=== PATIENT | male | born 1970 | race Caucasian/White ===

== ENCOUNTER 2017-05-10 21:29 | Inpatient (IN) | payer MEDICARE, BC ==
[2017-05-10] MEDS ORDERED: HYDROmorphone 2 MG/ML 1 ML SYRINGE IVP STA (22:17)
[2017-05-10] MEDS ORDERED: ONDANSETRON 4 MG/2 ML VIAL IVP STA (22:17)
[2017-05-10] MEDS ORDERED: SODIUM CHLORIDE 0.9% 1,000 ML IV STA ×2 (22:22)
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
[2017-05-10 22:49] LABS: Anisocytosis Moderate; Basophils % (A) 0 %; Eosinophils # (A) 0.1 k/uL (0-0.7); Eosinophils % (A) 1 %; HCT 31.2 % (39.0-53.0); HGB 9.4 gm/dL (13.0-17.5); Hypochromasia Marked; Lymphocytes # (A) 0.4 k/uL (1.0-4.8); Lymphocytes % (A) 7 %; MCH 23.4 pg (25.0-35.0); MCHC 30.1 g/dL (31.0-37.0); MCV 77.9 fL (80.0-100.0); Mean Platelet Volume 6.3; Microcytosis Moderate; Monocytes # (A) 0.2 k/uL (0-1.0); Monocytes % (A) 3 %; Neutrophils # (A) 5.3 k/uL (1.3-7.7); Neutrophils % (A) 88 %; Platelet Count 366 k/uL (150-450); Poikilocytosis Slight; RBC 4.01 m/uL (4.30-5.90); RDW 23.7 % (11.5-15.5); WBC 6.1 k/uL (3.8-10.6)
[2017-05-10 23:08] LABS: Creatine Kinase <20 U/L (55-170)
[2017-05-10 23:10] LABS: INR >10.0 (<1.2)
[2017-05-10 23:12] LABS: Partial Thromboplastin Time 90.4 sec (22.0-30.0)
[2017-05-10 23:13] LABS: Prothrombin Time >130.0 sec (9.0-12.0)
[2017-05-10 23:22] LABS: Creatine Kinase MB 0.5 ng/mL (0.0-2.4); Troponin I <0.012 ng/mL (0.000-0.034)
[2017-05-10 23:23] LABS: ALT 27 U/L (21-72); AST 14 U/L (17-59); Albumin 2.9 g/dL (3.5-5.0); Alkaline Phosphatase 172 U/L (38-126); Anion Gap 13 mmol/L; Blood Urea Nitrogen 4 mg/dL (9-20); Carbon Dioxide 20 mmol/L (22-30); Chloride 108 mmol/L (98-107); Glucose 146 mg/dL (74-99); Magnesium 1.7 mg/dL (1.6-2.3); Phosphorus 3.8 mg/dL (2.5-4.5); Sodium 141 mmol/L (137-145); Total Bilirubin 0.3 mg/dL (0.2-1.3); Total Protein 6.9 g/dL (6.3-8.2)
[2017-05-10] MEDS ORDERED: PHYTONADIONE ORAL 5 MG/5 ML ORAL.SYRG PO STA (23:32)
[2017-05-10 23:33] LABS: Potassium 3.3 mmol/L (3.5-5.1)
[2017-05-10] MEDS ORDERED: HYDROmorphone 1 MG/ML 1 ML SYRINGE IVP PRN (23:33)
[2017-05-10] MEDS ORDERED: PHYTONADIONE 5 MG in SODIUM CHLORIDE 0.9% 50 ML IVPB STA (23:54)
[2017-05-11] MEDS ORDERED: HYDROmorphone 2 MG/ML 1 ML SYRINGE IVP PRN (01:25)
[2017-05-11] MEDS ORDERED: Potassium Replacement Protocol 1 EACH MISC MISCELLANE PRN (04:24)
[2017-05-11] MEDS ORDERED: Magnesium Replacement Protocol 1 EACH MISC MISCELLANE PRN (04:25)
[2017-05-11] MEDS: HYDROmorphone 2 MG/ML 1 ML SYRINGE IVP PRN ×3 (04:46→09:54)
[2017-05-11] MEDS: ONDANSETRON 4 MG/2 ML VIAL IVP PRN ×2 (04:48→09:53)
[2017-05-11] MEDS: MAGNESIUM SULFATE-D5W PMX 1 GM in DEXTROSE/WATER 1 100ML.BAG IVPB SCH ×2 (04:49→05:54)
[2017-05-11] MEDS: METOCLOPRAMIDE 5 MG/ML 2 ML VIAL IVP SCH ×3 (05:54→17:09)
[2017-05-11] MEDS: POTASSIUM CHLORIDE 10 MEQ in WATER FOR INJECTION 1 100ML.BAG IVPB SCH ×2 (07:59→09:14)
[2017-05-11] MEDS ORDERED: PANTOPRAZOLE 40 MG/10 ML VIAL IVP SCH (09:00)
[2017-05-11 09:53] LABS: Anisocytosis Moderate; Basophils % (A) 0 %; Eosinophils % (A) 0 %; HCT 33.7 % (39.0-53.0); HGB 10.1 gm/dL (13.0-17.5); Hypochromasia Marked; Lymphocytes # (A) 0.8 k/uL (1.0-4.8); Lymphocytes % (A) 9 %; MCH 23.8 pg (25.0-35.0); MCV 79.2 fL (80.0-100.0); Mean Platelet Volume 6.4; Microcytosis Moderate; Monocytes # (A) 0.4 k/uL (0-1.0); Monocytes % (A) 4 %; Neutrophils % (A) 86 %; Platelet Count 526 k/uL (150-450); Poikilocytosis Moderate; RBC 4.26 m/uL (4.30-5.90); RDW 22.2 % (11.5-15.5); WBC 9.3 k/uL (3.8-10.6)
[2017-05-11 09:55] LABS: INR 2.2 (<1.2); Prothrombin Time 20.3 sec (9.0-12.0)
[2017-05-11 10:07] LABS: ALT 26 U/L (21-72); AST 14 U/L (17-59); Albumin 3.2 g/dL (3.5-5.0); Alkaline Phosphatase 184 U/L (38-126); Anion Gap 14 mmol/L; Blood Urea Nitrogen 3 mg/dL (9-20); Calcium 9.5 mg/dL (8.4-10.2); Carbon Dioxide 22 mmol/L (22-30); Chloride 109 mmol/L (98-107); Glucose 124 mg/dL (74-99); Potassium 3.7 mmol/L (3.5-5.1); Sodium 145 mmol/L (137-145); Total Bilirubin 0.3 mg/dL (0.2-1.3); Total Protein 7.4 g/dL (6.3-8.2)
[2017-05-11] MEDS: HYDROmorphone 2 MG TAB PO PRN ×2 (13:27→20:30)
[2017-05-11] MEDS: LISINOPRIL 20 MG TAB PO SCH (17:09)
[2017-05-11] MEDS: PANTOPRAZOLE 40 MG/10 ML VIAL IVP SCH (20:30)
[2017-05-11] MEDS ORDERED: ALTEPLASE 2 MG VIAL (CATHFLO) IV STA (22:53)
[2017-05-12] MEDS: METOCLOPRAMIDE 5 MG/ML 2 ML VIAL IVP SCH ×5 (00:19→18:50)
[2017-05-12] MEDS ORDERED: ONDANSETRON 4 MG TAB PO PRN (00:21)
[2017-05-12] MEDS: HYDROmorphone 2 MG TAB PO PRN ×6 (01:17→23:52)
[2017-05-12 05:34] LABS: Anisocytosis Moderate; Basophils % (A) 0 %; Eosinophils # (A) 0.1 k/uL (0-0.7); Eosinophils % (A) 1 %; HCT 27.5 % (39.0-53.0); Hypochromasia Marked; Lymphocytes # (A) 1.2 k/uL (1.0-4.8); Lymphocytes % (A) 13 %; MCH 23.5 pg (25.0-35.0); MCHC 29.3 g/dL (31.0-37.0); MCV 80.3 fL (80.0-100.0); Mean Platelet Volume 6.6; Microcytosis Moderate; Monocytes # (A) 0.5 k/uL (0-1.0); Monocytes % (A) 5 %; Neutrophils # (A) 7.2 k/uL (1.3-7.7); Neutrophils % (A) 80 %; Platelet Count 342 k/uL (150-450); Poikilocytosis Slight; RBC 3.43 m/uL (4.30-5.90); RDW 23.4 % (11.5-15.5); WBC 9.1 k/uL (3.8-10.6)
[2017-05-12 05:38] LABS: INR 1.5 (<1.2); Prothrombin Time 14.2 sec (9.0-12.0)
[2017-05-12 05:42] LABS: HGB 8.1 gm/dL (13.0-17.5)
[2017-05-12 05:48] LABS: Anion Gap 13 mmol/L; Blood Urea Nitrogen 3 mg/dL (9-20); Calcium 8.7 mg/dL (8.4-10.2); Carbon Dioxide 23 mmol/L (22-30); Chloride 103 mmol/L (98-107); Glucose 148 mg/dL (74-99); Magnesium 1.6 mg/dL (1.6-2.3); Potassium 3.9 mmol/L (3.5-5.1); Sodium 139 mmol/L (137-145)
[2017-05-12] MEDS: LISINOPRIL 20 MG TAB PO SCH (08:03)
--- NOTE | 2017-05-12 09:11 | HP ---
HISTORY AND PHYSICAL DATE OF SERVICE: 05/11/2017 I am covering for Dr. Ruvalcaba. CHIEF COMPLAINT: Nausea, vomiting, diarrhea. HISTORY OF PRESENT ILLNESS: This 46-year-old gentleman with a past medical history of multiple complex medical issues including DVT, history of GERD, hypertension history and infected endocarditis from infection of PICC line, history of kidney failure, history of DJD, history of multiple abdominal surgeries, osteomyelitis being followed by Dr. Juan Carlos Ruvalcbaa in the outpatient setting is admitted with abdominal pain, diffuse in character, nausea, vomiting, and diarrhea. Patient had intractable vomiting. Patient also had acute on chronic pain syndrome also. The patient unable to keep anything down. The patient admitted for further evaluation and treatment. There is no history of any fever, rigors. There is no history of headache, loss of consciousness, seizures. PAST MEDICAL HISTORY: History of DVT, history of GERD, history of DJD, history pneumonia, history of endocarditis, history of MRSA. MEDICATIONS: The home medications are: 1. Dilaudid 8 mg q.4 p.r.n. 2. Zofran 8 mg b.i.d. p.r.n. 3. Iron sulfate 1 p.o. daily. 4. Rifadin, rifampin, 600 mg p.o. daily. 5. Zestril 20 mg p.o. daily. 6. Iron Sulfate 325 mg p.o. daily. 7. MiraLAX 17 grams daily p.r.n. 8. Naprosyn 500 mg p.o. b.i.d. p.r.n. 9. Duragesic patch q.48 hours. 10.Zantac 150 mg p.o. b.i.d. 11.Benadryl 25 mg. 12.Tylenol 1000 mg t.i.d. 13.Zanaflex p.o. q.6 p.r.n. ALLERGIES: Allergies are AMPICILLIN, GENTAMICIN, IODINATED CONTRAST DYE, PEMOLINE, VANCOMYCIN. FAMILY HISTORY: History hyperlipidemia in the family. SOCIAL HISTORY: No history of smoking. No history of alcohol intake. REVIEW OF SYSTEMS: ENT: No diminished hearing or diminished vision. CARDIOVASCULAR SYSTEM: No angina. RESPIRATORY SYSTEM: No cough. GI: As mentioned earlier. : No dysuria. NERVOUS SYSTEM: No numbness or weakness. ALLERGY IMMUNOLOGY: No asthma or hayfever. MUSCULOSKELETAL: As mentioned earlier. HEMATOLOGY/ONCOLOGY: As mentioned earlier. ENDOCRINE: No history of diabetes or hypothyroidism. CONSTITUTIONAL: As mentioned earlier. DERMATOLOGY: Negative. RHEUMATOLOGY: Negative. PSYCHIATRY: As mentioned earlier. PHYSICAL EXAMINATION: The patient is alert and oriented x3. Pulse 91, blood pressure 179/80, respirations 16, temperature 97.4, pulse ox 100% on 4 L. HEENT: Conjunctivae normal. Oral mucosa moist. Neck is no jugular venous distention or carotid bruit. No lymph node enlargement. CARDIOVASCULAR: S1 and S2 muffled. No S3 or S4. RESPIRATORY: Breath sounds diminished at the bases. Few scattered rhonchi. No crackles. ABDOMEN: Soft. Mild diffuse discomfort on palpation. No guarding and no rigidity noted. No mass palpable. LEGS: No edema, no swelling. NERVOUS SYSTEM: Higher function as mentioned earlier. Moves all 4 limbs. No focal deficits. LYMPHATICS: No lymphadenopathy of the neck, axillae or groin. SKIN: No ulcer, rash or bleeding. LABS: WBCntd, hemoglobin 9.4. INR is more than 10. Sodium 141, potassium 3.3. ASSESSMENT: 1. Abdominal pain, nausea, vomiting, diarrhea, possible acute gastroenteritis. 2. Severe abdominal pain acute on chronic pain. 3. Coumadin coagulopathy. 4. Anemia microcytic. 5. Hypokalemia. 6. History of deep vein thrombosis. 7. History of gastroesophageal reflux disease. 8. History of degenerative joint disease. 9. History of pneumonia. 10.History of endocarditis from infected PICC line. 11.History hypertension. 12.History of kidney failure related to vancomycin. 13.History of septic shock. 14.History of splenomegaly. 15.History of methicillin-resistant Staphylococcus aureus. 16.History MDRO. 17.History of appendectomy. 18.History of anxiety. RECOMMENDATIONS AND DISCUSSION: This 46-year-old gentleman who presented with multiple complex medical issues, will monitor the patient closely, continue the current medications, continue symptomatic treatment. will be given. Will monitor PT/INR closely. I would also recommend follow with repeat labs. Other than that, pain medications ordered including fentanyl patch. The rest of the medication will be ordered once the patient is improving from the vomiting. Otherwise I would also recommend a stool for C difficile testing. Guarded prognosis. Further recommendations to follow. Will obtain cultures. MMODL / IJN: [id number] / HUSAM
[2017-05-12] MEDS: MAGNESIUM SULFATE-D5W PMX 1 GM in DEXTROSE/WATER 1 100ML.BAG IVPB SCH ×2 (09:27→10:39)
[2017-05-12] MEDS: PANTOPRAZOLE 40 MG/10 ML VIAL IVP SCH (09:27)
--- NOTE | 2017-05-12 12:53 | P.PN ---
Subjective Patient resting in bed continues to complain of generalized abdominal pain. Noted to have incisional hernias. We'll consult surgery regarding abdominal pain Objective - Vital Signs Vital signs: Vital Signs Temp 97.8 F 05/12/17 07:00 Pulse 58 L 05/12/17 07:00 Resp 16 05/12/17 07:00 BP 118/93 05/12/17 11:05 Pulse Ox 98 05/12/17 07:00 Intake & Output 05/11/17 05/12/17 05/12/17 18:59 06:59 18:59 Intake Total 200 Output Total 3 Balance 197 Intake: Oral 200 Output: Urine/Stool Mix 3 Other: Voiding Method Bedside Commode Urinal Urinal Urinal # Voids 2 2 # Bowel Movements 1 - Constitutional General appearance: Present: mild distress - EENT Eyes: Present: PERRLA Ears: bilateral: normal - Neck Neck: Present: normal ROM - Respiratory Respiratory: bilateral: CTA - Cardiovascular Rhythm: regular - Gastrointestinal General gastrointestinal: Present: decreased bowel sounds, soft Localized gastrointestinal: tender: diffuse - Integumentary Integumentary: Present: normal - Neurologic Neurologic: Present: CNII-XII intact - Musculoskeletal Musculoskeletal: Present: generalized weakness - Psychiatric Psychiatric: Present: A&O x's 3, appropriate affect, intact judgment & insight - Labs CBC & Chem 7: 05/12/17 05:20 05/12/17 05:20 Labs: Abnormal Lab Results - Last 24 Hours (Table) 05/12/17 05/12/17 05/12/17 Range/Units 05:20 05:20 05:20 RBC 3.43 L (4.30-5.90) m/uL Hgb 8.1 L D (13.0-17.5) gm/dL Hct 27.5 L (39.0-53.0) % MCH 23.5 L (25.0-35.0) pg MCHC 29.3 L (31.0-37.0) g/dL RDW 23.4 H (11.5-15.5) % PT 14.2 H (9.0-12.0) sec INR 1.5 H (<1.2) BUN 3 L (9-20) mg/dL Glucose 148 H (74-99) mg/dL Assessment and Plan Plan: Assessment Abdominal pain with the nausea vomiting diarrhea Coumadin coagulopathy anemia microcytic Hyperkalemia History of right arm DVT History of GERD Lumbar osteomyelitis history with surgery D April 10 at [place] History of endocarditis from infected PICC line Hypertension History of MRSA Plan Consultation with surgery
--- NOTE | 2017-05-12 13:32 | XR ---
EXAMINATION TYPE: XR abdomen acute w cxr DATE OF EXAM: 05/12/2017 COMPARISON: NONE HISTORY: Incisional hernia abdominal pain TECHNIQUE: Abdomen is examined in the supine and upright views and supplemented with a frontal chest. FINDINGS: There may be some mild infiltrate within the right lower lobe. No free air is under the diaphragm. Pedicle screws and fixation rods within the lumbar spine are pres ent. Disc spacer is present. Normal colonic bowel gas is present. No free air is evident. No differential air-fluid levels are pre sent. No mass effect is evident. Organomegaly is not present. IMPRESSION: 1. Unremarkable abdomen. 2. Suggestion of mild right lower lobe infiltrate. Clinical correlation recommended.
[2017-05-12] MEDS ORDERED: AZITHROMYCIN 500 MG in SODIUM CHLORIDE 0.9% 250 ML IVPB STA (15:10)
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
[2017-05-12] MEDS: PANTOPRAZOLE 40 MG TABLET PO SCH (17:32)
--- NOTE | 2017-05-12 21:39 | US ---
EXAMINATION TYPE: US venous doppler duplex LE DATE OF EXAM: 05/12/2017 9:13 PM COMPARISON: NONE CLINICAL HISTORY: red hot swollen feet and pitting edema. SIDE PERFORMED: Bilateral TECHNIQUE: The lower extremity deep venous system is examined utilizing real time linear array sonog lina with graded compression, doppler sonography and color-flow sonography. VESSELS IMAGED: External Iliac Vein (EIV) Common Femoral Vein Deep Femoral Vein Greater Saphenous Vein * Femoral Vein Popliteal Vein Small Saphenous Vein * Proximal Calf Veins (* superficial vessels) FINDINGS: Grayscale, color doppler, spectral doppler imaging performed of the deep veins of the lower extremities. There is normal flow, compressibility, vascular waveforms. IMPRESSION: 1. RIGHT LOWER EXTREMITY: NEGATIVE FOR DVT 2. LEFT LOWER EXTREMITY: NEGATIVE FOR DVT
[2017-05-12] MEDS: HYDROmorphone 2 MG/ML 1 ML SYRINGE IVP PRN (22:29)
[2017-05-13] MEDS: LEVOFLOXACIN 750MG-D5W PMX 750 MG in DEXTROSE/WATER 1 150ML.BAG IVPB SCH (00:08)
[2017-05-13] MEDS: DAPTOmycin IN 0.9% NACL 500 MG/10 ML SYRINGE IVP SCH (00:09)
[2017-05-13] MEDS: METOCLOPRAMIDE 5 MG/ML 2 ML VIAL IVP SCH ×4 (00:09→17:46)
[2017-05-13] MEDS: HYDROmorphone 2 MG/ML 1 ML SYRINGE IVP PRN ×5 (02:07→17:46)
[2017-05-13] MEDS: HYDROmorphone 2 MG TAB PO PRN ×5 (03:24→20:36)
[2017-05-13] MEDS: LISINOPRIL 20 MG TAB PO SCH (07:35)
[2017-05-13] MEDS: PANTOPRAZOLE 40 MG TABLET PO SCH ×2 (07:36→17:46)
--- NOTE | 2017-05-13 10:27 | P.PN ---
<MargaritoRosie M - Last Filed: 05/13/17 11:51> Subjective Progress Note Date: 05/13/17 46-year-old male seen and examined sitting up in a chair currently denying any abdominal pain reports no nausea vomiting states the symptoms have resolved. Labs this morning pending. Is being seen at the request of the attending for a surgical eval for abdominal discomfort in a patient who has known umbilical hernia being treated conservatively by his attending surgeon Dr.kim Ruvalcaba Objective - Vital Signs Vital signs: Vital Signs Temp 97.5 F L 05/13/17 07:00 Pulse 97 05/13/17 07:00 Resp 17 05/13/17 07:00 BP 140/90 05/13/17 07:00 Pulse Ox 99 05/13/17 00:58 Intake & Output 05/12/17 05/13/17 05/13/17 18:59 06:59 18:59 Intake Total 600 180 Output Total 400 Balance -400 600 180 Intake: IV 150 Levofloxacin 750Mg-D5w 150 Pmx 750 mg In Dextrose/ Water 1 150ml.bag @ 100 mls/hr IVPB Q24H PRISCILLA Rx#: [id number] Oral 450 180 Output: Urine 400 Other: Voiding Method Urinal Toilet Urinal # Voids 2 2 - Exam Physical exam 46-year-old sitting up in a chair pleasant cooperative oriented 3 Lungs adequate air movement bilaterally Heart S1-S2 audible regular Abdomen multiple surgical scars well-healed umbilical hernia noted soft not distended taking diet no nausea no vomiting states stooling Extremities no edema - Labs CBC & Chem 7: 05/12/17 05:20 05/12/17 05:20 Labs: Microbiology - Last 24 Hours (Table) 05/11/17 07:53 Blood Culture Gram Stain - Preliminary Blood Blood Culture - Preliminary 05/12/17 07:45 Blood Culture - Final Blood 05/12/17 10:45 Urine Culture - Preliminary Urine,Clean Catch Assessment and Plan Assessment: Impression Present on admission abdominal pain nausea vomiting diarrhea resolved Known history of umbilical hernias Present on admission Coumadin coagulopathy Lumbar osteomyelitis with a recent lumbar surgery April 10 at [facility] History of endocarditis from an infected PICC line History of MRSA infection Plan No evidence of an acute surgical abdomen Defer to medicine to manage medical issues Will follow with further surgical recommendations Conservative care continue with the use of an abdominal binder Progress note dictated for The above impression and plan of care have been discussed and directed by signing physician. Rosie Pimentel nurse practitioner acting as scribe for signing physician. <Uriah Goetz - Last Filed: 05/13/17 17:30> Objective - Vital Signs Vital signs: Vital Signs Temp 97.3 F L 05/13/17 14:13 Pulse 87 05/13/17 14:13 Resp 16 05/13/17 14:13 BP 128/70 05/13/17 14:13 Pulse Ox 97 05/13/17 14:13 Intake & Output 05/12/17 05/13/17 05/13/17 18:59 06:59 18:59 Intake Total 600 360 Output Total 400 Balance -400 600 360 Intake: IV 150 Levofloxacin 750Mg-D5w 150 Pmx 750 mg In Dextrose/ Water 1 150ml.bag @ 100 mls/hr IVPB Q24H PRISCILLA Rx#: [id number] Oral 450 360 Output: Urine 400 Other: Voiding Method Urinal Toilet Urinal # Voids 2 1 - Labs CBC & Chem 7: 05/12/17 05:20 05/12/17 05:20 Labs: Microbiology - Last 24 Hours (Table) 05/12/17 10:45 Urine Culture - Final Urine,Clean Catch 05/11/17 07:53 Blood Culture Gram Stain - Preliminary Blood Blood Culture - Preliminary Gram Neg Bacilli 05/12/17 07:45 Blood Culture - Final Blood Assessment and Plan Plan: Patient has an incisional hernia. It is chronic in nature. He has no obstructive symptoms of pain. No surgical intervention is planned at this point. We'll follow as needed.
--- NOTE | 2017-05-13 11:57 | P.PN ---
Subjective Patient sitting up in the chair complaints offered at this time other than chronic back pain. Patient had positive blood cultures Dr. Amaral consult and started on daptomycin and Levaquin Objective - Vital Signs Vital signs: Vital Signs Temp 97.5 F L 05/13/17 07:00 Pulse 97 05/13/17 07:00 Resp 17 05/13/17 07:00 BP 140/90 05/13/17 07:00 Pulse Ox 99 05/13/17 00:58 Intake & Output 05/12/17 05/13/17 05/13/17 18:59 06:59 18:59 Intake Total 600 180 Output Total 400 Balance -400 600 180 Intake: IV 150 Levofloxacin 750Mg-D5w 150 Pmx 750 mg In Dextrose/ Water 1 150ml.bag @ 100 mls/hr IVPB Q24H PRISCILLA Rx#: [id number] Oral 450 180 Output: Urine 400 Other: Voiding Method Urinal Toilet Urinal # Voids 2 2 - Constitutional General appearance: Present: mild distress - EENT Eyes: Present: abnormal pupil Ears: bilateral: normal - Neck Neck: Present: normal ROM - Respiratory Respiratory: bilateral: CTA - Cardiovascular Rhythm: regular - Gastrointestinal General gastrointestinal: Present: soft - Integumentary Integumentary: Present: normal - Neurologic Neurologic: Present: CNII-XII intact - Musculoskeletal Musculoskeletal: Present: generalized weakness - Labs CBC & Chem 7: 05/12/17 05:20 05/12/17 05:20 Labs: Microbiology - Last 24 Hours (Table) 05/11/17 07:53 Blood Culture Gram Stain - Preliminary Blood Blood Culture - Preliminary Gram Neg Bacilli 05/12/17 07:45 Blood Culture - Final Blood 05/12/17 10:45 Urine Culture - Preliminary Urine,Clean Catch - Imaging and Cardiology Chest x-ray: report reviewed Abdominal x-ray: report reviewed Assessment and Plan Plan: Assessment Abdominal pain with vomiting and diarrhea Pneumonia Sepsis as evidenced by positive blood cultures Coumadin coagulopathy Anemia microcytic Hypokalemia History of DVT right arm 3 weeks ago from [facility] GERD Degenerative joint disease Remote history of endocarditis from infected PICC line Hypertension History of splenomegaly Anxiety history Lumbar osteomyelitis and treated at [place] in 04/10/2017 Plan Cleared by surgery for abdominal pain Dr. Amaral consult did regarding sepsis
--- NOTE | 2017-05-13 16:37 | US ---
EXAMINATION TYPE: US venous doppler duplex UE RT DATE OF EXAM: 05/13/2017 COMPARISON: NONE CLINICAL HISTORY: right arm DVT Hx of blood clot right arm 2 weeks prior done at another hospital. SIDE PERFORMED: right Preliminary results left with Christie (charge nurse) following exam at 3:30pm Right Arm: Positive for DVT Thready flow in subclavian v, prox through distal, axilla v shows thrombus which extends through the lower brachial v's Cephalic v too small to show flow. There is satisfactory color flow phasicity and compressibility in the right internal jugular vein. Th ere is evidence of clot beginning in the distal subclavian vein near axillary vein junction extending into the right upper extremity. IMPRESSION: Persistent DVT in the right upper extremity extending through axillary vein and proximal subclavian vein near axilla. Results communicated to patient's nurse via telephone by cat scan technologist shortly after exam w as completed.
[2017-05-13 20:15] LABS: Anisocytosis Moderate; Basophils % (A) 0 %; Eosinophils # (A) 0.5 k/uL (0-0.7); Eosinophils % (A) 8 %; HCT 28.6 % (39.0-53.0); HGB 8.5 gm/dL (13.0-17.5); Hypochromasia Marked; Lymphocytes # (A) 0.7 k/uL (1.0-4.8); Lymphocytes % (A) 11 %; MCH 23.9 pg (25.0-35.0); MCHC 29.6 g/dL (31.0-37.0); MCV 80.6 fL (80.0-100.0); Mean Platelet Volume 6.2; Microcytosis Slight; Monocytes # (A) 0.3 k/uL (0-1.0); Monocytes % (A) 4 %; Neutrophils # (A) 4.4 k/uL (1.3-7.7); Neutrophils % (A) 75 %; Platelet Count 250 k/uL (150-450); Poikilocytosis Slight; RBC 3.54 m/uL (4.30-5.90); RDW 21.2 % (11.5-15.5); WBC 5.8 k/uL (3.8-10.6)
[2017-05-13 20:20] LABS: INR 1.2 (<1.2); Prothrombin Time 11.4 sec (9.0-12.0)
[2017-05-13 20:23] LABS: Anion Gap 10 mmol/L; Blood Urea Nitrogen 5 mg/dL (9-20); Carbon Dioxide 25 mmol/L (22-30); Chloride 100 mmol/L (98-107); Glucose 107 mg/dL (74-99); Magnesium 1.5 mg/dL (1.6-2.3); Potassium 3.7 mmol/L (3.5-5.1); Sodium 135 mmol/L (137-145)
[2017-05-13] MEDS: MAGNESIUM SULFATE-D5W PMX 1 GM in DEXTROSE/WATER 1 100ML.BAG IVPB SCH ×2 (22:00→23:25)
--- NOTE | 2017-05-13 22:48 | CONS ---
CONSULTATION This is a 46-year-old gentleman who has a complex history. He has history of lumbar surgery and postop the patient has of the lumbar spine. The patient on IV antibiotics. 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 Ultrasound done today shows axillary and subclavian vein DVT. The patient has a known history of DVT due to the PICC line on the right subclavian vein. No history of any chest pain. Patient came with nausea and vomiting and abdominal pain. Patient has a hernia repair done in the past by Dr. Ruvalcaba. The patient was seen by Dr. Goetz. His belly is soft and he is tolerating diet and activity well. EXAMINATION: Patient was seen in his room in sitting position. NECK: Supple. CHEST: Clear to auscultation. Right arm brachial radial and femoral pulses present. There is no vascular compromise noted of the right lower and upper extremities. Patient has a PICC line on the left side for long-term antibiotics. Patient came with high INR and his Coumadin has been stopped. At present patient is not on any anticoagulation. Since the patient has a DVT of the right arm, the patient will be on anticoagulation. I have recommendation to have the consult with Dr. Cummings to evaluate whether the patient can go on Xarelto or Eliquis because the patient is on Coumadin. His INR came with very high INR of 17 and the patient has not taken his Coumadin for the last 1 week and his INR is within normal limits. Patient has to be on some anticoagulation. I will have an opinion from Dr. Cummings. We will follow with you. At this point, patient does not need any surgical intervention. Thank you very much for the consultation. MMODL / IJN: [id number] /
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
[2017-05-14] MEDS: METOCLOPRAMIDE 5 MG/ML 2 ML VIAL IVP SCH ×5 (00:37→23:55)
[2017-05-14] MEDS: DAPTOmycin IN 0.9% NACL 500 MG/10 ML SYRINGE IVP SCH ×2 (00:37→22:04)
[2017-05-14] MEDS: LEVOFLOXACIN 750MG-D5W PMX 750 MG in DEXTROSE/WATER 1 150ML.BAG IVPB SCH (00:38)
[2017-05-14] MEDS: HYDROmorphone 2 MG TAB PO PRN ×7 (00:38→23:55)
[2017-05-14 07:28] LABS: INR 1.2 (<1.2); Prothrombin Time 11.2 sec (9.0-12.0)
[2017-05-14 07:33] LABS: Anisocytosis Moderate; Basophils % (A) 0 %; Eosinophils # (A) 0.6 k/uL (0-0.7); Eosinophils % (A) 13 %; HCT 26.2 % (39.0-53.0); Hypochromasia Marked; Lymphocytes # (A) 0.7 k/uL (1.0-4.8); Lymphocytes % (A) 14 %; MCH 24.2 pg (25.0-35.0); MCHC 30.4 g/dL (31.0-37.0); MCV 79.4 fL (80.0-100.0); Mean Platelet Volume 7.1; Microcytosis Moderate; Monocytes # (A) 0.2 k/uL (0-1.0); Monocytes % (A) 5 %; Neutrophils % (A) 66 %; Platelet Count 238 k/uL (150-450); Poikilocytosis Slight; RDW 22.6 % (11.5-15.5); WBC 4.5 k/uL (3.8-10.6)
[2017-05-14 07:58] LABS: Anion Gap 12 mmol/L; Blood Urea Nitrogen 6 mg/dL (9-20); Calcium 8.9 mg/dL (8.4-10.2); Carbon Dioxide 23 mmol/L (22-30); Chloride 100 mmol/L (98-107); Glucose 187 mg/dL (74-99); Magnesium 1.8 mg/dL (1.6-2.3); Potassium 3.9 mmol/L (3.5-5.1); Sodium 135 mmol/L (137-145)
--- NOTE | 2017-05-14 08:09 | P.PN ---
Subjective Progress Note Date: 05/14/17 Pleasant 46-year-old male sitting up in a chair taking a diet. Recommendations by infectious disease reviewed noted and appreciated patient states abdominal pain with nausea and vomiting symptoms that he had on admission have resolved. Objective - Vital Signs Vital signs: Vital Signs Temp 97.4 F L 05/14/17 07:54 Pulse 76 05/14/17 07:54 Resp 16 05/14/17 07:54 BP 114/65 05/14/17 07:54 Pulse Ox 96 05/14/17 07:54 Intake & Output 05/13/17 05/14/17 05/14/17 18:59 06:59 18:59 Intake Total 360 Balance 360 Intake: Oral 360 Other: Voiding Method Toilet Urinal # Voids 1 3 - Exam Physical exam 46-year-old male sitting up in a chair pleasant cooperative oriented 3 Lungs adequate air movement bilaterally on room air Heart S1-S2 audible regular 9 chest pain Abdomen soft not distended nontender palpable umbilical hernia no nausea no vomiting and denying abdominal pain states no stool Extremities no edema noted PICC line in place left upper arm no redness - Labs CBC & Chem 7: 05/14/17 07:02 05/14/17 07:02 Labs: Abnormal Lab Results - Last 24 Hours (Table) 05/13/17 05/13/17 05/13/17 Range/Units 20:11 20:11 20:11 RBC 3.54 L (4.30-5.90) m/uL Hgb 8.5 L (13.0-17.5) gm/dL Hct 28.6 L (39.0-53.0) % MCV (80.0-100.0) fL MCH 23.9 L (25.0-35.0) pg MCHC 29.6 L (31.0-37.0) g/dL RDW 21.2 H (11.5-15.5) % Lymphocytes # 0.7 L (1.0-4.8) k/uL INR 1.2 H (<1.2) Sodium 135 L (137-145) mmol/L BUN 5 L (9-20) mg/dL Creatinine 0.63 L (0.66-1.25) mg/dL Glucose 107 H (74-99) mg/dL Magnesium 1.5 L (1.6-2.3) mg/dL 05/14/17 05/14/17 Range/Units 07:02 07:02 RBC 3.30 L (4.30-5.90) m/uL Hgb 8.0 L (13.0-17.5) gm/dL Hct 26.2 L (39.0-53.0) % MCV 79.4 L (80.0-100.0) fL MCH 24.2 L (25.0-35.0) pg MCHC 30.4 L (31.0-37.0) g/dL RDW 22.6 H (11.5-15.5) % Lymphocytes # 0.7 L (1.0-4.8) k/uL INR 1.2 H (<1.2) Sodium (137-145) mmol/L BUN (9-20) mg/dL Creatinine (0.66-1.25) mg/dL Glucose (74-99) mg/dL Magnesium (1.6-2.3) mg/dL Microbiology - Last 24 Hours (Table) 05/12/17 10:45 Urine Culture - Final Urine,Clean Catch 05/11/17 07:53 Blood Culture Gram Stain - Preliminary Blood Blood Culture - Preliminary Gram Neg Bacilli Assessment and Plan Assessment: Impression Present on admission abdominal pain nausea vomiting diarrhea resolved Known history of umbilical hernias Present on admission Coumadin coagulopathy Lumbar osteomyelitis with a recent lumbar surgery April 10 at [facility] History of endocarditis from an infected PICC line History of MRSA infection Plan No evidence of an acute surgical abdomen Defer to medicine to manage medical issues Conservative management for the umbilical hernia Agree with Conservative care continue with the use of an abdominal binder Will sign off no further surgical recommendations at this time re-eval as needed The above impression and plan of care have been discussed and directed by signing physician. Rosie Pimentel nurse practitioner acting as scribe for signing physician.
[2017-05-14] MEDS: PANTOPRAZOLE 40 MG TABLET PO SCH ×2 (09:02→18:10)
[2017-05-14] MEDS: LISINOPRIL 20 MG TAB PO SCH (09:02)
--- NOTE | 2017-05-14 11:10 | P.PN ---
Subjective Patient resting in chair. Complains of fatigue. Patient had consultation with vascular and hematology regarding right arm DVT. The patient to be started on oral anticoagulant. Patient continues on consultation with infectious disease on daptomycin and Levaquin Objective - Vital Signs Vital signs: Vital Signs Temp 97.4 F L 05/14/17 07:54 Pulse 76 05/14/17 07:54 Resp 16 05/14/17 07:54 BP 114/65 05/14/17 07:54 Pulse Ox 96 05/14/17 07:54 Intake & Output 05/13/17 05/14/17 05/14/17 18:59 06:59 18:59 Intake Total 360 237 Balance 360 237 Intake: Oral 360 237 Other: Voiding Method Toilet Urinal # Voids 1 3 - Constitutional General appearance: Present: mild distress - EENT Eyes: Present: abnormal pupil Ears: bilateral: normal - Neck Neck: Present: normal ROM - Respiratory Respiratory: bilateral: CTA - Cardiovascular Rhythm: regular - Gastrointestinal General gastrointestinal: Present: soft - Integumentary Integumentary: Present: normal - Neurologic Neurologic: Present: CNII-XII intact - Musculoskeletal Musculoskeletal: Present: generalized weakness - Psychiatric Psychiatric: Present: appropriate affect, intact judgment & insight - Labs CBC & Chem 7: 05/14/17 07:02 05/14/17 07:02 Labs: Abnormal Lab Results - Last 24 Hours (Table) 05/13/17 05/13/17 05/13/17 Range/Units 20:11 20:11 20:11 RBC 3.54 L (4.30-5.90) m/uL Hgb 8.5 L (13.0-17.5) gm/dL Hct 28.6 L (39.0-53.0) % MCV (80.0-100.0) fL MCH 23.9 L (25.0-35.0) pg MCHC 29.6 L (31.0-37.0) g/dL RDW 21.2 H (11.5-15.5) % Lymphocytes # 0.7 L (1.0-4.8) k/uL INR 1.2 H (<1.2) Sodium 135 L (137-145) mmol/L BUN 5 L (9-20) mg/dL Creatinine 0.63 L (0.66-1.25) mg/dL Glucose 107 H (74-99) mg/dL Magnesium 1.5 L (1.6-2.3) mg/dL 05/14/17 05/14/17 05/14/17 Range/Units 07:02 07:02 07:02 RBC 3.30 L (4.30-5.90) m/uL Hgb 8.0 L (13.0-17.5) gm/dL Hct 26.2 L (39.0-53.0) % MCV 79.4 L (80.0-100.0) fL MCH 24.2 L (25.0-35.0) pg MCHC 30.4 L (31.0-37.0) g/dL RDW 22.6 H (11.5-15.5) % Lymphocytes # 0.7 L (1.0-4.8) k/uL INR 1.2 H (<1.2) Sodium 135 L (137-145) mmol/L BUN 6 L (9-20) mg/dL Creatinine 0.56 L (0.66-1.25) mg/dL Glucose 187 H (74-99) mg/dL Magnesium (1.6-2.3) mg/dL Microbiology - Last 24 Hours (Table) 05/11/17 07:53 Blood Culture Gram Stain - Preliminary Blood Blood Culture - Preliminary Escherichia coli Alpha Hemolytic Streptococcus Group D Enterococcus 05/12/17 10:45 Urine Culture - Final Urine,Clean Catch - Imaging and Cardiology Venous US: report reviewed Assessment and Plan Plan: Assessment Abdominal pain resolved stable incisional hernia Coumadin coagulopathy Anemia microcytic Hypokalemia DVT to right arm post PICC line GERD Degenerative joint disease History of endocarditis from infected PICC line remote Hypertension Splenomegaly history of MRSA History of anxiety Left arm PICC line Osteomyelitis lumbar recent surgery at [place] April 10 Sepsis Plan Continue consultation with infectious disease Continue consultation with hematology regarding anticoagulation
[2017-05-14] MEDS: CEFEPIME 2 GM in SODIUM CHLORIDE 0.9% 50 ML IVPB SCH ×3 (12:31→23:55)
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
[2017-05-14] MEDS: APIXABAN 5 MG TAB PO SCH (22:04)
--- NOTE | 2017-05-14 23:36 | P.PN ---
Subjective Progress Note Date: 05/14/17 Principal diagnosis: sepsis 46-year-old male well-known to the infectious disease service regarding his many hospitalizations. He's had multiple bouts of sepsis including PICC line related infections that were polymicrobial in nature. In the latter part of 2016 he was in the [facility] for potential abdominal wall reconstructive surgery. However because of the patient's many many infections he was deemed a very poor candidate even for biological mesh because of the risk of infection. Fortunately the abdominal wall is intact. He does have intermittent bouts of some discomfort. He then relates he started developing increasing amounts of back pain. He was seen by his surgeon at [facility]. 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 Then reports that he underwent a decompressive procedure isn't receiving intravenous antibiotic therapy with daptomycin and Tefloro. Patient chaz was doing relatively well until he had the sudden onset of increasing abdominal pain associated with nausea and emesis. He felt very poorly. At presentation he had evidence of high-grade fever some chills and appeared to have sepsis. With evidence of a positive blood culture for gram-negative bacilli E infectious diseases consultation has been requested. Data from the outside hospital has been requested. This is to clarify his blood cultures, surgical cultures, and current inpatient intravenous antibiotic therapy. The patient has significant difficulties with IV access. At this facility and at [facility] there have been difficulties with placement of his PICC lines. Other than his chronic back pain is feeling better today. Fever and chills improved. Appetite is adequate. Objective - Vital Signs Vital signs: Vital Signs Temp 97.3 F L 05/14/17 20:00 Pulse 74 05/14/17 20:00 Resp 18 05/14/17 20:00 BP 112/60 05/14/17 20:00 Pulse Ox 96 05/14/17 20:00 Intake & Output 05/14/17 05/14/17 05/15/17 06:59 18:59 06:59 Intake Total 237 Output Total 800 Balance 237 -800 Intake: Oral 237 Output: Urine 800 Other: Voiding Method Toilet Toilet Toilet Urinal Urinal Urinal # Voids 3 1 2 - Exam 46-year-old male who is more comfortable at this time that admission. With his back pain is stabilized. HEENT: Anicteric conjunctiva are pink and moist nasal mucosa grossly intact without significant lesions, there is no thrush. Does have evidence of the injury to his eye. Neck: The neck is supple without significant lymphadenopathy or thyromegaly. Surgical scar is well-healed Lungs: Good bilateral air entry without significant crackles or wheezing. There is no significant bronchial sounds. There is no egophony or dullness. Heart: Regular with an audible S1 and S2 no S3 soft S4 2/6 murmur left sternal border without radiation. PMI was nondisplaced Abdomen: Positive bowel sounds soft and without significant tenderness. No palpable masses or organomegaly. There is benefits of the extensive prior surgical interventions but the abdominal wall is intact without opening or drainage. Extremities: Left upper extremity has a PICC line. Right upper extremity reveals some swelling in the patient relates a recent deep venous thrombosis diagnosed at [facility]. Confirmed here. Lower extremities have some trace edema. Spine shows evidence of the recent surgical interventions that are healing well some point tenderness but no bulge or purulence is seen. Neuro: Awake alert oriented to person place and time. There are no acute new gross focal sensory motor deficits. - Labs CBC & Chem 7: 05/14/17 07:02 05/14/17 07:02 Labs: Abnormal Lab Results - Last 24 Hours (Table) 05/14/17 05/14/17 05/14/17 Range/Units 07:02 07:02 07:02 RBC 3.30 L (4.30-5.90) m/uL Hgb 8.0 L (13.0-17.5) gm/dL Hct 26.2 L (39.0-53.0) % MCV 79.4 L (80.0-100.0) fL MCH 24.2 L (25.0-35.0) pg MCHC 30.4 L (31.0-37.0) g/dL RDW 22.6 H (11.5-15.5) % Lymphocytes # 0.7 L (1.0-4.8) k/uL INR 1.2 H (<1.2) Sodium 135 L (137-145) mmol/L BUN 6 L (9-20) mg/dL Creatinine 0.56 L (0.66-1.25) mg/dL Glucose 187 H (74-99) mg/dL Microbiology - Last 24 Hours (Table) 05/13/17 08:33 Blood Culture - Preliminary Blood No Growth after 24 hours 05/11/17 07:53 Blood Culture Gram Stain - Preliminary Blood Blood Culture - Preliminary Escherichia coli Alpha Hemolytic Streptococcus Group D Enterococcus Laboratory Results WBC 4.5 k/uL (3.8-10.6) 05/14/17 07:02 RBC 3.30 m/uL (4.30-5.90) L 05/14/17 07:02 Hgb 8.0 gm/dL (13.0-17.5) L 05/14/17 07:02 Hct 26.2 % (39.0-53.0) L 05/14/17 07:02 MCV 79.4 fL (80.0-100.0) L 05/14/17 07:02 MCH 24.2 pg (25.0-35.0) L 05/14/17 07:02 MCHC 30.4 g/dL (31.0-37.0) L 05/14/17 07:02 RDW 22.6 % (11.5-15.5) H 05/14/17 07:02 Plt Count 238 k/uL (150-450) 05/14/17 07:02 Neutrophils % 66 % 05/14/17 07:02 Lymphocytes % 14 % 05/14/17 07:02 Monocytes % 5 % 05/14/17 07:02 Eosinophils % 13 % 05/14/17 07:02 Basophils % 0 % 05/14/17 07:02 Neutrophils # 3.0 k/uL (1.3-7.7) 05/14/17 07:02 Lymphocytes # 0.7 k/uL (1.0-4.8) L 05/14/17 07:02 Monocytes # 0.2 k/uL (0-1.0) 05/14/17 07:02 Eosinophils # 0.6 k/uL (0-0.7) 05/14/17 07:02 Basophils # 0.0 k/uL (0-0.2) 05/14/17 07:02 Manual Slide Review Performed 05/10/17 22:40 Hypochromasia Marked 05/14/17 07:02 Poikilocytosis Slight 05/14/17 07:02 Anisocytosis Moderate 05/14/17 07:02 Microcytosis Moderate 05/14/17 07:02 PT 11.2 sec (9.0-12.0) 05/14/17 07:02 INR 1.2 (<1.2) H 05/14/17 07:02 APTT 90.4 sec (22.0-30.0) H 05/10/17 22:40 Sodium 135 mmol/L (137-145) L 05/14/17 07:02 Potassium 3.9 mmol/L (3.5-5.1) 05/14/17 07:02 Chloride 100 mmol/L (98-107) 05/14/17 07:02 Carbon Dioxide 23 mmol/L (22-30) 05/14/17 07:02 Anion Gap 12 mmol/L 05/14/17 07:02 BUN 6 mg/dL (9-20) L 05/14/17 07:02 Creatinine 0.56 mg/dL (0.66-1.25) L 05/14/17 07:02 Est GFR (MDRD) Af Amer >60 (>60 ml/min/1.73 sqM) 05/14/17 07:02 Est GFR (MDRD) Non-Af >60 (>60 ml/min/1.73 sqM) 05/14/17 07:02 Glucose 187 mg/dL (74-99) H 05/14/17 07:02 Calcium 8.9 mg/dL (8.4-10.2) 05/14/17 07:02 Phosphorus 3.8 mg/dL (2.5-4.5) 05/10/17 22:40 Magnesium 1.8 mg/dL (1.6-2.3) 05/14/17 07:02 Total Bilirubin 0.3 mg/dL (0.2-1.3) 05/11/17 09:16 AST 14 U/L (17-59) L 05/11/17 09:16 ALT 26 U/L (21-72) 05/11/17 09:16 Alkaline Phosphatase 184 U/L (38-126) H 05/11/17 09:16 Total Creatine Kinase <20 U/L (55-170) L 05/10/17 22:40 CK-MB (CK-2) 0.5 ng/mL (0.0-2.4) 05/10/17 22:40 CK-MB (CK-2) Rel Index 05/10/17 22:40 Troponin I <0.012 ng/mL (0.000-0.034) 05/10/17 22:40 Total Protein 7.4 g/dL (6.3-8.2) 05/11/17 09:16 Albumin 3.2 g/dL (3.5-5.0) L 05/11/17 09:16 Microbiology 05/13/17 08:33 Blood Blood Culture - Preliminary No Growth after 24 hours 05/11/17 07:53 Blood Blood Culture Gram Stain - Preliminary 05/11/17 07:53 Blood Blood Culture - Preliminary Escherichia coli Alpha Hemolytic Streptococcus Group D Enterococcus 05/12/17 10:45 Urine,Clean Catch Urine Culture - Final 05/12/17 07:45 Blood Blood Culture - Final Assessment and Plan (1) Gram negative sepsis Narrative/Plan: 46 year male who is a very complicated and convoluted past medical history presents to the emergency center for further evaluation. He was having nausea and emesis and acute abdominal pain. This is now improved since he's been hydrated and received antibiotic therapy. Based on prior cultures antibiotic therapy at this time is been utilized with daptomycin and levofloxacin has been added based on his prior cultures. Cultures now available in the Levaquin is transitioned to cefepime to cover the drug resistant E. coli. Daptomycin continues. He is feeling better his fevers have improved. Data from [facility] is required as to recent surgery, recent blood and wound cultures, and clarification of his antibiotic therapy. The gram-negative bacteremia is of concern and that he could have an infected PICC line. Trying to clear his bacteremia at this point in time. The patient has very significant IV access issues. If the bacteremia can be cleared he could then have a central line placed in the chest wall. Follow blood cultures are requested and are negative so far Pain control appears to be adequate Encouraged for her protein intake. Abdominal binder is requested The Coumadin coagulopathy has been improved. No acute bleeding is noted. He has been seen by hematology and will try to change him to Deloris hunt. Current Visit: Yes Status: Acute Code(s): A41.50 - GRAM-NEGATIVE SEPSIS, UNSPECIFIED SNOMED Code(s): 689452179 (2) Back pain Current Visit: No Status: Acute Code(s): M54.9 - DORSALGIA, UNSPECIFIED SNOMED Code(s): 549488438 (3) Fever Current Visit: No Status: Acute Priority: High Code(s): R50.9 - FEVER, UNSPECIFIED SNOMED Code(s): 745346485 (4) Hernia of abdominal wall Current Visit: Yes Status: Acute Code(s): K43.9 - VENTRAL HERNIA WITHOUT OBSTRUCTION OR GANGRENE SNOMED Code(s): 226529710
[2017-05-15] MEDS: HYDROmorphone 2 MG TAB PO PRN ×5 (04:03→20:21)
[2017-05-15] MEDS: METOCLOPRAMIDE 5 MG/ML 2 ML VIAL IVP SCH ×4 (04:52→23:26)
[2017-05-15] MEDS: LISINOPRIL 20 MG TAB PO SCH (08:12)
[2017-05-15] MEDS: APIXABAN 5 MG TAB PO SCH ×2 (08:12→20:22)
[2017-05-15] MEDS: PANTOPRAZOLE 40 MG TABLET PO SCH ×2 (08:12→17:35)
[2017-05-15] MEDS: CEFEPIME 2 GM in SODIUM CHLORIDE 0.9% 50 ML IVPB SCH ×3 (08:15→23:26)
[2017-05-15 15:06] VITALS: BMI 27.3
[2017-05-15] MEDS: DAPTOmycin IN 0.9% NACL 500 MG/10 ML SYRINGE IVP SCH (23:26)
[2017-05-16] MEDS: HYDROmorphone 2 MG TAB PO PRN ×6 (00:34→20:07)
[2017-05-16] MEDS: METOCLOPRAMIDE 5 MG/ML 2 ML VIAL IVP SCH ×3 (04:28→18:19)
[2017-05-16] MEDS: PANTOPRAZOLE 40 MG TABLET PO SCH ×2 (08:27→17:57)
[2017-05-16] MEDS: APIXABAN 5 MG TAB PO SCH ×2 (08:28→20:07)
[2017-05-16] MEDS: LISINOPRIL 20 MG TAB PO SCH (08:28)
[2017-05-16] MEDS: CEFEPIME 2 GM in SODIUM CHLORIDE 0.9% 50 ML IVPB SCH ×2 (09:12→18:19)
--- NOTE | 2017-05-16 13:52 | P.PN ---
Subjective 46-year-old gentleman admitted for sepsis secondary to central infection patient has a PICC line in the left arm patient's blood cultures are showing yeast now had enterococcus DE coli and a C serum and also hemolytic streptococci. Patient is on daptomycin was started on micafungin now is also on cefepime. PICC line will be removed today because of miguel in the blood cultures patient will receive his subclavian port, patient had multiple episodes of bacteremia in the past even endocarditis and is osteomyelitis of the back and patient recently underwent decompression surgery. Constitutional: Denied any fatigue denied any fever. Cardio vascular: denied any chest pain, palpitations Gastrointestinal denied any nausea vomiting Pulmonary: Denied any shortness of breath cough Neurologic denied any new focal deficits Objective - Vital Signs Vital signs: Vital Signs Temp 97.2 F L 05/16/17 08:34 Pulse 79 05/16/17 08:34 Resp 16 05/16/17 08:34 BP 140/80 05/16/17 08:34 Pulse Ox 98 05/16/17 08:34 Intake & Output 05/15/17 05/16/17 05/16/17 18:59 06:59 18:59 Intake Total 654 5651 Balance 654 5651 Weight 81.647 kg Intake: Intake, IV Titration 50 Amount Cefepime 2 gm In Sodium 50 Chloride 0.9% 50 ml @ 100 mls/hr IVPB Q8HR [facility] Rx# :[id number] Oral [id number] Other: Voiding Method Toilet Toilet Toilet Urinal # Voids 2 2 1 # Bowel Movements 1 - Exam PHYSICAL EXAMINATION: GENERAL: The patient is alert and oriented x3, not in any acute distress. Well developed, well nourished. HEENT: Pupils are round and equally reacting to light. EOMI. No scleral icterus. No conjunctival pallor. Normocephalic, atraumatic. No pharyngeal erythema. No thyromegaly. CARDIOVASCULAR: S1 and S2 present. No murmurs, rubs, or gallops. PULMONARY: Chest is clear to auscultation, no wheezing or crackles. ABDOMEN: Soft, nontender, nondistended, normoactive bowel sounds. No palpable organomegaly. MUSCULOSKELETAL: No joint swelling or deformity. EXTREMITIES: No cyanosis, clubbing, or pedal edema. Left arm PICC line appears to be infected NEUROLOGICAL: Gross neurological examination did not reveal any focal deficits. SKIN: No rashes. - Labs CBC & Chem 7: 05/14/17 07:02 05/14/17 07:02 Labs: Microbiology - Last 24 Hours (Table) 05/13/17 08:33 Blood Culture - Preliminary Blood No Growth after 72 hours 05/14/17 07:32 Blood Culture Gram Stain - Preliminary Blood Yeast species Blood Culture - Preliminary Yeast species 05/14/17 07:02 Blood Culture Gram Stain - Preliminary Blood Blood Culture - Preliminary Group D Enterococcus 05/14/17 07:32 Blood Culture - Final Blood 05/11/17 07:53 Blood Culture Gram Stain - Final Blood Blood Culture - Final Escherichia coli Alpha Hemolytic Streptococcus Enterococcus faecium Assessment and Plan Plan: -Sepsis and bacteremia polymicrobial and patient now has fungal bacteremia as well. Removal of PICC line today. Continue with daptomycin, cefepime and micafungin. -DVT in the past: Patient was started on new anticoagulation Coumadin is being discontinued -History of endocarditis and also mellitus of the back. -Hypertension -Gastroesophageal reflux disease
--- NOTE | 2017-05-16 15:54 | P.PCN ---
Date of Procedure: 05/16/17 Procedure(s) Performed: PREOPERATIVE DIAGNOSIS: Poor IV access, bacteremia POSTOPERATIVE DIAGNOSIS: Same PROCEDURE: Central line placement SURGEON: Rohini EBL: Minimal ANESTHESIA: Local COMPLICATIONS: None OPERATIVE PROCEDURE: Patient was placed on the stretcher table in the supine position. The chest and neck were prepped and draped in usual sterile fashion. The ultrasound probe was used to identify the location of the right internal jugular vein. The skin was localized with lidocaine. The Seldinger needle was advanced into the IJ under ultrasound guidance. The wire was advanced through the needle into the superior vena cava. The skin was incised using the scalpel. The dilator was utilized. The triple-lumen catheter was then threaded over the guidewire and the guidewire was removed. All 3 ports were flushed with saline. The catheter was sutured to the skin using a 3-0 nylon stitch in 3 locations. A sterile dressing was applied. DISPOSITION: Stable
--- NOTE | 2017-05-16 16:32 | XR ---
EXAMINATION TYPE: XR chest 1V confirm line [facility] DATE OF EXAM: 05/16/2017 COMPARISON: March 23, 2016 HISTORY: Line placement TECHNIQUE: Single frontal view of the chest is obtained. FINDINGS: There is no focal air space opacity, pleural effusion, or pneumothorax seen. The cardiac silhouette size is within normal limits. The osseous structures are intact. Linear strands of atele ctasis are noted left lung base. There is been central venous catheter insertion into the right inter nal jugular vein with the tip at the atrial caval junction. IMPRESSION: Central venous catheter placement with the tip at the atriocaval junction.
[2017-05-16] MEDS: MICAFUNGIN 100 MG in SODIUM CHLORIDE 0.9% 100 ML IVPB SCH (17:11)
--- NOTE | 2017-05-16 21:39 | P.PN ---
Subjective Progress Note Date: 05/16/17 Principal diagnosis: sepsis 46-year-old male well-known to the infectious disease service regarding his many hospitalizations. He's had multiple bouts of sepsis including PICC line related infections that were polymicrobial in nature. In the latter part of 2016 he was in the [facility] for potential abdominal wall reconstructive surgery. However because of the patient's many many infections he was deemed a very poor candidate even for biological mesh because of the risk of infection. Fortunately the abdominal wall is intact. He does have intermittent bouts of some discomfort. He then relates he started developing increasing amounts of back pain. He was seen by his surgeon at [facility]. 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 Then reports that he underwent a decompressive procedure isn't receiving intravenous antibiotic therapy with daptomycin and Tefloro. Patient chaz was doing relatively well until he had the sudden onset of increasing abdominal pain associated with nausea and emesis. He felt very poorly. At presentation he had evidence of high-grade fever some chills and appeared to have sepsis. With evidence of a positive blood culture for gram-negative bacilli E infectious diseases consultation has been requested. Data from the outside hospital has been requested. This is to clarify his blood cultures, surgical cultures, and current inpatient intravenous antibiotic therapy. The patient has significant difficulties with IV access. At this facility and at [place] there have been difficulties with placement of his PICC lines. Other than his chronic back pain is feeling better today. Fever and chills improved. Appetite is adequate. The laboratory is now related that in addition to the gram-positive and gram- negative bacterial infection there is evidence of yeast in the blood culture. Dr. Nova of surgery has been called and have requested temporary central line, within with removal of his PICC line which is a source of his sepsis. Once he has complete clearance of his sepsis than a Hinds catheter may be placed to complete his course of intravenous antibiotic therapy that will be required. Objective - Vital Signs Vital signs: Vital Signs Temp 97.2 F L 05/16/17 13:50 Pulse 73 05/16/17 13:50 Resp 16 05/16/17 13:50 BP 119/61 05/16/17 13:50 Pulse Ox 98 05/16/17 13:50 Intake & Output 05/16/17 05/16/17 05/17/17 06:59 18:59 06:59 Intake Total 5651 Balance 5651 Intake: Intake, IV Titration 50 Amount Cefepime 2 gm In Sodium 50 Chloride 0.9% 50 ml @ 100 mls/hr IVPB Q8HR [facility] Rx# :[id number] Oral 5601 Other: Voiding Method Toilet Toilet # Voids 2 1 - Exam 46-year-old male who is more comfortable at this time that admission. With his back pain is stabilized. HEENT: Anicteric conjunctiva are pink and moist nasal mucosa grossly intact without significant lesions, there is no thrush. Does have evidence of the injury to his eye. Neck: The neck is supple without significant lymphadenopathy or thyromegaly. Surgical scar is well-healed Lungs: Good bilateral air entry without significant crackles or wheezing. There is no significant bronchial sounds. There is no egophony or dullness. Heart: Regular with an audible S1 and S2 no S3 soft S4 2/6 murmur left sternal border without radiation. PMI was nondisplaced Abdomen: Positive bowel sounds soft and without significant tenderness. No palpable masses or organomegaly. There is benefits of the extensive prior surgical interventions but the abdominal wall is intact without opening or drainage. Extremities: Left upper extremity has a PICC line. The site is without purulence or tenderness. Right upper extremity reveals some swelling in the patient relates a recent deep venous thrombosis diagnosed at [place]. Confirmed here. Lower extremities have some trace edema. Spine shows evidence of the recent surgical interventions that are healing well some point tenderness but no bulge or purulence is seen. Neuro: Awake alert oriented to person place and time. There are no acute new gross focal sensory motor deficits. - Labs CBC & Chem 7: 05/14/17 07:02 05/14/17 07:02 Labs: Microbiology - Last 24 Hours (Table) 05/13/17 08:33 Blood Culture - Preliminary Blood No Growth after 72 hours 05/14/17 07:32 Blood Culture Gram Stain - Preliminary Blood Yeast species Blood Culture - Preliminary Yeast species 05/14/17 07:02 Blood Culture Gram Stain - Preliminary Blood Blood Culture - Preliminary Group D Enterococcus 05/14/17 07:32 Blood Culture - Final Blood Laboratory Results WBC 4.5 k/uL (3.8-10.6) 05/14/17 07:02 RBC 3.30 m/uL (4.30-5.90) L 05/14/17 07:02 Hgb 8.0 gm/dL (13.0-17.5) L 05/14/17 07:02 Hct 26.2 % (39.0-53.0) L 05/14/17 07:02 MCV 79.4 fL (80.0-100.0) L 05/14/17 07:02 MCH 24.2 pg (25.0-35.0) L 05/14/17 07:02 MCHC 30.4 g/dL (31.0-37.0) L 05/14/17 07:02 RDW 22.6 % (11.5-15.5) H 05/14/17 07:02 Plt Count 238 k/uL (150-450) 05/14/17 07:02 Neutrophils % 66 % 05/14/17 07:02 Lymphocytes % 14 % 05/14/17 07:02 Monocytes % 5 % 05/14/17 07:02 Eosinophils % 13 % 05/14/17 07:02 Basophils % 0 % 05/14/17 07:02 Neutrophils # 3.0 k/uL (1.3-7.7) 05/14/17 07:02 Lymphocytes # 0.7 k/uL (1.0-4.8) L 05/14/17 07:02 Monocytes # 0.2 k/uL (0-1.0) 05/14/17 07:02 Eosinophils # 0.6 k/uL (0-0.7) 05/14/17 07:02 Basophils # 0.0 k/uL (0-0.2) 05/14/17 07:02 Manual Slide Review Performed 05/10/17 22:40 Hypochromasia Marked 05/14/17 07:02 Poikilocytosis Slight 05/14/17 07:02 Anisocytosis Moderate 05/14/17 07:02 Microcytosis Moderate 05/14/17 07:02 PT 11.2 sec (9.0-12.0) 05/14/17 07:02 INR 1.2 (<1.2) H 05/14/17 07:02 APTT 90.4 sec (22.0-30.0) H 05/10/17 22:40 Sodium 135 mmol/L (137-145) L 05/14/17 07:02 Potassium 3.9 mmol/L (3.5-5.1) 05/14/17 07:02 Chloride 100 mmol/L (98-107) 05/14/17 07:02 Carbon Dioxide 23 mmol/L (22-30) 05/14/17 07:02 Anion Gap 12 mmol/L 05/14/17 07:02 BUN 6 mg/dL (9-20) L 05/14/17 07:02 Creatinine 0.56 mg/dL (0.66-1.25) L 05/14/17 07:02 Est GFR (MDRD) Af Amer >60 (>60 ml/min/1.73 sqM) 05/14/17 07:02 Est GFR (MDRD) Non-Af >60 (>60 ml/min/1.73 sqM) 05/14/17 07:02 Glucose 187 mg/dL (74-99) H 05/14/17 07:02 Calcium 8.9 mg/dL (8.4-10.2) 05/14/17 07:02 Phosphorus 3.8 mg/dL (2.5-4.5) 05/10/17 22:40 Magnesium 1.8 mg/dL (1.6-2.3) 05/14/17 07:02 Total Bilirubin 0.3 mg/dL (0.2-1.3) 05/11/17 09:16 AST 14 U/L (17-59) L 05/11/17 09:16 ALT 26 U/L (21-72) 05/11/17 09:16 Alkaline Phosphatase 184 U/L (38-126) H 05/11/17 09:16 Total Creatine Kinase <20 U/L (55-170) L 05/10/17 22:40 CK-MB (CK-2) 0.5 ng/mL (0.0-2.4) 05/10/17 22:40 CK-MB (CK-2) Rel Index 05/10/17 22:40 Troponin I <0.012 ng/mL (0.000-0.034) 05/10/17 22:40 Total Protein 7.4 g/dL (6.3-8.2) 05/11/17 09:16 Albumin 3.2 g/dL (3.5-5.0) L 05/11/17 09:16 Microbiology 05/13/17 08:33 Blood Blood Culture - Preliminary No Growth after 72 hours 05/14/17 07:32 Blood Blood Culture Gram Stain - Preliminary Yeast species 05/14/17 07:32 Blood Blood Culture - Preliminary Yeast species 05/14/17 07:02 Blood Blood Culture Gram Stain - Preliminary 05/14/17 07:02 Blood Blood Culture - Preliminary Group D Enterococcus 05/14/17 07:32 Blood Blood Culture - Final 05/11/17 07:53 Blood Blood Culture Gram Stain - Final 05/11/17 07:53 Blood Blood Culture - Final Escherichia coli Alpha Hemolytic Streptococcus Enterococcus faecium 05/14/17 07:02 Blood Blood Culture - Final 05/12/17 10:45 Urine,Clean Catch Urine Culture - Final 05/12/17 07:45 Blood Blood Culture - Final Assessment and Plan (1) Gram negative sepsis Narrative/Plan: 46 year male who is a very complicated and convoluted past medical history presents to the emergency center for further evaluation. He was having nausea and emesis and acute abdominal pain. This is now improved since he's been hydrated and received antibiotic therapy. Based on prior cultures antibiotic therapy at this time is been utilized with daptomycin and levofloxacin has been added based on his prior cultures. Cultures now available in the Levaquin is transitioned to cefepime to cover the drug resistant E. coli. Daptomycin continues. He is feeling better his fevers have improved. Data from [facility] is required as to recent surgery, recent blood and wound cultures, and clarification of his antibiotic therapy. As noted blood cultures are with Enterococcus faecalis, E. coli and the cefepime and daptomycin were being utilized. However no laboratories: The positive blood culture with yeast. With this the PICC line can no longer be left in place. A consequently we have asked for surgery to place a triple- lumen catheter which is being done. PICC line to be removed. Once his bacteremia is cleared a more permanent IV access can then be placed. Patient is responding to therapy with improvement of fever or leukocytosis. Continues to have his ongoing back pain. Pain control appears to be adequate Encouraged for her protein intake. Abdominal binder is requested The Coumadin coagulopathy has been improved. No acute bleeding is noted. He has been seen by hematology and [facility] Current Visit: Yes Status: Acute Code(s): A41.50 - GRAM-NEGATIVE SEPSIS, UNSPECIFIED SNOMED Code(s): 748620674 (2) Back pain Current Visit: No Status: Acute Code(s): M54.9 - DORSALGIA, UNSPECIFIED SNOMED Code(s): 190931382 (3) Fever Current Visit: No Status: Acute Priority: High Code(s): R50.9 - FEVER, UNSPECIFIED SNOMED Code(s): 398812790 (4) Hernia of abdominal wall Current Visit: Yes Status: Acute Code(s): K43.9 - VENTRAL HERNIA WITHOUT OBSTRUCTION OR GANGRENE SNOMED Code(s): 434172700
[2017-05-16] MEDS: DAPTOmycin IN 0.9% NACL 500 MG/10 ML SYRINGE IVP SCH (22:38)
[2017-05-17] MEDS: METOCLOPRAMIDE 5 MG/ML 2 ML VIAL IVP SCH ×5 (00:20→23:13)
[2017-05-17] MEDS: CEFEPIME 2 GM in SODIUM CHLORIDE 0.9% 50 ML IVPB SCH ×4 (00:20→23:13)
[2017-05-17] MEDS: HYDROmorphone 2 MG TAB PO PRN ×4 (00:35→12:25)
[2017-05-17] MEDS: MICAFUNGIN 100 MG in SODIUM CHLORIDE 0.9% 100 ML IVPB SCH (08:32)
[2017-05-17] MEDS: PANTOPRAZOLE 40 MG TABLET PO SCH ×2 (08:33→17:01)
[2017-05-17] MEDS: LISINOPRIL 20 MG TAB PO SCH (08:33)
[2017-05-17] MEDS: APIXABAN 5 MG TAB PO SCH ×2 (08:33→20:25)
[2017-05-17 10:17] LABS: Anion Gap 10 mmol/L; Blood Urea Nitrogen 8 mg/dL (9-20); Calcium 9.5 mg/dL (8.4-10.2); Carbon Dioxide 25 mmol/L (22-30); Chloride 102 mmol/L (98-107); Glucose 187 mg/dL (74-99); Potassium 3.6 mmol/L (3.5-5.1); Sodium 137 mmol/L (137-145)
[2017-05-17 10:23] LABS: Anisocytosis Moderate; HCT 29.7 % (39.0-53.0); HGB 8.7 gm/dL (13.0-17.5); Hypochromasia Marked; MCH 23.9 pg (25.0-35.0); MCHC 29.3 g/dL (31.0-37.0); MCV 81.7 fL (80.0-100.0); Mean Platelet Volume 6.5; Microcytosis Slight; Platelet Count 365 k/uL (150-450); Poikilocytosis Slight; RBC 3.64 m/uL (4.30-5.90); RDW 20.4 % (11.5-15.5); WBC 7.1 k/uL (3.8-10.6)
--- NOTE | 2017-05-17 10:37 | P.PN ---
Subjective 46-year-old gentleman admitted for sepsis secondary to central infection patient has a PICC line in the left arm patient's blood cultures are showing yeast now had enterococcus DE coli and a C serum and also hemolytic streptococci. Patient is on daptomycin was started on micafungin now is also on cefepime. PICC line will be removed today because of alecia in the blood cultures patient will receive his subclavian port, patient had multiple episodes of bacteremia in the past even endocarditis and is osteomyelitis of the back and patient recently underwent decompression surgery. 05/17/2017 Patient had a subclavian line line as there is no peripheral access available. A central line Tod the patient is otherwise clinically doing well switching his oral Dilaudid to IV Dilaudid because of nonavailability of oral Dilaudid with pharmacy Constitutional: Denied any fatigue denied any fever. Cardio vascular: denied any chest pain, palpitations Gastrointestinal denied any nausea vomiting Pulmonary: Denied any shortness of breath cough Neurologic denied any new focal deficits Objective - Vital Signs Vital signs: Vital Signs Temp 97.1 F L 05/17/17 06:40 Pulse 77 05/17/17 06:40 Resp 16 05/17/17 06:41 BP 154/76 05/17/17 06:40 Pulse Ox 98 05/17/17 06:40 Intake & Output 05/16/17 05/17/17 05/17/17 18:59 06:59 18:59 Intake Total 220 480 Balance 220 480 Intake: Oral 220 480 Other: Voiding Method Toilet Toilet # Voids 1 3 - Exam PHYSICAL EXAMINATION: GENERAL: The patient is alert and oriented x3, not in any acute distress. Well developed, well nourished. HEENT: Pupils are round and equally reacting to light. EOMI. No scleral icterus. No conjunctival pallor. Normocephalic, atraumatic. No pharyngeal erythema. No thyromegaly. CARDIOVASCULAR: S1 and S2 present. No murmurs, rubs, or gallops. PULMONARY: Chest is clear to auscultation, no wheezing or crackles. ABDOMEN: Soft, nontender, nondistended, normoactive bowel sounds. No palpable organomegaly. MUSCULOSKELETAL: No joint swelling or deformity. EXTREMITIES: No cyanosis, clubbing, or pedal edema. Left arm PICC line was removed and patient now has a right subclavian line NEUROLOGICAL: Gross neurological examination did not reveal any focal deficits. SKIN: No rashes. - Labs CBC & Chem 7: 05/17/17 09:51 05/17/17 09:51 Labs: Abnormal Lab Results - Last 24 Hours (Table) 05/17/17 05/17/17 Range/Units 09:51 09:51 RBC 3.64 L (4.30-5.90) m/uL Hgb 8.7 L (13.0-17.5) gm/dL Hct 29.7 L (39.0-53.0) % MCH 23.9 L (25.0-35.0) pg MCHC 29.3 L (31.0-37.0) g/dL RDW 20.4 H (11.5-15.5) % BUN 8 L (9-20) mg/dL Creatinine 0.49 L (0.66-1.25) mg/dL Glucose 187 H (74-99) mg/dL Microbiology - Last 24 Hours (Table) 05/14/17 07:32 Blood Culture Gram Stain - Final Blood Yeast species Blood Culture - Final Alecia albicans 05/14/17 07:02 Blood Culture Gram Stain - Final Blood Blood Culture - Final Enterococcus faecium 05/16/17 13:18 Catheter Tip Culture - Preliminary Picc Line 05/13/17 08:33 Blood Culture - Preliminary Blood No Growth after 72 hours Assessment and Plan Plan: -Sepsis and bacteremia polymicrobial and patient now has fungal bacteremia as well. Removal of PICC line today. Continue with daptomycin, cefepime and micafungin. Previous central line catheter was removed was sent for cultures -DVT in the past: Patient was started on new anticoagulation Coumadin is being discontinued -History of endocarditis and also mellitus of the back. -Hypertension -Gastroesophageal reflux disease
--- NOTE | 2017-05-17 12:12 | P.PN ---
Progress Note - Text Progress Note Date: 05/17/17 Patient reevaluated after central line placement yesterday. He has no complaints. Minimal discomfort. Neck without hematoma. We'll sign off at this point.
[2017-05-17] MEDS: HYDROmorphone 2 MG/ML 1 ML SYRINGE IVP PRN ×5 (16:50→23:57)
[2017-05-17] MEDS: DAPTOmycin IN 0.9% NACL 500 MG/10 ML SYRINGE IVP SCH (22:00)
[2017-05-18] MEDS: HYDROmorphone 2 MG/ML 1 ML SYRINGE IVP PRN ×3 (01:55→05:50)
[2017-05-18] MEDS: METOCLOPRAMIDE 5 MG/ML 2 ML VIAL IVP SCH ×4 (05:27→23:24)
[2017-05-18] MEDS: CEFEPIME 2 GM in SODIUM CHLORIDE 0.9% 50 ML IVPB SCH ×3 (07:50→23:23)
[2017-05-18] MEDS: PANTOPRAZOLE 40 MG TABLET PO SCH ×2 (07:50→17:24)
[2017-05-18] MEDS: HYDROmorphone 2 MG TAB PO PRN ×5 (07:50→23:24)
[2017-05-18] MEDS: LISINOPRIL 20 MG TAB PO SCH (08:41)
[2017-05-18] MEDS: APIXABAN 5 MG TAB PO SCH ×2 (08:41→19:26)
[2017-05-18] MEDS: MICAFUNGIN 100 MG in SODIUM CHLORIDE 0.9% 100 ML IVPB SCH (08:45)
--- NOTE | 2017-05-18 10:54 | P.PN ---
Subjective 46-year-old gentleman admitted for sepsis secondary to central infection patient has a PICC line in the left arm patient's blood cultures are showing yeast now had enterococcus DE coli and a C serum and also hemolytic streptococci. Patient is on daptomycin was started on micafungin now is also on cefepime. PICC line will be removed today because of miguel in the blood cultures patient will receive his subclavian port, patient had multiple episodes of bacteremia in the past even endocarditis and is osteomyelitis of the back and patient recently underwent decompression surgery. 05/17/2017 Patient had a subclavian line line as there is no peripheral access available. A central line Tod the patient is otherwise clinically doing well switching his oral Dilaudid to IV Dilaudid because of nonavailability of oral Dilaudid with pharmacy May 18 2017 Clinically stable awaiting clearance of blood cultures Constitutional: Denied any fatigue denied any fever. Cardio vascular: denied any chest pain, palpitations Gastrointestinal denied any nausea vomiting Pulmonary: Denied any shortness of breath cough Neurologic denied any new focal deficits Objective - Vital Signs Vital signs: Vital Signs Temp 97.4 F L 05/18/17 07:00 Pulse 83 05/18/17 07:00 Resp 16 05/18/17 07:00 BP 154/80 05/18/17 07:00 Pulse Ox 96 05/18/17 07:00 Intake & Output 05/17/17 05/18/17 05/18/17 18:59 06:59 18:59 Intake Total 480 240 Balance 480 240 Intake: Oral 480 240 Other: Voiding Method Toilet # Voids 1 3 - Exam PHYSICAL EXAMINATION: GENERAL: The patient is alert and oriented x3, not in any acute distress. Well developed, well nourished. HEENT: Pupils are round and equally reacting to light. EOMI. No scleral icterus. No conjunctival pallor. Normocephalic, atraumatic. No pharyngeal erythema. No thyromegaly. CARDIOVASCULAR: S1 and S2 present. No murmurs, rubs, or gallops. PULMONARY: Chest is clear to auscultation, no wheezing or crackles. ABDOMEN: Soft, nontender, nondistended, normoactive bowel sounds. No palpable organomegaly. MUSCULOSKELETAL: No joint swelling or deformity. EXTREMITIES: No cyanosis, clubbing, or pedal edema. Left arm PICC line was removed and patient now has a right subclavian line NEUROLOGICAL: Gross neurological examination did not reveal any focal deficits. SKIN: No rashes. - Labs CBC & Chem 7: 05/17/17 09:51 05/17/17 09:51 Labs: Microbiology - Last 24 Hours (Table) 05/16/17 13:18 Catheter Tip Culture - Preliminary Picc Line 05/14/17 07:02 Blood Culture Gram Stain - Final Blood Blood Culture - Final Enterococcus faecium 05/13/17 08:33 Blood Culture - Preliminary Blood No Growth after 96 hours Assessment and Plan Plan: -Sepsis and bacteremia polymicrobial and patient now has fungal bacteremia as well. PICC line was removed couple days ago Continue with daptomycin, cefepime and micafungin. Previous central line catheter was removed was sent for cultures and patient has a temporary line. We need to verify with infectious disease regarding timing for more permanent subclavian line so patient is on anti-correlation which need to be held 24 hours before this procedure -DVT in the past: Patient was started on new anticoagulation Coumadin was discontinued -History of endocarditis and osteomyelitis of the back. -Hypertension -Gastroesophageal reflux disease
--- NOTE | 2017-05-18 20:53 | P.PN ---
Subjective Progress Note Date: 05/18/17 Principal diagnosis: sepsis 46-year-old male well-known to the infectious disease service regarding his many hospitalizations. He's had multiple bouts of sepsis including PICC line related infections that were polymicrobial in nature. In the latter part of 2016 he was in the [facility] for potential abdominal wall reconstructive surgery. However because of the patient's many many infections he was deemed a very poor candidate even for biological mesh because of the risk of infection. Fortunately the abdominal wall is intact. He does have intermittent bouts of some discomfort. He then relates he started developing increasing amounts of back pain. He was seen by his surgeon at [facility]. 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 Then reports that he underwent a decompressive procedure isn't receiving intravenous antibiotic therapy with daptomycin and Tefloro. Patient chaz was doing relatively well until he had the sudden onset of increasing abdominal pain associated with nausea and emesis. He felt very poorly. At presentation he had evidence of high-grade fever some chills and appeared to have sepsis. With evidence of a positive blood culture for gram-negative bacilli E infectious diseases consultation has been requested. Data from the outside hospital has been requested. This is to clarify his blood cultures, surgical cultures, and current inpatient intravenous antibiotic therapy. The patient has significant difficulties with IV access. At this facility and at [place] there have been difficulties with placement of his PICC lines. Other than his chronic back pain is feeling better today. Fever and chills improved. Appetite is adequate. The laboratory is now related that in addition to the gram-positive and gram- negative bacterial infection there is evidence of yeast in the blood culture. Dr. Nova of surgery has been called and have placed temporary central line, with removal of his PICC line which is a source of his sepsis. Once he has complete clearance of his sepsis than a Hinds catheter may be placed to complete his course of intravenous antibiotic therapy that will be required. Objective - Vital Signs Vital signs: Vital Signs Temp 98.1 F 05/18/17 20:35 Pulse 91 05/18/17 20:35 Resp 16 05/18/17 20:35 BP 119/71 05/18/17 20:35 Pulse Ox 96 05/18/17 15:00 Intake & Output 05/18/17 05/18/17 05/19/17 06:59 18:59 06:59 Intake Total 240 500 Balance 240 500 Intake: Oral 240 500 Other: Voiding Method Toilet # Voids 3 3 - Exam 46-year-old male who is more comfortable at this time that admission. With his back pain is stabilized. HEENT: Anicteric conjunctiva are pink and moist nasal mucosa grossly intact without significant lesions, there is no thrush. Does have evidence of the injury to his eye. Neck: The neck is supple without significant lymphadenopathy or thyromegaly. Surgical scar is well-healed the triple-lumen right IJ intact. Lungs: Good bilateral air entry without significant crackles or wheezing. There is no significant bronchial sounds. There is no egophony or dullness. Heart: Regular with an audible S1 and S2 no S3 soft S4 2/6 murmur left sternal border without radiation. PMI was nondisplaced Abdomen: Positive bowel sounds soft and without significant tenderness. No palpable masses or organomegaly. There is benefits of the extensive prior surgical interventions but the abdominal wall is intact without opening or drainage. Extremities: Left upper extremity prior PICC line site is without expressible purulence, no significant tenderness or ascending erythema. Right upper extremity reveals some swelling in the patient relates a recent deep venous thrombosis diagnosed at [place]. Confirmed here. Lower extremities have some trace edema. Spine shows evidence of the recent surgical interventions that are healing well some point tenderness but no bulge or purulence is seen. Neuro: Awake alert oriented to person place and time. There are no acute new gross focal sensory motor deficits. - Labs CBC & Chem 7: 05/17/17 09:51 05/17/17 09:51 Labs: Microbiology - Last 24 Hours (Table) 05/13/17 08:33 Blood Culture - Preliminary Blood No Growth after 120 hours 05/16/17 13:18 Catheter Tip Culture - Preliminary Picc Line Laboratory Results WBC 7.1 k/uL (3.8-10.6) 05/17/17 09:51 RBC 3.64 m/uL (4.30-5.90) L 05/17/17 09:51 Hgb 8.7 gm/dL (13.0-17.5) L 05/17/17 09:51 Hct 29.7 % (39.0-53.0) L 05/17/17 09:51 MCV 81.7 fL (80.0-100.0) 05/17/17 09:51 MCH 23.9 pg (25.0-35.0) L 05/17/17 09:51 MCHC 29.3 g/dL (31.0-37.0) L 05/17/17 09:51 RDW 20.4 % (11.5-15.5) H 05/17/17 09:51 Plt Count 365 k/uL (150-450) 05/17/17 09:51 Neutrophils % 66 % 05/14/17 07:02 Lymphocytes % 14 % 05/14/17 07:02 Monocytes % 5 % 05/14/17 07:02 Eosinophils % 13 % 05/14/17 07:02 Basophils % 0 % 05/14/17 07:02 Neutrophils # 3.0 k/uL (1.3-7.7) 05/14/17 07:02 Lymphocytes # 0.7 k/uL (1.0-4.8) L 05/14/17 07:02 Monocytes # 0.2 k/uL (0-1.0) 05/14/17 07:02 Eosinophils # 0.6 k/uL (0-0.7) 05/14/17 07:02 Basophils # 0.0 k/uL (0-0.2) 05/14/17 07:02 Manual Slide Review Performed 05/10/17 22:40 Hypochromasia Marked 05/17/17 09:51 Poikilocytosis Slight 05/17/17 09:51 Anisocytosis Moderate 05/17/17 09:51 Microcytosis Slight 05/17/17 09:51 PT 11.2 sec (9.0-12.0) 05/14/17 07:02 INR 1.2 (<1.2) H 05/14/17 07:02 APTT 90.4 sec (22.0-30.0) H 05/10/17 22:40 Sodium 137 mmol/L (137-145) 05/17/17 09:51 Potassium 3.6 mmol/L (3.5-5.1) 05/17/17 09:51 Chloride 102 mmol/L (98-107) 05/17/17 09:51 Carbon Dioxide 25 mmol/L (22-30) 05/17/17 09:51 Anion Gap 10 mmol/L 05/17/17 09:51 BUN 8 mg/dL (9-20) L 05/17/17 09:51 Creatinine 0.49 mg/dL (0.66-1.25) L 05/17/17 09:51 Est GFR (MDRD) Af Amer >60 (>60 ml/min/1.73 sqM) 05/17/17 09:51 Est GFR (MDRD) Non-Af >60 (>60 ml/min/1.73 sqM) 05/17/17 09:51 Glucose 187 mg/dL (74-99) H 05/17/17 09:51 Calcium 9.5 mg/dL (8.4-10.2) 05/17/17 09:51 Phosphorus 3.8 mg/dL (2.5-4.5) 05/10/17 22:40 Magnesium 1.8 mg/dL (1.6-2.3) 05/14/17 07:02 Total Bilirubin 0.3 mg/dL (0.2-1.3) 05/11/17 09:16 AST 14 U/L (17-59) L 05/11/17 09:16 ALT 26 U/L (21-72) 05/11/17 09:16 Alkaline Phosphatase 184 U/L (38-126) H 05/11/17 09:16 Total Creatine Kinase <20 U/L (55-170) L 05/10/17 22:40 CK-MB (CK-2) 0.5 ng/mL (0.0-2.4) 05/10/17 22:40 CK-MB (CK-2) Rel Index 05/10/17 22:40 Troponin I <0.012 ng/mL (0.000-0.034) 05/10/17 22:40 Total Protein 7.4 g/dL (6.3-8.2) 05/11/17 09:16 Albumin 3.2 g/dL (3.5-5.0) L 05/11/17 09:16 Microbiology 05/13/17 08:33 Blood Blood Culture - Preliminary No Growth after 120 hours 05/16/17 13:18 Picc Line Catheter Tip Culture - Preliminary 05/14/17 07:02 Blood Blood Culture Gram Stain - Final 05/14/17 07:02 Blood Blood Culture - Final Enterococcus faecium 05/14/17 07:32 Blood Blood Culture Gram Stain - Final Yeast species 05/14/17 07:32 Blood Blood Culture - Final Alecia albicans 05/14/17 07:32 Blood Blood Culture - Final 05/11/17 07:53 Blood Blood Culture Gram Stain - Final 05/11/17 07:53 Blood Blood Culture - Final Escherichia coli Alpha Hemolytic Streptococcus Enterococcus faecium 05/14/17 07:02 Blood Blood Culture - Final 05/12/17 10:45 Urine,Clean Catch Urine Culture - Final 05/12/17 07:45 Blood Blood Culture - Final Assessment and Plan (1) Gram negative sepsis Narrative/Plan: 46 year male who is a very complicated and convoluted past medical history presents to the emergency center for further evaluation. He was having nausea and emesis and acute abdominal pain. This is now improved since he's been hydrated and received antibiotic therapy. Based on prior cultures antibiotic therapy at this time is been utilized with daptomycin and levofloxacin has been added based on his prior cultures. Cultures now available in the Levaquin is transitioned to cefepime to cover the drug resistant E. coli. Daptomycin continues. He is feeling better his fevers have improved. Data from [facility] is required as to recent surgery, recent blood and wound cultures, and clarification of his antibiotic therapy. As noted blood cultures are with Enterococcus faecalis, E. coli and the cefepime and daptomycin were being utilized. However no laboratories: The positive blood culture with yeast. PICC line removed and right IJ central line has been placed. Once his bacteremia is cleared a more permanent IV access can then be placed. Patient is responding to therapy with improvement of fever or leukocytosis. Continues to have his ongoing back pain. Patient's had a marked improvement since removal of his PICC line. Pain control appears to be adequate Encouraged for her protein intake. Abdominal binder in place The Coumadin coagulopathy has been improved. No acute bleeding is noted. He has been seen by hematology and will try to change him to [facility]. Current Visit: Yes Status: Acute Code(s): A41.50 - GRAM-NEGATIVE SEPSIS, UNSPECIFIED SNOMED Code(s): 295997715 (2) Back pain Current Visit: No Status: Acute Code(s): M54.9 - DORSALGIA, UNSPECIFIED SNOMED Code(s): 901297002 (3) Fever Current Visit: No Status: Acute Priority: High Code(s): R50.9 - FEVER, UNSPECIFIED SNOMED Code(s): 583218492 (4) Hernia of abdominal wall Current Visit: Yes Status: Acute Code(s): K43.9 - VENTRAL HERNIA WITHOUT OBSTRUCTION OR GANGRENE SNOMED Code(s): 094706561
[2017-05-18] MEDS: DAPTOmycin IN 0.9% NACL 500 MG/10 ML SYRINGE IVP SCH (23:24)
[2017-05-19] MEDS: HYDROmorphone 2 MG TAB PO PRN ×5 (03:37→19:38)
[2017-05-19] MEDS: METOCLOPRAMIDE 5 MG/ML 2 ML VIAL IVP SCH ×3 (05:41→17:59)
[2017-05-19] MEDS: CEFEPIME 2 GM in SODIUM CHLORIDE 0.9% 50 ML IVPB SCH ×2 (07:46→15:33)
[2017-05-19] MEDS: PANTOPRAZOLE 40 MG TABLET PO SCH ×2 (07:47→17:59)
[2017-05-19] MEDS: LISINOPRIL 20 MG TAB PO SCH (07:47)
[2017-05-19] MEDS: APIXABAN 5 MG TAB PO SCH ×2 (07:47→19:39)
[2017-05-19] MEDS: MICAFUNGIN 100 MG in SODIUM CHLORIDE 0.9% 100 ML IVPB SCH (09:11)
--- NOTE | 2017-05-19 10:51 | P.PN ---
Subjective Patient resting in bed .. States back pain and baseline. Patient also complains of discomfort to ankles and feet from the. Patient continues under care of Dr. Amaral infectious disease Objective - Vital Signs Vital signs: Vital Signs Temp 97.6 F 05/19/17 07:00 Pulse 92 05/19/17 07:00 Resp 16 05/19/17 07:00 BP 130/70 05/19/17 07:00 Pulse Ox 97 05/19/17 07:00 Intake & Output 05/18/17 05/19/17 05/19/17 18:59 06:59 18:59 Intake Total 500 590 Balance 500 590 Intake: Oral 500 590 Other: Voiding Method Toilet Toilet # Voids 3 3 - Constitutional General appearance: Present: average body habitus, mild distress - EENT Eyes: Present: abnormal pupil Ears: bilateral: normal - Neck Neck: Present: normal ROM - Respiratory Respiratory: bilateral: CTA - Cardiovascular Rhythm: regular - Gastrointestinal General gastrointestinal: Present: soft - Integumentary Integumentary: Present: normal - Neurologic Neurologic: Present: CNII-XII intact - Musculoskeletal Musculoskeletal: Present: generalized weakness - Psychiatric Psychiatric: Present: A&O x's 3, appropriate affect, intact judgment & insight - Labs CBC & Chem 7: 05/17/17 09:51 05/17/17 09:51 Labs: Microbiology - Last 24 Hours (Table) 05/16/17 13:18 Catheter Tip Culture - Final Picc Line 05/13/17 08:33 Blood Culture - Preliminary Blood No Growth after 120 hours - Imaging and Cardiology Chest x-ray: report reviewed Assessment and Plan Plan: Assessment Abdominal pain with vomiting and diarrhea resolved Pneumonia Sepsis secondary to PICC line Coumadin coagulopathy Anemia microcytic Hypokalemia corrected DVT right arm had PICC line at [facility] GERD Degenerative joint disease 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 Amaral Treated with Maxipescott daptomycin And antifungal
--- NOTE | 2017-05-19 21:56 | P.PN ---
Subjective Progress Note Date: 05/19/17 Principal diagnosis: sepsis 46-year-old male well-known to the infectious disease service regarding his many hospitalizations. He's had multiple bouts of sepsis including PICC line related infections that were polymicrobial in nature. In the latter part of 2016 he was in the [facility] for potential abdominal wall reconstructive surgery. However because of the patient's many many infections he was deemed a very poor candidate even for biological mesh because of the risk of infection. Fortunately the abdominal wall is intact. He does have intermittent bouts of some discomfort. He then relates he started developing increasing amounts of back pain. He was seen by his surgeon at [facility]. 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 Then reports that he underwent a decompressive procedure isn't receiving intravenous antibiotic therapy with daptomycin and Tefloro. Patient chaz was doing relatively well until he had the sudden onset of increasing abdominal pain associated with nausea and emesis. He felt very poorly. At presentation he had evidence of high-grade fever some chills and appeared to have sepsis. With evidence of a positive blood culture for gram-negative bacilli E infectious diseases consultation has been requested. Data from the outside hospital has been requested. This is to clarify his blood cultures, surgical cultures, and current inpatient intravenous antibiotic therapy. The patient has significant difficulties with IV access. At this facility and at [place] there have been difficulties with placement of his PICC lines. Other than his chronic back pain is stable. Fever and chills improved. Appetite is adequate. The laboratory is now related that in addition to the gram-positive and gram- negative bacterial infection there is evidence of yeast in the blood culture. Dr. Nova of surgery has been called and have placed temporary central line, with removal of his PICC line which is a source of his sepsis. Once he has complete clearance of his sepsis than a Hinds catheter may be placed to complete his course of intravenous antibiotic therapy that will be required. Follow up blood cultures again positive. Objective - Vital Signs Vital signs: Vital Signs Temp 97.5 F L 05/19/17 19:33 Pulse 91 05/19/17 19:33 Resp 16 05/19/17 19:33 BP 119/69 05/19/17 19:33 Pulse Ox 93 L 05/19/17 19:33 Intake & Output 01/16/18 01/16/18 01/17/18 06:59 18:59 06:59 Intake Total 590 Balance 590 Intake: Oral 590 Other: Voiding Method Toilet Toilet # Voids 3 3 - Exam 46-year-old male who is more comfortable at this time that admission. With his back pain is stabilized. HEENT: Anicteric conjunctiva are pink and moist nasal mucosa grossly intact without significant lesions, there is no thrush. Does have evidence of the injury to his eye. Neck: The neck is supple without significant lymphadenopathy or thyromegaly. Surgical scar is well-healed the triple-lumen right IJ intact. Lungs: Good bilateral air entry without significant crackles or wheezing. There is no significant bronchial sounds. There is no egophony or dullness. Heart: Regular with an audible S1 and S2 no S3 soft S4 2/6 murmur left sternal border without radiation. PMI was nondisplaced Abdomen: Positive bowel sounds soft and without significant tenderness. No palpable masses or organomegaly. There is benefits of the extensive prior surgical interventions but the abdominal wall is intact without opening or drainage. Extremities: Left upper extremity prior PICC line site is without expressible purulence, no significant tenderness or ascending erythema. Right upper extremity reveals some swelling in the patient relates a recent deep venous thrombosis diagnosed at [place]. Confirmed here. Lower extremities have some trace edema. Spine shows evidence of the recent surgical interventions that are healing well some point tenderness but no bulge or purulence is seen. Neuro: Awake alert oriented to person place and time. There are no acute new gross focal sensory motor deficits. - Labs CBC & Chem 7: 05/17/17 09:51 05/17/17 09:51 Labs: Microbiology - Last 24 Hours (Table) 05/19/17 00:15 Blood Culture Gram Stain - Preliminary Blood Blood Culture - Preliminary 05/19/17 00:15 Blood Culture - Final Blood 05/13/17 08:33 Blood Culture - Final Blood No Growth after 144 hours 05/16/17 13:18 Catheter Tip Culture - Final Picc Line Laboratory Results WBC 7.1 k/uL (3.8-10.6) 05/17/17 09:51 RBC 3.64 m/uL (4.30-5.90) L 05/17/17 09:51 Hgb 8.7 gm/dL (13.0-17.5) L 05/17/17 09:51 Hct 29.7 % (39.0-53.0) L 05/17/17 09:51 MCV 81.7 fL (80.0-100.0) 05/17/17 09:51 MCH 23.9 pg (25.0-35.0) L 05/17/17 09:51 MCHC 29.3 g/dL (31.0-37.0) L 05/17/17 09:51 RDW 20.4 % (11.5-15.5) H 05/17/17 09:51 Plt Count 365 k/uL (150-450) 05/17/17 09:51 Neutrophils % 66 % 05/14/17 07:02 Lymphocytes % 14 % 05/14/17 07:02 Monocytes % 5 % 05/14/17 07:02 Eosinophils % 13 % 05/14/17 07:02 Basophils % 0 % 05/14/17 07:02 Neutrophils # 3.0 k/uL (1.3-7.7) 05/14/17 07:02 Lymphocytes # 0.7 k/uL (1.0-4.8) L 05/14/17 07:02 Monocytes # 0.2 k/uL (0-1.0) 05/14/17 07:02 Eosinophils # 0.6 k/uL (0-0.7) 05/14/17 07:02 Basophils # 0.0 k/uL (0-0.2) 05/14/17 07:02 Manual Slide Review Performed 05/10/17 22:40 Hypochromasia Marked 05/17/17 09:51 Poikilocytosis Slight 05/17/17 09:51 Anisocytosis Moderate 05/17/17 09:51 Microcytosis Slight 05/17/17 09:51 PT 11.2 sec (9.0-12.0) 05/14/17 07:02 INR 1.2 (<1.2) H 05/14/17 07:02 APTT 90.4 sec (22.0-30.0) H 05/10/17 22:40 Sodium 137 mmol/L (137-145) 05/17/17 09:51 Potassium 3.6 mmol/L (3.5-5.1) 05/17/17 09:51 Chloride 102 mmol/L (98-107) 05/17/17 09:51 Carbon Dioxide 25 mmol/L (22-30) 05/17/17 09:51 Anion Gap 10 mmol/L 05/17/17 09:51 BUN 8 mg/dL (9-20) L 05/17/17 09:51 Creatinine 0.49 mg/dL (0.66-1.25) L 05/17/17 09:51 Est GFR (MDRD) Af Amer >60 (>60 ml/min/1.73 sqM) 05/17/17 09:51 Est GFR (MDRD) Non-Af >60 (>60 ml/min/1.73 sqM) 05/17/17 09:51 Glucose 187 mg/dL (74-99) H 05/17/17 09:51 Calcium 9.5 mg/dL (8.4-10.2) 05/17/17 09:51 Phosphorus 3.8 mg/dL (2.5-4.5) 05/10/17 22:40 Magnesium 1.8 mg/dL (1.6-2.3) 05/14/17 07:02 Total Bilirubin 0.3 mg/dL (0.2-1.3) 05/11/17 09:16 AST 14 U/L (17-59) L 05/11/17 09:16 ALT 26 U/L (21-72) 05/11/17 09:16 Alkaline Phosphatase 184 U/L (38-126) H 05/11/17 09:16 Total Creatine Kinase <20 U/L (55-170) L 05/10/17 22:40 CK-MB (CK-2) 0.5 ng/mL (0.0-2.4) 05/10/17 22:40 CK-MB (CK-2) Rel Index 05/10/17 22:40 Troponin I <0.012 ng/mL (0.000-0.034) 05/10/17 22:40 Total Protein 7.4 g/dL (6.3-8.2) 05/11/17 09:16 Albumin 3.2 g/dL (3.5-5.0) L 05/11/17 09:16 Microbiology 05/19/17 00:15 Blood Blood Culture Gram Stain - Preliminary 05/19/17 00:15 Blood Blood Culture - Preliminary 05/19/17 00:15 Blood Blood Culture - Final 05/13/17 08:33 Blood Blood Culture - Final No Growth after 144 hours 05/16/17 13:18 Picc Line Catheter Tip Culture - Final 05/14/17 07:02 Blood Blood Culture Gram Stain - Final 05/14/17 07:02 Blood Blood Culture - Final Enterococcus faecium 05/14/17 07:32 Blood Blood Culture Gram Stain - Final Yeast species 05/14/17 07:32 Blood Blood Culture - Final Alecia albicans 05/14/17 07:32 Blood Blood Culture - Final 05/11/17 07:53 Blood Blood Culture Gram Stain - Final 05/11/17 07:53 Blood Blood Culture - Final Escherichia coli Alpha Hemolytic Streptococcus Enterococcus faecium 05/14/17 07:02 Blood Blood Culture - Final 05/12/17 10:45 Urine,Clean Catch Urine Culture - Final 05/12/17 07:45 Blood Blood Culture - Final Assessment and Plan (1) Gram negative sepsis Narrative/Plan: 46 year male who is a very complicated and convoluted past medical history presents to the emergency center for further evaluation. He was having nausea and emesis and acute abdominal pain. This is now improved since he's been hydrated and received antibiotic therapy. Based on prior cultures antibiotic therapy at this time is been utilized with daptomycin and levofloxacin has been added based on his prior cultures. Cultures now available in the Levaquin is transitioned to cefepime to cover the drug resistant E. coli. Daptomycin continues. He is feeling better his fevers have improved. Data from [facility] is required as to recent surgery, recent blood and wound cultures, and clarification of his antibiotic therapy. As noted blood cultures are with Enterococcus faecalis, E. coli and the cefepime and daptomycin were being utilized. However new laboratories: The positive blood culture with yeast. With this micafungin was added. There is evidence of another positive blood culture. Appears to be failing daptomycin. Will be changed to Zyvox. His gentamicin ALLERGY. PICC line removed and right IJ central line has been placed. Once his bacteremia is cleared a more permanent IV access can then be placed. Patient is responding to therapy with improvement of fever or leukocytosis. Continues to have his ongoing back pain. Patient's had a marked improvement since removal of his PICC line. Pain control appears to be adequate Encouraged for her protein intake. Abdominal binder in place The Coumadin coagulopathy has been improved. No acute bleeding is noted. He has been seen by hematology and will try to change him to [facility]. Current Visit: Yes Status: Acute Code(s): A41.50 - GRAM-NEGATIVE SEPSIS, UNSPECIFIED SNOMED Code(s): 132148102 (2) Back pain Current Visit: No Status: Acute Code(s): M54.9 - DORSALGIA, UNSPECIFIED SNOMED Code(s): 133868071 (3) Fever Current Visit: No Status: Acute Priority: High Code(s): R50.9 - FEVER, UNSPECIFIED SNOMED Code(s): 078130092 (4) Hernia of abdominal wall Current Visit: Yes Status: Acute Code(s): K43.9 - VENTRAL HERNIA WITHOUT OBSTRUCTION OR GANGRENE SNOMED Code(s): 837360950
[2017-05-19] MEDS: HYDROmorphone 2 MG/ML 1 ML SYRINGE IVP PRN (22:50)
[2017-05-19] MEDS ORDERED: DAPTOmycin 500 MG in SODIUM CHLORIDE 0.9% 50 ML IVPB SCH (23:00)
[2017-05-19] MEDS: LINEZOLID 600 MG in DEXTROSE/WATER 1 300ML.BAG IVPB SCH (23:02)
[2017-05-20] MEDS: HYDROmorphone 2 MG TAB PO PRN ×8 (00:07→23:13)
[2017-05-20] MEDS: CEFEPIME 2 GM in SODIUM CHLORIDE 0.9% 50 ML IVPB SCH ×3 (01:52→16:14)
[2017-05-20] MEDS: PANTOPRAZOLE 40 MG TABLET PO SCH ×2 (07:10→17:28)
[2017-05-20] MEDS: LINEZOLID 600 MG in DEXTROSE/WATER 1 300ML.BAG IVPB SCH ×2 (08:22→20:25)
[2017-05-20] MEDS: APIXABAN 5 MG TAB PO SCH ×2 (08:26→20:24)
[2017-05-20] MEDS: LISINOPRIL 20 MG TAB PO SCH (08:26)
[2017-05-20] MEDS: MICAFUNGIN 100 MG in SODIUM CHLORIDE 0.9% 100 ML IVPB SCH (10:34)
[2017-05-20] MEDS: ONDANSETRON 4 MG/2 ML VIAL IVP PRN ×2 (11:37→20:24)
--- NOTE | 2017-05-20 11:43 | P.PN ---
Subjective Patient resting in bed with complaints of nausea blood cultures positive again at 05/19/2017 from gram-positive IV antibiotics adjusted by Dr. Amaral Objective - Vital Signs Vital signs: Vital Signs Temp 97.0 F L 05/20/17 07:28 Pulse 82 05/20/17 07:28 Resp 16 05/20/17 07:34 BP 128/87 05/20/17 07:28 Pulse Ox 99 05/20/17 07:28 Intake & Output 05/19/17 05/20/17 05/20/17 18:59 06:59 18:59 Intake Total 350 180 Balance 350 180 Intake: Intake, IV Titration 350 Amount Cefepime 2 gm In Sodium 50 Chloride 0.9% 50 ml @ 100 mls/hr IVPB Q8HR PRISCILLA Rx# :[id number] Linezolid 600 mg In 300 Dextrose/Water 1 300ml. bag @ 150 mls/hr IVPB Q12HR PRISCILLA Rx#:[id number] Oral 180 Other: Voiding Method Toilet Toilet Toilet # Voids 3 2 - Constitutional General appearance: Present: mild distress - EENT Eyes: Present: abnormal pupil Ears: bilateral: normal - Neck Neck: Present: normal ROM - Respiratory Respiratory: bilateral: CTA - Cardiovascular Rhythm: regular - Gastrointestinal General gastrointestinal: Present: soft - Integumentary Integumentary: Present: normal - Neurologic Neurologic: Present: CNII-XII intact - Musculoskeletal Musculoskeletal: Present: generalized weakness - Psychiatric Psychiatric: Present: A&O x's 3, appropriate affect, intact judgment & insight - Labs CBC & Chem 7: 05/17/17 09:51 05/17/17 09:51 Labs: Microbiology - Last 24 Hours (Table) 05/19/17 00:15 Blood Culture Gram Stain - Preliminary Blood Blood Culture - Preliminary 05/19/17 00:15 Blood Culture - Final Blood 05/13/17 08:33 Blood Culture - Final Blood No Growth after 144 hours Assessment and Plan Plan: Assessment Abdominal pain with diarrhea and vomiting soft Pneumonia Sepsis from PICC line as evidenced by positive blood cultures Coumadin coagulopathy Anemia microcytic Hypokalemia corrected DVT right arm GERD Degenerative joint disease Remote endocarditis from an infected PICC line Hypertension History of splenomegaly Anxiety lumbar osteomyelitis history of [place] and 04/10/2017 PICC line removed has temporary central line Plan Continue consultation with Dr. Amaral on antifungal medicine cefepime and linezolid
--- NOTE | 2017-05-20 16:06 | P.PN ---
Subjective Progress Note Date: 05/20/17 Principal diagnosis: sepsis 46-year-old male well-known to the infectious disease service regarding his many hospitalizations. He's had multiple bouts of sepsis including PICC line related infections that were polymicrobial in nature. In the latter part of 2016 he was in the [facility] for potential abdominal wall reconstructive surgery. However because of the patient's many many infections he was deemed a very poor candidate even for biological mesh because of the risk of infection. Fortunately the abdominal wall is intact. He does have intermittent bouts of some discomfort. He then relates he started developing increasing amounts of back pain. He was seen by his surgeon at [facility]. 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 Then reports that he underwent a decompressive procedure isn't receiving intravenous antibiotic therapy with daptomycin and Tefloro. Patient chaz was doing relatively well until he had the sudden onset of increasing abdominal pain associated with nausea and emesis. He felt very poorly. At presentation he had evidence of high-grade fever some chills and appeared to have sepsis. With evidence of a positive blood culture for gram-negative bacilli infectious diseases consultation has been requested. Data from the outside hospital has been requested. This is to clarify his blood cultures, surgical cultures, and current inpatient intravenous antibiotic therapy. The patient has significant difficulties with IV access. At this facility and at [place] there have been difficulties with placement of his PICC lines. Other than his chronic back pain is stable. Fever and chills improved. Appetite is adequate. The laboratory is now related that in addition to the gram-positive and gram- negative bacterial infection there is evidence of yeast in the blood culture. Dr. Nova of surgery has been called and have placed temporary central line, with removal of his PICC line which is a source of his sepsis. Despite remove the PICC line we again have a possible culture for gram-positive cocci in chains. Likely enterococcus. Consulate the time of the call of the positive blood culture the antimicrobial therapy was altered from daptomycin to Zyvox. Once he has complete clearance of his sepsis than a Hinds catheter may be placed to complete his course of intravenous antibiotic therapy that will be required. Follow up blood cultures again positive. Objective - Vital Signs Vital signs: Vital Signs Temp 96.9 F L 05/20/17 13:59 Pulse 80 05/20/17 13:59 Resp 16 05/20/17 13:59 BP 128/75 05/20/17 13:59 Pulse Ox 98 05/20/17 13:59 Intake & Output 05/19/17 05/20/17 05/20/17 18:59 06:59 18:59 Intake Total 350 830 Balance 350 830 Intake: Intake, IV Titration 350 Amount Cefepime 2 gm In Sodium 50 Chloride 0.9% 50 ml @ 100 mls/hr IVPB Q8HR PRIS[facility]LLA Rx# :[id number] Linezolid 600 mg In 300 Dextrose/Water 1 300ml. bag @ 150 mls/hr IVPB Q12HR PR[facility]A Rx#:[id number] Oral 830 Other: Voiding Method Toilet Toilet Toilet # Voids 3 2 - Exam 46-year-old male who is more comfortable at this time that admission. his back pain is stabilized. HEENT: Anicteric conjunctiva are pink and moist nasal mucosa grossly intact without significant lesions, there is no thrush. Does have evidence of the injury to his eye. Neck: The neck is supple without significant lymphadenopathy or thyromegaly. Surgical scar is well-healed the triple-lumen right IJ intact. Lungs: Good bilateral air entry without significant crackles or wheezing. There is no significant bronchial sounds. There is no egophony or dullness. Heart: Regular with an audible S1 and S2 no S3 soft S4 2/6 murmur left sternal border without radiation. PMI was nondisplaced Abdomen: Positive bowel sounds soft and without significant tenderness. No palpable masses or organomegaly. There is benefits of the extensive prior surgical interventions but the abdominal wall is intact without opening or drainage. Extremities: Left upper extremity prior PICC line site is without expressible purulence, no significant tenderness or ascending erythema. Right upper extremity reveals some swelling in the patient relates a recent deep venous thrombosis diagnosed at [place]. Confirmed here. Lower extremities have some trace edema. Spine shows evidence of the recent surgical interventions that are healing well some point tenderness but no bulge or purulence is seen. Neuro: Awake alert oriented to person place and time. There are no acute new gross focal sensory motor deficits. - Labs CBC & Chem 7: 05/17/17 09:51 05/17/17 09:51 Labs: Microbiology - Last 24 Hours (Table) 05/19/17 00:15 Blood Culture Gram Stain - Preliminary Blood Blood Culture - Preliminary 05/19/17 00:15 Blood Culture - Final Blood 05/13/17 08:33 Blood Culture - Final Blood No Growth after 144 hours Laboratory Results WBC 7.1 k/uL (3.8-10.6) 05/17/17 09:51 RBC 3.64 m/uL (4.30-5.90) L 05/17/17 09:51 Hgb 8.7 gm/dL (13.0-17.5) L 05/17/17 09:51 Hct 29.7 % (39.0-53.0) L 05/17/17 09:51 MCV 81.7 fL (80.0-100.0) 05/17/17 09:51 MCH 23.9 pg (25.0-35.0) L 05/17/17 09:51 MCHC 29.3 g/dL (31.0-37.0) L 05/17/17 09:51 RDW 20.4 % (11.5-15.5) H 05/17/17 09:51 Plt Count 365 k/uL (150-450) 05/17/17 09:51 Neutrophils % 66 % 05/14/17 07:02 Lymphocytes % 14 % 05/14/17 07:02 Monocytes % 5 % 05/14/17 07:02 Eosinophils % 13 % 05/14/17 07:02 Basophils % 0 % 05/14/17 07:02 Neutrophils # 3.0 k/uL (1.3-7.7) 05/14/17 07:02 Lymphocytes # 0.7 k/uL (1.0-4.8) L 05/14/17 07:02 Monocytes # 0.2 k/uL (0-1.0) 05/14/17 07:02 Eosinophils # 0.6 k/uL (0-0.7) 05/14/17 07:02 Basophils # 0.0 k/uL (0-0.2) 05/14/17 07:02 Manual Slide Review Performed 05/10/17 22:40 Hypochromasia Marked 05/17/17 09:51 Poikilocytosis Slight 05/17/17 09:51 Anisocytosis Moderate 05/17/17 09:51 Microcytosis Slight 05/17/17 09:51 PT 11.2 sec (9.0-12.0) 05/14/17 07:02 INR 1.2 (<1.2) H 05/14/17 07:02 APTT 90.4 sec (22.0-30.0) H 05/10/17 22:40 Sodium 137 mmol/L (137-145) 05/17/17 09:51 Potassium 3.6 mmol/L (3.5-5.1) 05/17/17 09:51 Chloride 102 mmol/L (98-107) 05/17/17 09:51 Carbon Dioxide 25 mmol/L (22-30) 05/17/17 09:51 Anion Gap 10 mmol/L 05/17/17 09:51 BUN 8 mg/dL (9-20) L 05/17/17 09:51 Creatinine 0.49 mg/dL (0.66-1.25) L 05/17/17 09:51 Est GFR (MDRD) Af Amer >60 (>60 ml/min/1.73 sqM) 05/17/17 09:51 Est GFR (MDRD) Non-Af >60 (>60 ml/min/1.73 sqM) 05/17/17 09:51 Glucose 187 mg/dL (74-99) H 05/17/17 09:51 Calcium 9.5 mg/dL (8.4-10.2) 05/17/17 09:51 Phosphorus 3.8 mg/dL (2.5-4.5) 05/10/17 22:40 Magnesium 1.8 mg/dL (1.6-2.3) 05/14/17 07:02 Total Bilirubin 0.3 mg/dL (0.2-1.3) 05/11/17 09:16 AST 14 U/L (17-59) L 05/11/17 09:16 ALT 26 U/L (21-72) 05/11/17 09:16 Alkaline Phosphatase 184 U/L (38-126) H 05/11/17 09:16 Total Creatine Kinase <20 U/L (55-170) L 05/10/17 22:40 CK-MB (CK-2) 0.5 ng/mL (0.0-2.4) 05/10/17 22:40 CK-MB (CK-2) Rel Index 05/10/17 22:40 Troponin I <0.012 ng/mL (0.000-0.034) 05/10/17 22:40 Total Protein 7.4 g/dL (6.3-8.2) 05/11/17 09:16 Albumin 3.2 g/dL (3.5-5.0) L 05/11/17 09:16 Microbiology 05/19/17 00:15 Blood Blood Culture Gram Stain - Preliminary 05/19/17 00:15 Blood Blood Culture - Preliminary 05/19/17 00:15 Blood Blood Culture - Final 05/13/17 08:33 Blood Blood Culture - Final No Growth after 144 hours 05/16/17 13:18 Picc Line Catheter Tip Culture - Final 05/14/17 07:02 Blood Blood Culture Gram Stain - Final 05/14/17 07:02 Blood Blood Culture - Final Enterococcus faecium 05/14/17 07:32 Blood Blood Culture Gram Stain - Final Yeast species 05/14/17 07:32 Blood Blood Culture - Final Alecia albicans 05/14/17 07:32 Blood Blood Culture - Final 05/11/17 07:53 Blood Blood Culture Gram Stain - Final 05/11/17 07:53 Blood Blood Culture - Final Escherichia coli Alpha Hemolytic Streptococcus Enterococcus faecium 05/14/17 07:02 Blood Blood Culture - Final 05/12/17 10:45 Urine,Clean Catch Urine Culture - Final 05/12/17 07:45 Blood Blood Culture - Final Assessment and Plan (1) Gram negative sepsis Narrative/Plan: 46 year male who is a very complicated and convoluted past medical history presents to the emergency center for further evaluation. He was having nausea and emesis and acute abdominal pain. This is now improved since he's been hydrated and received antibiotic therapy. Based on prior cultures antibiotic therapy at this time is been utilized with daptomycin and levofloxacin has been added based on his prior cultures. Cultures now available in the Levaquin is transitioned to cefepime to cover the drug resistant E. coli. Daptomycin continues. He is feeling better his fevers have improved. Data from [facility] is required as to recent surgery, recent blood and wound cultures, and clarification of his antibiotic therapy. As noted blood cultures are with Enterococcus faecalis, E. coli and the cefepime and daptomycin were being utilized. However new laboratories: The positive blood culture with yeast. With this micafungin was added. There is evidence of another positive blood culture. Appears to be failing daptomycin. Will be changed to Zyvox. Has gentamicin ALLERGY. Further blood cultures are requested. Fortunately he is feeling relatively well fever is resolved, PICC line removed and right IJ central line has been placed. Once his bacteremia is cleared a more permanent IV access can then be placed. Patient is responding to therapy with improvement of fever or leukocytosis. Continues to have his ongoing back pain. Patient's had a marked improvement since removal of his PICC line. Pain control appears to be adequate Encouraged for her protein intake. Abdominal binder in place The Coumadin coagulopathy has been improved. No acute bleeding is noted. He has been seen by hematology and will try to change him to [facility]. Current Visit: Yes Status: Acute Code(s): A41.50 - GRAM-NEGATIVE SEPSIS, UNSPECIFIED SNOMED Code(s): 651345114 (2) Back pain Current Visit: No Status: Acute Code(s): M54.9 - DORSALGIA, UNSPECIFIED SNOMED Code(s): 947343438 (3) Fever Current Visit: No Status: Acute Priority: High Code(s): R50.9 - FEVER, UNSPECIFIED SNOMED Code(s): 416718318 (4) Hernia of abdominal wall Current Visit: Yes Status: Acute Code(s): K43.9 - VENTRAL HERNIA WITHOUT OBSTRUCTION OR GANGRENE SNOMED Code(s): 248273635
[2017-05-21] MEDS: CEFEPIME 2 GM in SODIUM CHLORIDE 0.9% 50 ML IVPB SCH ×4 (00:04→23:47)
[2017-05-21] MEDS: HYDROmorphone 2 MG TAB PO PRN ×7 (01:56→22:30)
[2017-05-21] MEDS: APIXABAN 5 MG TAB PO SCH (08:32)
[2017-05-21] MEDS: PANTOPRAZOLE 40 MG TABLET PO SCH ×2 (08:32→16:24)
[2017-05-21] MEDS: LISINOPRIL 20 MG TAB PO SCH (08:32)
[2017-05-21] MEDS: MICAFUNGIN 100 MG in SODIUM CHLORIDE 0.9% 100 ML IVPB SCH (10:02)
--- NOTE | 2017-05-21 11:26 | P.PN ---
Subjective Principal diagnosis: Patient sitting at bedside without complaint at this time. Discuss case with Dr. Amaral regarding sepsis and MARTA with our present plan. Patient states back is improved since surgery in April at [facility] - Vital Signs Vital signs: Vital Signs Temp 97.6 F 05/21/17 08:36 Pulse 76 05/21/17 08:36 Resp 16 05/21/17 08:36 BP 155/94 05/21/17 08:36 Pulse Ox 99 05/21/17 08:36 Intake & Output 05/20/17 05/21/17 05/21/17 18:59 06:59 18:59 Intake Total 830 350 237 Output Total 450 Balance 830 -100 237 Intake: Intake, IV Titration 350 Amount Cefepime 2 gm In Sodium 50 Chloride 0.9% 50 ml @ 100 mls/hr IVPB Q8HR [facility] Rx# :[id number] Linezolid 600 mg In 300 Dextrose/Water 1 300ml. bag @ 150 mls/hr IVPB Q12HR [facility] Rx#:[id number] Oral 830 237 Output: Urine 450 Other: Voiding Method Toilet Toilet # Voids 2 1 - Constitutional General appearance: Present: mild distress - EENT Eyes: Present: abnormal pupil Ears: bilateral: normal - Neck Neck: Present: normal ROM - Respiratory Respiratory: bilateral: CTA - Cardiovascular Rhythm: regular - Gastrointestinal General gastrointestinal: Present: soft - Integumentary Integumentary: Present: normal - Psychiatric Psychiatric: Present: A&O x's 3, appropriate affect, intact judgment & insight - Labs CBC & Chem 7: 05/17/17 09:51 05/17/17 09:51 Labs: Microbiology - Last 24 Hours (Table) 05/19/17 23:00 Blood Culture - Preliminary Blood No Growth after 24 hours 05/19/17 00:15 Blood Culture Gram Stain - Preliminary Blood Blood Culture - Preliminary Group D Enterococcus Assessment and Plan Assessment: Assessment Abdominal pain and vomiting with diarrhea improved Pneumonia Sepsis secondary to PICC line Coumadin coagulopathy Anemia microcytic Hypokalemia corrected DVT right arm from PICC line from [place] GERD Degenerative joint disease 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 Amaral
[2017-05-21] MEDS ORDERED: POLYETHYLENE GLYCOL 3350 17 GM POWD.PACK PO PRN (11:53)
[2017-05-21] MEDS: LINEZOLID 600 MG in DEXTROSE/WATER 1 300ML.BAG IVPB SCH ×2 (11:57→19:40)
[2017-05-21] MEDS: AMMONIUM LACTATE 12% LOTION 225 GM BTL TOPICAL SCH (14:59)
[2017-05-21] MEDS: tiZANidine 4 MG TAB PO PRN (20:12)
--- NOTE | 2017-05-21 22:41 | P.PN ---
Subjective Progress Note Date: 05/21/17 Principal diagnosis: sepsis 46-year-old male well-known to the infectious disease service regarding his many hospitalizations. He's had multiple bouts of sepsis including PICC line related infections that were polymicrobial in nature. In the latter part of 2016 he was in the [facility] for potential abdominal wall reconstructive surgery. However because of the patient's many many infections he was deemed a very poor candidate even for biological mesh because of the risk of infection. Fortunately the abdominal wall is intact. He does have intermittent bouts of some discomfort. He then relates he started developing increasing amounts of back pain. He was seen by his surgeon at [facility]. 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 Then reports that he underwent a decompressive procedure isn't receiving intravenous antibiotic therapy with daptomycin and Tefloro. Patient chaz was doing relatively well until he had the sudden onset of increasing abdominal pain associated with nausea and emesis. He felt very poorly. At presentation he had evidence of high-grade fever some chills and appeared to have sepsis. With evidence of a positive blood culture for gram-negative bacilli infectious diseases consultation has been requested. Data from the outside hospital has been requested. This is to clarify his blood cultures, surgical cultures, and current inpatient intravenous antibiotic therapy. The patient has significant difficulties with IV access. At this facility and at [place] there have been difficulties with placement of his PICC lines. Other than his chronic back pain is stable. Fever and chills improved. Appetite is adequate. The laboratory is now related that in addition to the gram-positive and gram- negative bacterial infection there is evidence of yeast in the blood culture. Dr. Nova of surgery has been called and have placed temporary central line, with removal of his PICC line which is a source of his sepsis. Despite remove the PICC line we again have a possible culture for gram-positive cocci in chains. Likely enterococcus. Consulate the time of the call of the positive blood culture the antimicrobial therapy was altered from daptomycin to Zyvox. Once he has complete clearance of his sepsis than a Hinds catheter may be placed to complete his course of intravenous antibiotic therapy that will be required. Follow up blood cultures again positive. Objective - Vital Signs Vital signs: Vital Signs Temp 97.1 F L 05/21/17 19:37 Pulse 107 H 05/21/17 19:37 Resp 16 05/21/17 19:37 BP 155/96 05/21/17 19:37 Pulse Ox 95 05/21/17 19:37 Intake & Output 05/21/17 05/21/17 05/22/17 06:59 18:59 06:59 Intake Total 350 474 300 Output Total 450 Balance -100 474 300 Weight 81.647 kg Intake: Intake, IV Titration 350 300 Amount Cefepime 2 gm In Sodium 50 Chloride 0.9% 50 ml @ 100 mls/hr IVPB Q8HR [facility] Rx# :[id number] Linezolid 600 mg In 300 300 Dextrose/Water 1 300ml. bag @ 150 mls/hr IVPB Q12HR PR[facility]LLA Rx#:[id number] Oral 474 Output: Urine 450 Other: Voiding Method Toilet Toilet # Voids 2 - Exam 46-year-old male who is more comfortable at this time that admission. his back pain is stabilized. HEENT: Anicteric conjunctiva are pink and moist nasal mucosa grossly intact without significant lesions, there is no thrush. Does have evidence of the injury to his eye. Neck: The neck is supple without significant lymphadenopathy or thyromegaly. Surgical scar is well-healed the triple-lumen right IJ intact. Lungs: Good bilateral air entry without significant crackles or wheezing. There is no significant bronchial sounds. There is no egophony or dullness. Heart: Regular with an audible S1 and S2 no S3 soft S4 2/6 murmur left sternal border without radiation. PMI was nondisplaced Abdomen: Positive bowel sounds soft and without significant tenderness. No palpable masses or organomegaly. There is benefits of the extensive prior surgical interventions but the abdominal wall is intact without opening or drainage. Extremities: Left upper extremity prior PICC line site is without expressible purulence, no significant tenderness or ascending erythema. Right upper extremity reveals some swelling in the patient relates a recent deep venous thrombosis diagnosed at [place]. Confirmed here. Lower extremities have some trace edema. Spine shows evidence of the recent surgical interventions that are healing well some point tenderness but no bulge or purulence is seen. Patient is able to up and ambulate and has no other acute changes to his spine. Neuro: Awake alert oriented to person place and time. There are no acute new gross focal sensory motor deficits. - Labs CBC & Chem 7: 05/17/17 09:51 05/17/17 09:51 Labs: Microbiology - Last 24 Hours (Table) 05/19/17 23:00 Blood Culture - Preliminary Blood No Growth after 24 hours 05/19/17 00:15 Blood Culture Gram Stain - Preliminary Blood Blood Culture - Preliminary Group D Enterococcus Laboratory Results WBC 7.1 k/uL (3.8-10.6) 05/17/17 09:51 RBC 3.64 m/uL (4.30-5.90) L 05/17/17 09:51 Hgb 8.7 gm/dL (13.0-17.5) L 05/17/17 09:51 Hct 29.7 % (39.0-53.0) L 05/17/17 09:51 MCV 81.7 fL (80.0-100.0) 05/17/17 09:51 MCH 23.9 pg (25.0-35.0) L 05/17/17 09:51 MCHC 29.3 g/dL (31.0-37.0) L 05/17/17 09:51 RDW 20.4 % (11.5-15.5) H 05/17/17 09:51 Plt Count 365 k/uL (150-450) 05/17/17 09:51 Neutrophils % 66 % 05/14/17 07:02 Lymphocytes % 14 % 05/14/17 07:02 Monocytes % 5 % 05/14/17 07:02 Eosinophils % 13 % 05/14/17 07:02 Basophils % 0 % 05/14/17 07:02 Neutrophils # 3.0 k/uL (1.3-7.7) 05/14/17 07:02 Lymphocytes # 0.7 k/uL (1.0-4.8) L 05/14/17 07:02 Monocytes # 0.2 k/uL (0-1.0) 05/14/17 07:02 Eosinophils # 0.6 k/uL (0-0.7) 05/14/17 07:02 Basophils # 0.0 k/uL (0-0.2) 05/14/17 07:02 Manual Slide Review Performed 05/10/17 22:40 Hypochromasia Marked 05/17/17 09:51 Poikilocytosis Slight 05/17/17 09:51 Anisocytosis Moderate 05/17/17 09:51 Microcytosis Slight 05/17/17 09:51 PT 11.2 sec (9.0-12.0) 05/14/17 07:02 INR 1.2 (<1.2) H 05/14/17 07:02 APTT 90.4 sec (22.0-30.0) H 05/10/17 22:40 Sodium 137 mmol/L (137-145) 05/17/17 09:51 Potassium 3.6 mmol/L (3.5-5.1) 05/17/17 09:51 Chloride 102 mmol/L (98-107) 05/17/17 09:51 Carbon Dioxide 25 mmol/L (22-30) 05/17/17 09:51 Anion Gap 10 mmol/L 05/17/17 09:51 BUN 8 mg/dL (9-20) L 05/17/17 09:51 Creatinine 0.49 mg/dL (0.66-1.25) L 05/17/17 09:51 Est GFR (MDRD) Af Amer >60 (>60 ml/min/1.73 sqM) 05/17/17 09:51 Est GFR (MDRD) Non-Af >60 (>60 ml/min/1.73 sqM) 05/17/17 09:51 Glucose 187 mg/dL (74-99) H 05/17/17 09:51 Calcium 9.5 mg/dL (8.4-10.2) 05/17/17 09:51 Phosphorus 3.8 mg/dL (2.5-4.5) 05/10/17 22:40 Magnesium 1.8 mg/dL (1.6-2.3) 05/14/17 07:02 Total Bilirubin 0.3 mg/dL (0.2-1.3) 05/11/17 09:16 AST 14 U/L (17-59) L 05/11/17 09:16 ALT 26 U/L (21-72) 05/11/17 09:16 Alkaline Phosphatase 184 U/L (38-126) H 05/11/17 09:16 Total Creatine Kinase <20 U/L (55-170) L 05/10/17 22:40 CK-MB (CK-2) 0.5 ng/mL (0.0-2.4) 05/10/17 22:40 CK-MB (CK-2) Rel Index 05/10/17 22:40 Troponin I <0.012 ng/mL (0.000-0.034) 05/10/17 22:40 Total Protein 7.4 g/dL (6.3-8.2) 05/11/17 09:16 Albumin 3.2 g/dL (3.5-5.0) L 05/11/17 09:16 Microbiology 05/19/17 23:00 Blood Blood Culture - Preliminary No Growth after 24 hours 05/19/17 00:15 Blood Blood Culture Gram Stain - Preliminary 05/19/17 00:15 Blood Blood Culture - Preliminary Group D Enterococcus 05/19/17 00:15 Blood Blood Culture - Final 05/13/17 08:33 Blood Blood Culture - Final No Growth after 144 hours 05/16/17 13:18 Picc Line Catheter Tip Culture - Final 05/14/17 07:02 Blood Blood Culture Gram Stain - Final 05/14/17 07:02 Blood Blood Culture - Final Enterococcus faecium 05/14/17 07:32 Blood Blood Culture Gram Stain - Final Yeast species 05/14/17 07:32 Blood Blood Culture - Final Alecia albicans 05/14/17 07:32 Blood Blood Culture - Final 05/11/17 07:53 Blood Blood Culture Gram Stain - Final 05/11/17 07:53 Blood Blood Culture - Final Escherichia coli Alpha Hemolytic Streptococcus Enterococcus faecium 05/14/17 07:02 Blood Blood Culture - Final 05/12/17 10:45 Urine,Clean Catch Urine Culture - Final 05/12/17 07:45 Blood Blood Culture - Final Assessment and Plan (1) Gram negative sepsis Narrative/Plan: 46 year male who is a very complicated and convoluted past medical history presents to the emergency center for further evaluation. He was having nausea and emesis and acute abdominal pain. This is now improved since he's been hydrated and received antibiotic therapy. Based on prior cultures antibiotic therapy at this time is been utilized with daptomycin and levofloxacin has been added based on his prior cultures. Cultures now available in the Levaquin is transitioned to cefepime to cover the drug resistant E. coli. Daptomycin continues. He is feeling better his fevers have improved. Data from [facility] is required as to recent surgery, recent blood and wound cultures, and clarification of his antibiotic therapy. As noted blood cultures are with Enterococcus faecalis, E. coli and the cefepime and daptomycin were being utilized. However new laboratories: The positive blood culture with yeast. With this micafungin was added. There is evidence of another positive blood culture. Appears to be failing daptomycin. Will be changed to Zyvox. Has gentamicin ALLERGY. Further blood cultures are requested. Fortunately he is feeling relatively well fever is resolved, PICC line removed and right IJ central line has been placed. Once his bacteremia is cleared a more permanent IV access can then be placed. Patient is responding to therapy with improvement of fever or leukocytosis. Continues to have his ongoing back pain. No worsening. Case is discussed the primary care physician. It does appear that he has PICC line sepsis in the back infection is stable. Patient's had a marked improvement since removal of his PICC line. Pain control appears to be adequate Encouraged for her protein intake. Abdominal binder in place The Coumadin coagulopathy has been improved. No acute bleeding is noted. He has been seen by hematology and now on Elaquis. Current Visit: Yes Status: Acute Code(s): A41.50 - GRAM-NEGATIVE SEPSIS, UNSPECIFIED SNOMED Code(s): 957627918 (2) Back pain Current Visit: No Status: Acute Code(s): M54.9 - DORSALGIA, UNSPECIFIED SNOMED Code(s): 386246487 (3) Fever Current Visit: No Status: Acute Priority: High Code(s): R50.9 - FEVER, UNSPECIFIED SNOMED Code(s): 526167708 (4) Hernia of abdominal wall Current Visit: Yes Status: Acute Code(s): K43.9 - VENTRAL HERNIA WITHOUT OBSTRUCTION OR GANGRENE SNOMED Code(s): 404954369
[2017-05-22] MEDS: HYDROmorphone 2 MG TAB PO PRN ×6 (01:56→20:58)
[2017-05-22] MEDS: tiZANidine 4 MG TAB PO PRN ×2 (03:58→14:52)
[2017-05-22] MEDS: CEFEPIME 2 GM in SODIUM CHLORIDE 0.9% 50 ML IVPB SCH ×2 (07:04→15:00)
[2017-05-22] MEDS: PANTOPRAZOLE 40 MG TABLET PO SCH ×2 (07:05→16:37)
[2017-05-22] MEDS: LISINOPRIL 20 MG TAB PO SCH (07:05)
[2017-05-22] MEDS: AMMONIUM LACTATE 12% LOTION 225 GM BTL TOPICAL SCH (07:06)
[2017-05-22] MEDS: MICAFUNGIN 100 MG in SODIUM CHLORIDE 0.9% 100 ML IVPB SCH (08:24)
--- NOTE | 2017-05-22 10:04 | P.PN ---
Subjective 46-year-old gentleman admitted for sepsis secondary to central infection patient has a PICC line in the left arm patient's blood cultures are showing yeast now had enterococcus DE coli and a C serum and also hemolytic streptococci. Patient is on daptomycin was started on micafungin now is also on cefepime. PICC line will be removed today because of miguel in the blood cultures patient will receive his subclavian port, patient had multiple episodes of bacteremia in the past even endocarditis and is osteomyelitis of the back and patient recently underwent decompression surgery. 05/17/2017 Patient had a subclavian line line as there is no peripheral access available. A central line Tod the patient is otherwise clinically doing well switching his oral Dilaudid to IV Dilaudid because of nonavailability of oral Dilaudid with pharmacy May 18 2017 Clinically stable awaiting clearance of blood cultures 05/22/2017 patient can he is to be bacteremic with enterococcus patient will undergo PERRY repeat blood cultures today and tomorrow morning. Constitutional: Denied any fatigue denied any fever. Cardio vascular: denied any chest pain, palpitations Gastrointestinal denied any nausea vomiting Pulmonary: Denied any shortness of breath cough Neurologic denied any new focal deficits Objective - Vital Signs Vital signs: Vital Signs Temp 98.0 F 05/22/17 07:08 Pulse 92 05/22/17 07:08 Resp 16 05/22/17 08:30 BP 104/60 05/22/17 07:08 Pulse Ox 95 05/22/17 07:08 Intake & Output 05/21/17 05/22/17 05/22/17 18:59 06:59 18:59 Intake Total 474 840 220 Balance 474 840 220 Weight 81.647 kg Intake: Intake, IV Titration 300 Amount Linezolid 600 mg In 300 Dextrose/Water 1 300ml. bag @ 150 mls/hr IVPB Q12HR [facility] Rx#:[id number] Oral 474 540 220 Other: Voiding Method Toilet Toilet # Voids 2 1 - Exam PHYSICAL EXAMINATION: GENERAL: The patient is alert and oriented x3, not in any acute distress. Well developed, well nourished. HEENT: Pupils are round and equally reacting to light. EOMI. No scleral icterus. No conjunctival pallor. Normocephalic, atraumatic. No pharyngeal erythema. No thyromegaly. CARDIOVASCULAR: S1 and S2 present. No murmurs, rubs, or gallops. PULMONARY: Chest is clear to auscultation, no wheezing or crackles. ABDOMEN: Soft, nontender, nondistended, normoactive bowel sounds. No palpable organomegaly. MUSCULOSKELETAL: No joint swelling or deformity. EXTREMITIES: No cyanosis, clubbing, or pedal edema. Left arm PICC line was removed and patient now has a right subclavian line NEUROLOGICAL: Gross neurological examination did not reveal any focal deficits. SKIN: No rashes. - Labs CBC & Chem 7: 05/17/17 09:51 05/17/17 09:51 Labs: Microbiology - Last 24 Hours (Table) 05/21/17 11:00 Blood Culture Gram Stain - Preliminary Blood 05/21/17 10:45 Blood Culture - Final Blood 05/19/17 23:00 Blood Culture - Preliminary Blood No Growth after 48 hours 05/19/17 00:15 Blood Culture Gram Stain - Final Blood Blood Culture - Final Enterococcus faecium Assessment and Plan Plan: -Sepsis and bacteremia polymicrobial and patient now has fungal bacteremia as well. PICC line was removed couple days ago Continue with Zyvox, cefepime and micafungin. Patient continues to be bacteremic with enterococcus -DVT in the past: Patient was started on new anticoagulation Coumadin was discontinued -History of endocarditis and osteomyelitis of the back. -Hypertension -Gastroesophageal reflux disease
[2017-05-22] MEDS: LINEZOLID 600 MG in DEXTROSE/WATER 1 300ML.BAG IVPB SCH ×2 (10:09→20:57)
--- NOTE | 2017-05-22 11:44 | ECHOF ---
Referral Reason:vegetation MEASUREMENTS -------- HEIGHT: 172.7 cm WEIGHT: 81.6 kg BP: RVIDd: 3.3 cm (< 3.3) IVSd: 1.0 cm (0.6 - 1.1) LVIDd: 4.3 cm (3.9 - 5.3) LVPWd: 1.2 cm (0.6 - 1.1) IVSs: 1.2 cm LVIDs: 2.9 cm LVPWs: 1.7 cm LAESV Index (A-L): 32.66 ml/m Ao Diam: 3.1 cm (2.0 - 3.7) AV Cusp: 1.7 cm (1.5 - 2.6) LA Diam: 3.9 cm (2.7 - 3.8) EPSS: 0.5 cm MV E Simba: 0.85 m/s MV DecT: 322 ms MV A Simba: 0.92 m/s MV E/A Ratio: 0.92 RAP: 5.00 mmHg RVSP: 61.36 mmHg MV EF SLOPE: 90.74 mm/s (70 - 150) MV EXCURSION: 1.30 cm (> 18.000) FINDINGS -------- Sinus rhythm. This was a technically adequate study. The left ventricular size is normal. There is borderline concentric left ventricular hypertrophy. Overall left ventricular systolic function is normal with, an EF between 55 - 60 %. The right ventricle is normal in size and function. LA is midly dilated 29-33ml/m2. The right atrium is normal in size. The aortic valve is trileaflet, and appears structurally normal. No aortic stenosis or regurgitation. The mitral valve leaflets are mildly thickened. There is trace to mild mitral regurgitation. Mild tricuspid regurgitation present. There is mild pulmonary hypertension. The right ventricular systolic pressure, as measured by Doppler, is 61.36mmHg. The pulmonic valve was not well visualized. The aortic root size is normal. Normal inferior vena cava with normal inspiratory collapse consistent with estimated right atrial pre ssure of 5 mmHg. The pericardium is normal. There is no pericardial effusion. CONCLUSIONS -------- 1. Sinus rhythm. 2. This was a technically adequate study. 3. The left ventricular size is normal. 4. There is borderline concentric left ventricular hypertrophy. 5. Overall left ventricular systolic function is normal with, an EF between 55 - 60 %. 6. LA is midly dilated 29-33ml/m2. 7. The aortic valve is trileaflet, and appears structurally normal. No aortic stenosis or regurgitati on. 8. The mitral valve leaflets are mildly thickened. 9. There is trace to mild mitral regurgitation. 10. Mild tricuspid regurgitation present. 11. There is mild pulmonary hypertension. 12. The right ventricular systolic pressure, as measured by Doppler, is 61.36mmHg. 13. The pulmonic valve was not well visualized. 14. The aortic root size is normal. 15. There is no pericardial effusion. ANSWERER: Isaac Simmons RDCS
--- NOTE | 2017-05-22 12:28 | P.PN ---
Subjective Progress Note Date: 05/15/17 Progress note. Dictated for Dr. Lang Interval history: This is a 46-year-old gentleman admitted with sepsis and bacteremia secondary to central infection/PICC line in the left arm.History of multiple episodes of bacteremia, endocarditis and osteomyelitis of the back.Recently underwent decompression surgery. Blood cultures reporting E. coli , alpha hemolytic streptococcus, group D enterococcus. Maintained on daptomycin and cefepime. PICC line will be removed and replaced with new central line tomorrow. Afebrile. Constitutional: Denied any fatigue denied any fever. Cardio vascular: denied any chest pain, palpitations Gastrointestinal denied any nausea vomiting Pulmonary: Denied any shortness of breath cough Neurologic denied any new focal deficits Objective - Vital Signs Vital signs: Vital Signs Temp 97 F L 05/15/17 14:26 Pulse 96 05/15/17 14:26 Resp 16 05/15/17 14:26 BP 124/76 05/15/17 14:26 Pulse Ox 94 L 05/15/17 14:26 Intake & Output 05/14/17 05/15/17 05/15/17 18:59 06:59 18:59 Intake Total 237 550 654 Output Total 800 Balance 237 -250 654 Weight 81.647 kg Intake: Intake, IV Titration 50 Amount Cefepime 2 gm In Sodium 50 Chloride 0.9% 50 ml @ 100 mls/hr IVPB Q8HR [facility] Rx# :[id number] Oral 237 500 654 Output: Urine 800 Other: Voiding Method Toilet Toilet Toilet Urinal Urinal Urinal # Voids 1 2 2 # Bowel Movements 1 1 - Exam GENERAL: The patient is alert and oriented x3, not in any acute distress. Well developed, well nourished. HEENT: Pupils are round and equally reacting to light. EOMI. No scleral icterus. No conjunctival pallor. Normocephalic, atraumatic. No pharyngeal erythema. No thyromegaly. CARDIOVASCULAR: S1 and S2 present. No murmurs, rubs, or gallops. PULMONARY: Chest is clear to auscultation, no wheezing or crackles. ABDOMEN: Soft, nontender, nondistended, normoactive bowel sounds. No palpable organomegaly. MUSCULOSKELETAL: No joint swelling or deformity. EXTREMITIES: No cyanosis, clubbing, or pedal edema. Left arm PICC line appears to be infected NEUROLOGICAL: Gross neurological examination did not reveal any focal deficits. SKIN: No rashes. - Labs CBC & Chem 7: 05/17/17 09:51 05/17/17 09:51 Labs: Microbiology - Last 24 Hours (Table) 05/14/17 07:02 Blood Culture Gram Stain - Preliminary Blood 05/13/17 08:33 Blood Culture - Preliminary Blood No Growth after 48 hours 05/11/17 07:53 Blood Culture Gram Stain - Final Blood Blood Culture - Final Escherichia coli Alpha Hemolytic Streptococcus Enterococcus faecium 05/14/17 07:32 Blood Culture - Preliminary Blood No Growth after 24 hours 05/14/17 07:02 Blood Culture - Final Blood Assessment and Plan Assessment: -Sepsis and bacteremia polymicrobial, PICC line removal pending -DVT in the past on anticoagulation -History of endocarditis and also osteomyelitis of the back. -Hypertension -Gastroesophageal reflux disease Plan: Continue current medication regime ,monitoring and symptomatic treatment. Follow cultures closely, antibiotics as per infectious disease. Follow closely with surgery, regarding removal of PICC line and placement of new central line tomorrow. The impression and plan of care has been dictated as directed. : I performed a history and examination of this patient, discussed the same with the dictator. I agree with the dictator's note ,documented as a scribe. Any additional findings or plans will be noted.
--- NOTE | 2017-05-22 16:20 | US ---
EXAMINATION TYPE: US venous doppler duplex UE LT DATE OF EXAM: 05/22/2017 COMPARISON: NONE CLINICAL HISTORY: 46-year-old male edema, vascular infection, DVT. SIDE PERFORMED: Left Technique: grayscale, color doppler, spectral doppler imaging performed of the deep veins of the left upper extremity. FINDINGS: Scanning performed of the internal jugular vein, axillary, brachial, and paired radial and ulnar vein s. Additional scanning of the superficial cephalic and basilic veins. Left Arm: Positive for DVT in mid brachial v, upper and lower brachial v negative for DVT. IMPRESSION: Exam positive for DVT in the mid left brachial vein.
--- NOTE | 2017-05-22 18:32 | P.PN ---
Subjective Progress Note Date: 05/22/17 Principal diagnosis: sepsis 46-year-old male well-known to the infectious disease service regarding his many hospitalizations. He's had multiple bouts of sepsis including PICC line related infections that were polymicrobial in nature. In the latter part of 2017 he was in the [facility] for potential abdominal wall reconstructive surgery. However because of the patient's many many infections he was deemed a very poor candidate even for biological mesh because of the risk of infection. Fortunately the abdominal wall is intact. He does have intermittent bouts of some discomfort. He then relates he started developing increasing amounts of back pain. He was seen by his surgeon at [facility]. 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 Then reports that he underwent a decompressive procedure isn't receiving intravenous antibiotic therapy with daptomycin and Tefloro. Patient chaz was doing relatively well until he had the sudden onset of increasing abdominal pain associated with nausea and emesis. He felt very poorly. At presentation he had evidence of high-grade fever some chills and appeared to have sepsis. With evidence of a positive blood culture for gram-negative bacilli infectious diseases consultation has been requested. Data from the outside hospital has been requested. This is to clarify his blood cultures, surgical cultures, and current inpatient intravenous antibiotic therapy. The patient has significant difficulties with IV access. At this facility and at [place] there have been difficulties with placement of his PICC lines. Other than his chronic back pain is stable. Fever and chills improved. Appetite is adequate. The laboratory is now related that in addition to the gram-positive and gram- negative bacterial infection there is evidence of yeast in the blood culture. Dr. Nova of surgery has been called and have placed temporary central line, with removal of his PICC line which is a source of his sepsis. Despite remove the PICC line we again have a possible culture for gram-positive cocci in chains. Likely enterococcus. Consulate the time of the call of the positive blood culture the antimicrobial therapy was altered from daptomycin to Zyvox. Once he has complete clearance of his sepsis than a Hinds catheter may be placed to complete his course of intravenous antibiotic therapy that will be required. Follow up blood cultures again positive now also with yeast. With the culture now again having yeast present despite antifungal therapy ultrasound to the left arm is requested to evaluate the prior PICC site. Of note arm has no swelling erythema or tenderness. However concerns to infection and clot at that site. Objective - Vital Signs Vital signs: Vital Signs Temp 97.2 F L 05/22/17 14:12 Pulse 105 H 05/22/17 14:12 Resp 16 05/22/17 14:12 BP 131/73 05/22/17 14:12 Pulse Ox 95 05/22/17 14:12 Intake & Output 05/21/17 05/22/17 05/22/17 18:59 06:59 18:59 Intake Total 474 840 220 Balance 474 840 220 Weight 81.647 kg Intake: Intake, IV Titration 300 Amount Linezolid 600 mg In 300 Dextrose/Water 1 300ml. bag @ 150 mls/hr IVPB Q12HR [facility] Rx#:[id number] Oral 474 540 220 Other: Voiding Method Toilet Toilet # Voids 2 1 - Exam 46-year-old male who is more comfortable at this time that admission. his back pain is stabilized. HEENT: Anicteric conjunctiva are pink and moist nasal mucosa grossly intact without significant lesions, there is no thrush. Does have evidence of the injury to his eye. Neck: The neck is supple without significant lymphadenopathy or thyromegaly. Surgical scar is well-healed the triple-lumen right IJ intact. Lungs: Good bilateral air entry without significant crackles or wheezing. There is no significant bronchial sounds. There is no egophony or dullness. Heart: Regular with an audible S1 and S2 no S3 soft S4 2/6 murmur left sternal border without radiation. PMI was nondisplaced Abdomen: Positive bowel sounds soft and without significant tenderness. No palpable masses or organomegaly. There is benefits of the extensive prior surgical interventions but the abdominal wall is intact without opening or drainage. Extremities: Left upper extremity prior PICC line site is without expressible purulence, no significant tenderness or ascending erythema. Right upper extremity reveals some swelling in the patient relates a recent deep venous thrombosis diagnosed at [place]. Confirmed here. Lower extremities have some trace edema. Spine shows evidence of the recent surgical interventions that are healing well some point tenderness but no bulge or purulence is seen. Patient is able to up and ambulate and has no other acute changes to his spine. Neuro: Awake alert oriented to person place and time. There are no acute new gross focal sensory motor deficits. - Labs CBC & Chem 7: 05/17/17 09:51 05/17/17 09:51 Labs: Microbiology - Last 24 Hours (Table) 05/21/17 11:00 Blood Culture Gram Stain - Preliminary Blood 05/21/17 11:00 Blood Culture - Final Blood 05/21/17 10:45 Blood Culture - Final Blood 05/21/17 11:00 Blood Culture Gram Stain - Preliminary Blood 05/19/17 23:00 Blood Culture - Preliminary Blood No Growth after 48 hours 05/19/17 00:15 Blood Culture Gram Stain - Final Blood Blood Culture - Final Enterococcus faecium Laboratory Results WBC 7.1 k/uL (3.8-10.6) 05/17/17 09:51 RBC 3.64 m/uL (4.30-5.90) L 05/17/17 09:51 Hgb 8.7 gm/dL (13.0-17.5) L 05/17/17 09:51 Hct 29.7 % (39.0-53.0) L 05/17/17 09:51 MCV 81.7 fL (80.0-100.0) 05/17/17 09:51 MCH 23.9 pg (25.0-35.0) L 05/17/17 09:51 MCHC 29.3 g/dL (31.0-37.0) L 05/17/17 09:51 RDW 20.4 % (11.5-15.5) H 05/17/17 09:51 Plt Count 365 k/uL (150-450) 05/17/17 09:51 Neutrophils % 66 % 05/14/17 07:02 Lymphocytes % 14 % 05/14/17 07:02 Monocytes % 5 % 05/14/17 07:02 Eosinophils % 13 % 05/14/17 07:02 Basophils % 0 % 05/14/17 07:02 Neutrophils # 3.0 k/uL (1.3-7.7) 05/14/17 07:02 Lymphocytes # 0.7 k/uL (1.0-4.8) L 05/14/17 07:02 Monocytes # 0.2 k/uL (0-1.0) 05/14/17 07:02 Eosinophils # 0.6 k/uL (0-0.7) 05/14/17 07:02 Basophils # 0.0 k/uL (0-0.2) 05/14/17 07:02 Manual Slide Review Performed 05/10/17 22:40 Hypochromasia Marked 05/17/17 09:51 Poikilocytosis Slight 05/17/17 09:51 Anisocytosis Moderate 05/17/17 09:51 Microcytosis Slight 05/17/17 09:51 PT 11.2 sec (9.0-12.0) 05/14/17 07:02 INR 1.2 (<1.2) H 05/14/17 07:02 APTT 90.4 sec (22.0-30.0) H 05/10/17 22:40 Sodium 137 mmol/L (137-145) 05/17/17 09:51 Potassium 3.6 mmol/L (3.5-5.1) 05/17/17 09:51 Chloride 102 mmol/L (98-107) 05/17/17 09:51 Carbon Dioxide 25 mmol/L (22-30) 05/17/17 09:51 Anion Gap 10 mmol/L 05/17/17 09:51 BUN 8 mg/dL (9-20) L 05/17/17 09:51 Creatinine 0.49 mg/dL (0.66-1.25) L 05/17/17 09:51 Est GFR (MDRD) Af Amer >60 (>60 ml/min/1.73 sqM) 05/17/17 09:51 Est GFR (MDRD) Non-Af >60 (>60 ml/min/1.73 sqM) 05/17/17 09:51 Glucose 187 mg/dL (74-99) H 05/17/17 09:51 Calcium 9.5 mg/dL (8.4-10.2) 05/17/17 09:51 Phosphorus 3.8 mg/dL (2.5-4.5) 05/10/17 22:40 Magnesium 1.8 mg/dL (1.6-2.3) 05/14/17 07:02 Total Bilirubin 0.3 mg/dL (0.2-1.3) 05/11/17 09:16 AST 14 U/L (17-59) L 05/11/17 09:16 ALT 26 U/L (21-72) 01/08/18 09:16 Alkaline Phosphatase 184 U/L (38-126) H 05/11/17 09:16 Total Creatine Kinase <20 U/L (55-170) L 05/10/17 22:40 CK-MB (CK-2) 0.5 ng/mL (0.0-2.4) 05/10/17 22:40 CK-MB (CK-2) Rel Index 05/10/17 22:40 Troponin I <0.012 ng/mL (0.000-0.034) 05/10/17 22:40 Total Protein 7.4 g/dL (6.3-8.2) 05/11/17 09:16 Albumin 3.2 g/dL (3.5-5.0) L 05/11/17 09:16 Microbiology 05/21/17 11:00 Blood Blood Culture Gram Stain - Preliminary 05/21/17 11:00 Blood Blood Culture - Final 05/21/17 10:45 Blood Blood Culture - Final 05/21/17 11:00 Blood Blood Culture Gram Stain - Preliminary 05/19/17 23:00 Blood Blood Culture - Preliminary No Growth after 48 hours 05/19/17 00:15 Blood Blood Culture Gram Stain - Final 05/19/17 00:15 Blood Blood Culture - Final Enterococcus faecium 05/19/17 00:15 Blood Blood Culture - Final 05/13/17 08:33 Blood Blood Culture - Final No Growth after 144 hours 05/16/17 13:18 Picc Line Catheter Tip Culture - Final 05/14/17 07:02 Blood Blood Culture Gram Stain - Final 05/14/17 07:02 Blood Blood Culture - Final Enterococcus faecium 05/14/17 07:32 Blood Blood Culture Gram Stain - Final Yeast species 05/14/17 07:32 Blood Blood Culture - Final Alecia albicans 05/14/17 07:32 Blood Blood Culture - Final 05/11/17 07:53 Blood Blood Culture Gram Stain - Final 05/11/17 07:53 Blood Blood Culture - Final Escherichia coli Alpha Hemolytic Streptococcus Enterococcus faecium 05/14/17 07:02 Blood Blood Culture - Final 05/12/17 10:45 Urine,Clean Catch Urine Culture - Final 05/12/17 07:45 Blood Blood Culture - Final Doppler left arm shows evidence of the extensive clot Assessment and Plan (1) Gram negative sepsis Narrative/Plan: 46 year male who is a very complicated and convoluted past medical history presents to the emergency center for further evaluation. He was having nausea and emesis and acute abdominal pain. This is now improved since he's been hydrated and received antibiotic therapy. Based on prior cultures antibiotic therapy at this time is been utilized with daptomycin and levofloxacin has been added based on his prior cultures. Cultures now available in the Levaquin is transitioned to cefepime to cover the drug resistant E. coli. Daptomycin continues. He is feeling better his fevers have improved. Data from [facility] is required as to recent surgery, recent blood and wound cultures, and clarification of his antibiotic therapy. As noted blood cultures are with Enterococcus faecalis, E. coli and the cefepime and daptomycin were being utilized. However new laboratories: The positive blood culture with yeast. With this micafungin was added. There is evidence of another positive blood culture. Appears to be failing daptomycin. Will be changed to Zyvox. Has gentamicin ALLERGY. Further blood cultures are requested. Fortunately he is feeling relatively well fever is resolved, PICC line removed and right IJ central line has been placed. Once his bacteremia is cleared a more permanent IV access can then be placed. Patient is responding to therapy with improvement of fever or leukocytosis. Continues to have his ongoing back pain. No worsening. Case is discussed the primary care physician. It does appear that he has PICC line sepsis in the back infection is stable. Patient's had a marked improvement since removal of his PICC line. Pain control appears to be adequate Encouraged for her protein intake. Abdominal binder in place Is noted laboratories again called another blood culture that is positive for gram-positive cocci as well as yeast. With this imaging to the left arm is performed although there is no significant swelling concern would be to clot and infection to the venous system of the left arm. 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 We have arranged for a vascular surgeon to see the patient. This will not occur at our facility and to be transferred to [place] with a line was placed for further intervention. This is discussed with the primary service. The patient is well aware and understands the need for transfer. Current Visit: Yes Status: Acute Code(s): A41.50 - GRAM-NEGATIVE SEPSIS, UNSPECIFIED SNOMED Code(s): 724493652 (2) Back pain Current Visit: No Status: Acute Code(s): M54.9 - DORSALGIA, UNSPECIFIED SNOMED Code(s): 569533178 (3) Fever Current Visit: No Status: Acute Priority: High Code(s): R50.9 - FEVER, UNSPECIFIED SNOMED Code(s): 840024151 (4) Hernia of abdominal wall Current Visit: Yes Status: Acute Code(s): K43.9 - VENTRAL HERNIA WITHOUT OBSTRUCTION OR GANGRENE SNOMED Code(s): 260491741
[2017-05-22] MEDS: APIXABAN 5 MG TAB PO SCH (20:57)
[2017-05-23] MEDS: HYDROmorphone 2 MG TAB PO PRN ×7 (01:06→23:20)
[2017-05-23] MEDS: CEFEPIME 2 GM in SODIUM CHLORIDE 0.9% 50 ML IVPB SCH ×3 (01:07→16:25)
[2017-05-23 05:42] LABS: Anisocytosis Moderate; HCT 30.5 % (39.0-53.0); HGB 9.1 gm/dL (13.0-17.5); Hypochromasia Marked; MCV 80.2 fL (80.0-100.0); Mean Platelet Volume 6.3; Microcytosis Slight; Platelet Count 328 k/uL (150-450); RBC 3.81 m/uL (4.30-5.90); RDW 20.5 % (11.5-15.5); WBC 6.2 k/uL (3.8-10.6)
[2017-05-23 05:50] LABS: Anion Gap 11 mmol/L; Blood Urea Nitrogen 9 mg/dL (9-20); Calcium 9.9 mg/dL (8.4-10.2); Carbon Dioxide 29 mmol/L (22-30); Chloride 99 mmol/L (98-107); Glucose 194 mg/dL (74-99); Magnesium 1.5 mg/dL (1.6-2.3); Potassium 4.3 mmol/L (3.5-5.1); Sodium 139 mmol/L (137-145)
[2017-05-23] MEDS: LISINOPRIL 20 MG TAB PO SCH ×2 (08:21→21:25)
[2017-05-23] MEDS: APIXABAN 5 MG TAB PO SCH ×2 (08:21→21:25)
[2017-05-23] MEDS: MAGNESIUM SULFATE-D5W PMX 1 GM in DEXTROSE/WATER 1 100ML.BAG IVPB SCH ×2 (08:21→09:51)
[2017-05-23] MEDS: PANTOPRAZOLE 40 MG TABLET PO SCH ×2 (08:21→18:17)
[2017-05-23] MEDS: AMMONIUM LACTATE 12% LOTION 225 GM BTL TOPICAL SCH (08:22)
[2017-05-23] MEDS: MICAFUNGIN 100 MG in SODIUM CHLORIDE 0.9% 100 ML IVPB SCH (09:12)
[2017-05-23] MEDS: LINEZOLID 600 MG in DEXTROSE/WATER 1 300ML.BAG IVPB SCH ×2 (10:51→21:25)
[2017-05-23] MEDS: tiZANidine 4 MG TAB PO PRN (12:26)
[2017-05-23] MEDS ORDERED: hydrALAZINE HCL 20 MG/ML 1 ML VIAL IVP PRN (16:46)
[2017-05-23] MEDS ORDERED: cloNIDine HCL 0.1 MG TAB PO PRN (16:46)
--- NOTE | 2017-05-23 17:40 | PN ---
PROGRESS NOTE DATE OF SERVICE: 05/23/2017 This 46-year-old gentleman with a past history of multiple medical problems, admitted with sepsis. The patient had multiple blood cultures grown, including Enterococcus faecium, Alecia albicans as well as 1 culture of alpha hemolytic Streptococcus. The patient also had a left mid brachial thrombus and PICC line was removed from the same arm. Because of the candidemia, the possibility of mycotic aneurysm is being considered and Dr. Amaral of infectious disease has recommended to a full tertiary care center and possible vascular surgery intervention and removal of the mycotic aneurysm and brachial vein as well. PAST MEDICAL HISTORY: Reviewed. REVIEW OF SYSTEMS: CARDIOVASCULAR: No angina, palpitations. RESPIRATORY: As mentioned earlier. GI: As mentioned earlier. : No dysuria. NERVOUS: No numbness or weakness. CURRENT MEDICATIONS ARE: 1. Eliquis 5 mg p.o. b.i.d. 3. Catapres 0.1 q.4h p.r.n. 4. Duragesic patch. 5. Apresoline. 6. Dilaudid. 8. Linezolid. 9. Zestril. 10.Micafungin. 11.Zofran. 12.Protonix. 13.MiraLAX. 14.Zanaflex. PHYSICAL EXAM: Patient is alert, oriented x3. Pulse 75, blood pressure 184/108, respirations 16, temperature 97.1, pulse ox 98% on room air. HEENT: Conjunctivae normal. Oral mucosa moist. NECK: No jugular venous distention. No carotid bruits. No lymph node enlargement. CARDIOVASCULAR: S1, S2 muffled. RESPIRATORY: Breath sounds diminished in the bases. No rhonchi. No crackles. ABDOMEN: Soft, nontender. No mass palpable. LEGS: No edema. No swelling. NERVOUS SYSTEM: No focal deficits. Status post PICC line removal on the left forearm. SKIN: No ulcer, rash, bleeding. LAB: WBC 6.2, hemoglobin is 9.1. ASSESSMENT: 1. Sepsis with Alecia albicans and as well as Enterococcus faecium. 2. Status post percutaneously inserted central catheter line removal. 3. 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 4. History of deep venous thrombosis in the past. 5. 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 6. Hypertension. 7. Gastroesophageal reflux disease. RECOMMENDATIONS AND DISCUSSION: In this 46-year-old gentleman who presented with multiple complex medical issues , monitor the patient closely, continue the current medical management and continue symptomatic treatment. I would recommend continue with broad-spectrum IV antibiotics, antifungals, closely follow with Infectious Disease. Otherwise, prognosis guarded. Discussed with Vascular Surgery and recommended a tertiary care center evaluation. I have called [facility] Transfer Team and discussed the case at length at length and they will evaluate and let us know. Prognosis guarded once again and see orders for further details. Further recommendations to follow. MMODL / IJN: [id number] / MTDD
[2017-05-24] LABS: Prothrombin Time 10.1 sec (9.0-12.0)
[2017-05-24] MEDS: CEFEPIME 2 GM in SODIUM CHLORIDE 0.9% 50 ML IVPB SCH ×4 (00:53→23:16)
[2017-05-24] MEDS: HYDROmorphone 2 MG TAB PO PRN ×6 (02:46→23:13)
[2017-05-24] MEDS: LISINOPRIL 20 MG TAB PO SCH ×2 (08:44→19:47)
[2017-05-24] MEDS: PANTOPRAZOLE 40 MG TABLET PO SCH ×2 (08:44→17:47)
[2017-05-24] MEDS: APIXABAN 5 MG TAB PO SCH ×2 (08:44→19:47)
[2017-05-24] MEDS: AMMONIUM LACTATE 12% LOTION 225 GM BTL TOPICAL SCH (08:45)
[2017-05-24] MEDS: MICAFUNGIN 100 MG in SODIUM CHLORIDE 0.9% 100 ML IVPB SCH (09:47)
[2017-05-24] MEDS: LINEZOLID 600 MG in DEXTROSE/WATER 1 300ML.BAG IVPB SCH ×2 (10:58→19:48)
[2017-05-24] MEDS ORDERED: MAGNESIUM SULFATE-D5W PMX 1 GM in DEXTROSE/WATER 1 100ML.BAG IVPB SCH (12:00)
[2017-05-24] MEDS: MAGNESIUM SULFATE-D5W PMX 1 GM in DEXTROSE/WATER 1 100ML.BAG IVPB SCH ×2 (13:14→14:27)
[2017-05-24 14:40] LABS: Appearance,Urine Clear (Clear); Bilirubin,Urine Negative (Negative); Blood,Urine Negative (Negative); Color,Urine Colorless; Glucose,Urine (UA) Negative (Negative); Ketones,Urine Negative (Negative); Leukocyte Esterase,Urine Negative (Negative); Nitrite,Urine Negative (Negative); Protein,Urine Negative (Negative); Specific Gravity,Urine 1.002 (1.001-1.035); Urobilinogen,Urine <2.0 mg/dL (<2.0)
[2017-05-24] MEDS: tiZANidine 4 MG TAB PO PRN (15:28)
[2017-05-25] MEDS: HYDROmorphone 2 MG TAB PO PRN ×6 (02:18→21:03)
[2017-05-25 07:14] LABS: Anisocytosis Slight; Basophils # (A) 0.1 k/uL (0-0.2); Basophils % (A) 1 %; Eosinophils # (A) 0.9 k/uL (0-0.7); Eosinophils % (A) 13 %; HCT 33.9 % (39.0-53.0); HGB 10.6 gm/dL (13.0-17.5); Hypochromasia Marked; Lymphocytes # (A) 1.7 k/uL (1.0-4.8); Lymphocytes % (A) 23 %; MCH 24.1 pg (25.0-35.0); MCHC 31.2 g/dL (31.0-37.0); MCV 77.2 fL (80.0-100.0); Mean Platelet Volume 7.4; Microcytosis Moderate; Monocytes # (A) 0.4 k/uL (0-1.0); Monocytes % (A) 5 %; Neutrophils % (A) 55 %; Platelet Count 391 k/uL (150-450); Poikilocytosis Slight; RBC 4.39 m/uL (4.30-5.90); RDW 19.2 % (11.5-15.5); WBC 7.2 k/uL (3.8-10.6)
[2017-05-25 07:26] LABS: Anion Gap 14 mmol/L; Blood Urea Nitrogen 12 mg/dL (9-20); Calcium 10.5 mg/dL (8.4-10.2); Carbon Dioxide 25 mmol/L (22-30); Chloride 100 mmol/L (98-107); Glucose 171 mg/dL (74-99); Magnesium 1.7 mg/dL (1.6-2.3); Potassium 4.6 mmol/L (3.5-5.1); Sodium 139 mmol/L (137-145)
[2017-05-25] MEDS: LISINOPRIL 20 MG TAB PO SCH ×2 (08:04→21:04)
[2017-05-25] MEDS: APIXABAN 5 MG TAB PO SCH ×2 (08:04→21:04)
[2017-05-25] MEDS: CEFEPIME 2 GM in SODIUM CHLORIDE 0.9% 50 ML IVPB SCH ×2 (08:04→15:00)
[2017-05-25] MEDS: PANTOPRAZOLE 40 MG TABLET PO SCH ×2 (08:04→17:03)
[2017-05-25] MEDS: AMMONIUM LACTATE 12% LOTION 225 GM BTL TOPICAL SCH (08:16)
[2017-05-25] MEDS: MICAFUNGIN 100 MG in SODIUM CHLORIDE 0.9% 100 ML IVPB SCH (09:02)
[2017-05-25] MEDS: LINEZOLID 600 MG in DEXTROSE/WATER 1 300ML.BAG IVPB SCH ×2 (10:05→21:04)
[2017-05-25 13:41] LABS: Urine Alcohol Negative (Negative); Urine Barbiturate Negative (Negative); Urine Cocaine Negative (Negative); Urine Methadone Negative (Negative); Urine Opiates Negative (Negative); Urine Phencyclidine Negative (Negative)
--- NOTE | 2017-05-25 16:42 | PN ---
PROGRESS NOTE DATE OF SERVICE: 05/25/2017 This 46 -year-old gentleman admitted with sepsis and candidemia also had recently PICC line removed. 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 No chest pain. No palpitations. No fever. The most recent blood cultures are negative but otherwise the multiple cultures positive for Alecia albicans. EXAM: Alert and oriented x3. The pulse is 93, blood pressure 130/90, respiration 16, temperature 97.1, pulse ox 97% on room air. HEENT: Conjunctivae normal. NECK: No jugular venous distention. Cardiovascular: S1, S2 muffled. RESPIRATORY: Breath sounds diminished in the bases. No rhonchi. No crackles. Abdomen is soft, nontender. Legs are no edema. No swelling. Central nervous system: No focal deficits. LAB STUDIES: At this time shows WBC 7.2, hemoglobin 10.6, calcium is 10.5. ASSESSMENT: 1. Sepsis with Alecia albicans persistent with Enterococcus faecium. 2. 3. Status post PICC line catheter insertion of the left arm and removal. 4. 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 5. History of deep vein thrombosis in the past. 6. Endocarditis and osteomyelitis in the back in the past. 7. Hypertension. 8. Gastroesophageal reflux disease. RECOMMENDATIONS AND DISCUSSION: Recommend to continue current medications, management and symptomatic treatment. Otherwise, at this time, I recommend continue with the current medications, continue symptomatic treatment. Await input from [facility] and also closely follow with Infectious Disease. Prognosis guarded. Discussed with the patient, understands and agrees. Further recommendations to follow. MMODL / IJN: [id number] /
--- NOTE | 2017-05-25 16:49 | PN ---
PROGRESS NOTE DATE OF SERVICE: 05/24/2017. This 46-year-old gentleman admitted with sepsis with Alecia albicans and Enterococcus faecium is being closely monitored at this time. We have talked to [facility] and yet to hear back from them regarding a possible potential transfer. Also please note the staff notes overnight happened regarding the incident with syringe in his neck. No chest pain. No palpitations. No fever. EXAM: Alert and oriented x3. Pulse 93, blood pressure 130/90, respirations 16, temperature 97.1, pulse ox 98% room air. HEENT: Conjunctivae normal. NECK: No jugular venous distention. CARDIOVASCULAR: S1, S2. RESPIRATORY: Breath sounds diminished in the bases. No rhonchi, no crackles. ABDOMEN: Soft, nontender. No mass palpable. LEGS: No edema. No swelling. NERVOUS SYSTEM: No focal deficits. LABS: At this time shows WBC 7.2, hemoglobin 10.6, and calcium is 10.5. ASSESSMENT: 1. Sepsis with Alecia albicans as well as Enterococcus faecium. 2. Status post PICC line on the left arm and removal. 3. 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 4. History of DVT in the past. 5. 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 6. Hypertension. 7. Gastroesophageal reflux disease. DISCUSSION AND RECOMMENDATIONS: In this 46-year-old gentleman who presented with multiple complex medical issues. At this time, we will monitor the patient closely, continue the current management and symptomatic treatment. Otherwise continue the antibiotics. Await reply from [facility]. Further recommendations to follow. Magnesium has been corrected. MMODL / IJN: [id number] /
--- NOTE | 2017-05-25 23:04 | P.PN ---
Subjective Progress Note Date: 05/25/17 Principal diagnosis: sepsis 46-year-old male well-known to the infectious disease service regarding his many hospitalizations. He's had multiple bouts of sepsis including PICC line related infections that were polymicrobial in nature. In the latter part of 2017 he was in the [facility] for potential abdominal wall reconstructive surgery. However because of the patient's many many infections he was deemed a very poor candidate even for biological mesh because of the risk of infection. Fortunately the abdominal wall is intact. He does have intermittent bouts of some discomfort. He then relates he started developing increasing amounts of back pain. He was seen by his surgeon at [facility]. 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 Then reports that he underwent a decompressive procedure isn't receiving intravenous antibiotic therapy with daptomycin and Tefloro. Patient chaz was doing relatively well until he had the sudden onset of increasing abdominal pain associated with nausea and emesis. He felt very poorly. At presentation he had evidence of high-grade fever some chills and appeared to have sepsis. With evidence of a positive blood culture for gram-negative bacilli infectious diseases consultation has been requested. Data from the outside hospital has been requested. This is to clarify his blood cultures, surgical cultures, and current inpatient intravenous antibiotic therapy. The patient has significant difficulties with IV access. At this facility and at [place] there have been difficulties with placement of his PICC lines. Other than his chronic back pain is stable. Fever and chills improved. Appetite is adequate. The laboratory is now related that in addition to the gram-positive and gram- negative bacterial infection there is evidence of yeast in the blood culture. Dr. Nova of surgery has been called and have placed temporary central line, with removal of his PICC line which is a source of his sepsis. Despite remove the PICC line we again have a possible culture for gram-positive cocci in chains. Likely enterococcus. Consulate the time of the call of the positive blood culture the antimicrobial therapy was altered from daptomycin to Zyvox. Once he has complete clearance of his sepsis than a Hinds catheter may be placed to complete his course of intravenous antibiotic therapy that will be required. Follow up blood cultures again positive now also with yeast. With the culture now again having yeast present despite antifungal therapy ultrasound to the left arm is requested to evaluate the prior PICC site. Of note arm has no swelling erythema or tenderness. 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 We had no ability to transfer to an outside hospital. Nursing staff relate that a 3 mL syringe was attached to his triple-lumen catheter over the weekend. Nursing staff unable to recall or relate how it got there. Concerns ongoing infection the triple-lumen catheter was removed and IV was placed into his right arm. Syringe was not sent for evaluation, and drug screen was negative. Objective - Vital Signs Vital signs: Vital Signs Temp 96.7 F L 05/25/17 20:00 Pulse 120 H 05/25/17 20:00 Resp 16 05/25/17 20:00 BP 129/95 05/25/17 20:00 Pulse Ox 96 05/25/17 20:00 Intake & Output 05/25/17 05/25/17 05/26/17 06:59 18:59 06:59 Intake Total 350 Balance 350 Intake: Intake, IV Titration 350 Amount Cefepime 2 gm In Sodium 50 Chloride 0.9% 50 ml @ 100 mls/hr IVPB Q8HR [facility] Rx# :[id number] Linezolid 600 mg In 300 Dextrose/Water 1 300ml. bag @ 150 mls/hr IVPB Q12HR [facility] Rx#:[id number] Other: Voiding Method Toilet Toilet Toilet # Voids 4 - Exam 46-year-old male who is more comfortable at this time that admission. his back pain is stabilized. HEENT: Anicteric conjunctiva are pink and moist nasal mucosa grossly intact without significant lesions, there is no thrush. Does have evidence of the injury to his eye. Neck: The neck is supple without significant lymphadenopathy or thyromegaly. Surgical scar is well-healed, the triple-lumen right IJ removed. Lungs: Good bilateral air entry without significant crackles or wheezing. There is no significant bronchial sounds. There is no egophony or dullness. Heart: Regular with an audible S1 and S2 no S3 soft S4 2/6 murmur left sternal border without radiation. PMI was nondisplaced Abdomen: Positive bowel sounds soft and without significant tenderness. No palpable masses or organomegaly. There is benefits of the extensive prior surgical interventions but the abdominal wall is intact without opening or drainage. Extremities: Left upper extremity prior PICC line site is without expressible purulence, no significant tenderness or ascending erythema. Right upper extremity reveals some swelling in the patient relates a recent deep venous thrombosis diagnosed at [place]. Confirmed here. Lower extremities have some trace edema. Spine shows evidence of the recent surgical interventions that are healing well some point tenderness but no bulge or purulence is seen. Patient is able to up and ambulate and has no other acute changes to his spine. Neuro: Awake alert oriented to person place and time. There are no acute new gross focal sensory motor deficits. - Labs CBC & Chem 7: 05/25/17 06:53 05/25/17 06:53 Labs: Abnormal Lab Results - Last 24 Hours (Table) 05/25/17 05/25/17 Range/Units 06:53 06:53 Hgb 10.6 L (13.0-17.5) gm/dL Hct 33.9 L (39.0-53.0) % MCV 77.2 L (80.0-100.0) fL MCH 24.1 L (25.0-35.0) pg RDW 19.2 H (11.5-15.5) % Eosinophils # 0.9 H (0-0.7) k/uL Creatinine 0.64 L (0.66-1.25) mg/dL Glucose 171 H (74-99) mg/dL Calcium 10.5 H (8.4-10.2) mg/dL Microbiology - Last 24 Hours (Table) 05/21/17 11:00 Blood Culture Gram Stain - Final Blood Blood Culture - Final Alecia albicans Alpha Hemolytic Streptococcus 05/22/17 10:27 Blood Culture - Preliminary Blood No Growth after 72 hours 05/24/17 00:20 Catheter Tip Culture - Preliminary Catheter Tip 05/23/17 05:15 Blood Culture - Preliminary Blood No Growth after 48 hours 05/19/17 23:00 Blood Culture - Preliminary Blood No Growth after 120 hours Laboratory Results WBC 7.2 k/uL (3.8-10.6) 05/25/17 06:53 RBC 4.39 m/uL (4.30-5.90) 05/25/17 06:53 Hgb 10.6 gm/dL (13.0-17.5) L 05/25/17 06:53 Hct 33.9 % (39.0-53.0) L 05/25/17 06:53 MCV 77.2 fL (80.0-100.0) L 05/25/17 06:53 MCH 24.1 pg (25.0-35.0) L 05/25/17 06:53 MCHC 31.2 g/dL (31.0-37.0) 05/25/17 06:53 RDW 19.2 % (11.5-15.5) H 05/25/17 06:53 Plt Count 391 k/uL (150-450) 05/25/17 06:53 Neutrophils % 55 % 05/25/17 06:53 Lymphocytes % 23 % 05/25/17 06:53 Monocytes % 5 % 05/25/17 06:53 Eosinophils % 13 % 05/25/17 06:53 Basophils % 1 % 05/25/17 06:53 Neutrophils # 4.0 k/uL (1.3-7.7) 05/25/17 06:53 Lymphocytes # 1.7 k/uL (1.0-4.8) 05/25/17 06:53 Monocytes # 0.4 k/uL (0-1.0) 05/25/17 06:53 Eosinophils # 0.9 k/uL (0-0.7) H 05/25/17 06:53 Basophils # 0.1 k/uL (0-0.2) 05/25/17 06:53 Manual Slide Review Performed 05/10/17 22:40 Hypochromasia Marked 05/25/17 06:53 Poikilocytosis Slight 05/25/17 06:53 Anisocytosis Slight 05/25/17 06:53 Microcytosis Moderate 05/25/17 06:53 PT 10.1 sec (9.0-12.0) 05/23/17 05:15 INR 1.0 (<1.2) 05/23/17 05:15 APTT 90.4 sec (22.0-30.0) H 05/10/17 22:40 Sodium 139 mmol/L (137-145) 05/25/17 06:53 Potassium 4.6 mmol/L (3.5-5.1) 05/25/17 06:53 Chloride 100 mmol/L (98-107) 05/25/17 06:53 Carbon Dioxide 25 mmol/L (22-30) 05/25/17 06:53 Anion Gap 14 mmol/L 05/25/17 06:53 BUN 12 mg/dL (9-20) 05/25/17 06:53 Creatinine 0.64 mg/dL (0.66-1.25) L 05/25/17 06:53 Est GFR (MDRD) Af Amer >60 (>60 ml/min/1.73 sqM) 05/25/17 06:53 Est GFR (MDRD) Non-Af >60 (>60 ml/min/1.73 sqM) 05/25/17 06:53 Glucose 171 mg/dL (74-99) H 05/25/17 06:53 Calcium 10.5 mg/dL (8.4-10.2) H 05/25/17 06:53 Phosphorus 3.8 mg/dL (2.5-4.5) 05/10/17 22:40 Magnesium 1.7 mg/dL (1.6-2.3) 05/25/17 06:53 Total Bilirubin 0.3 mg/dL (0.2-1.3) 05/11/17 09:16 AST 14 U/L (17-59) L 05/11/17 09:16 ALT 26 U/L (21-72) 05/11/17 09:16 Alkaline Phosphatase 184 U/L (38-126) H 05/11/17 09:16 Total Creatine Kinase <20 U/L (55-170) L 05/10/17 22:40 CK-MB (CK-2) 0.5 ng/mL (0.0-2.4) 05/10/17 22:40 CK-MB (CK-2) Rel Index 05/10/17 22:40 Troponin I <0.012 ng/mL (0.000-0.034) 05/10/17 22:40 Total Protein 7.4 g/dL (6.3-8.2) 05/11/17 09:16 Albumin 3.2 g/dL (3.5-5.0) L 05/11/17 09:16 Urine Color Colorless 05/24/17 14:25 Urine Appearance Clear (Clear) 05/24/17 14:25 Urine pH 7.0 (5.0-8.0) 05/24/17 14:25 Ur Specific [place] 1.002 (1.001-1.035) 05/24/17 14:25 Urine Protein Negative (Negative) 05/24/17 14:25 Urine Glucose (UA) Negative (Negative) 05/24/17 14:25 Urine Ketones Negative (Negative) 05/24/17 14:25 Urine Blood Negative (Negative) 05/24/17 14:25 Urine Nitrite Negative (Negative) 05/24/17 14:25 Urine Bilirubin Negative (Negative) 05/24/17 14:25 Urine Urobilinogen <2.0 mg/dL (<2.0) 05/24/17 14:25 Ur Leukocyte Esterase Negative (Negative) 05/24/17 14:25 Ur Random Creatinine 11.7 mg/dL 05/24/17 14:25 Urine Opiates Screen Negative ng/mL (Negative) 05/24/17 14:25 Urine Methadone Screen Negative ng/mL (Negative) 05/24/17 14:25 Ur Propoxyphene Screen Negative ng/mL (Negative) 05/24/17 14:25 Urine Barbiturates Negative ng/mL (Negative) 05/24/17 14:25 Ur Phencyclidine Scrn Negative ng/mL (Negative) 05/24/17 14:25 Ur Amphetamine Screen Negative ng/mL (Negative) 05/24/17 14:25 U Benzodiazepines Scrn Negative ng/mL (Negative) 05/24/17 14:25 Urine Cocaine Screen Negative ng/mL (Negative) 05/24/17 14:25 U Cannabinoids Screen Negative ng/mL (Negative) 05/24/17 14:25 Urine Alcohol Negative mg/dL (Negative) 05/24/17 14:25 Microbiology 05/21/17 11:00 Blood Blood Culture Gram Stain - Final 05/21/17 11:00 Blood Blood Culture - Final Alecia albicans Alpha Hemolytic Streptococcus 05/22/17 10:27 Blood Blood Culture - Preliminary No Growth after 72 hours 05/24/17 00:20 Catheter Tip Catheter Tip Culture - Preliminary 05/23/17 05:15 Blood Blood Culture - Preliminary No Growth after 48 hours 05/19/17 23:00 Blood Blood Culture - Preliminary No Growth after 120 hours 05/21/17 11:00 Blood Blood Culture Gram Stain - Final 05/21/17 11:00 Blood Blood Culture - Final Alecia albicans 05/21/17 11:00 Blood Blood Culture - Final 05/21/17 10:45 Blood Blood Culture - Final 05/19/17 00:15 Blood Blood Culture Gram Stain - Final 05/19/17 00:15 Blood Blood Culture - Final Enterococcus faecium 05/19/17 00:15 Blood Blood Culture - Final 05/13/17 08:33 Blood Blood Culture - Final No Growth after 144 hours 05/16/17 13:18 Picc Line Catheter Tip Culture - Final 05/14/17 07:02 Blood Blood Culture Gram Stain - Final 05/14/17 07:02 Blood Blood Culture - Final Enterococcus faecium 05/14/17 07:32 Blood Blood Culture Gram Stain - Final Yeast species 05/14/17 07:32 Blood Blood Culture - Final Alecia albicans 05/14/17 07:32 Blood Blood Culture - Final 05/11/17 07:53 Blood Blood Culture Gram Stain - Final 05/11/17 07:53 Blood Blood Culture - Final Escherichia coli Alpha Hemolytic Streptococcus Enterococcus faecium 05/14/17 07:02 Blood Blood Culture - Final 05/12/17 10:45 Urine,Clean Catch Urine Culture - Final 05/12/17 07:45 Blood Blood Culture - Final Assessment and Plan (1) Gram negative sepsis Narrative/Plan: 46 year male who is a very complicated and convoluted past medical history presents to the emergency center for further evaluation. He was having nausea and emesis and acute abdominal pain. This is now improved since he's been hydrated and received antibiotic therapy. Based on prior cultures antibiotic therapy at this time is been utilized with daptomycin and levofloxacin has been added based on his prior cultures. Cultures now available in the Levaquin is transitioned to cefepime to cover the drug resistant E. coli. Daptomycin continues. He is feeling better his fevers have improved. Data from [facility] is required as to recent surgery, recent blood and wound cultures, and clarification of his antibiotic therapy. As noted blood cultures are with Enterococcus faecalis, E. coli and the cefepime and daptomycin were being utilized. However new laboratories: The positive blood culture with yeast. With this micafungin was added. There is evidence of another positive blood culture. Appears to be failing daptomycin. Will be changed to Zyvox. Has gentamicin ALLERGY. Further blood cultures are requested. Fortunately he is feeling relatively well fever is resolved, PICC line removed and right IJ central line has been placed. Patient's had a marked improvement since removal of his PICC line. Pain control appears to be adequate Encouraged for improved protein intake. Abdominal binder in place He has noted there were further positive blood cultures. For now we have negative blood cultures at 24 and 48 hours. There was an event with his IJ catheter over the weekend but drug screen is negative. The patient will require long-term antibiotic therapy. If we evidence of negative blood cultures in the morning surgery within be able to hopefully place a Hinds catheter to complete his course of therapy over the next nearly 40 days for his polymicrobial infection. He is instructed that after his discharge if he is a further difficulties with infection" his left arm he should report to his prior hospital which is [place]. This is where his surgery was performed and is PICC line was placed that became infected and is noted they refused to accept him on transfer despite their prior relationship and care provided. Current Visit: Yes Status: Acute Code(s): A41.50 - GRAM-NEGATIVE SEPSIS, UNSPECIFIED SNOMED Code(s): 462197555 (2) Back pain Current Visit: No Status: Acute Code(s): M54.9 - DORSALGIA, UNSPECIFIED SNOMED Code(s): 397341259 (3) Fever Current Visit: No Status: Acute Priority: High Code(s): R50.9 - FEVER, UNSPECIFIED SNOMED Code(s): 143955492 (4) Hernia of abdominal wall Current Visit: Yes Status: Acute Code(s): K43.9 - VENTRAL HERNIA WITHOUT OBSTRUCTION OR GANGRENE SNOMED Code(s): 063152438
[2017-05-26] MEDS: HYDROmorphone 2 MG TAB PO PRN ×6 (00:10→20:28)
[2017-05-26] MEDS: CEFEPIME 2 GM in SODIUM CHLORIDE 0.9% 50 ML IVPB SCH ×3 (01:36→19:23)
[2017-05-26 07:25] LABS: Anisocytosis Slight; Basophils # (A) 0.1 k/uL (0-0.2); Basophils % (A) 1 %; Eosinophils % (A) 11 %; HGB 11.5 gm/dL (13.0-17.5); Hypochromasia Marked; Lymphocytes # (A) 2.2 k/uL (1.0-4.8); Lymphocytes % (A) 25 %; MCH 24.2 pg (25.0-35.0); MCHC 30.3 g/dL (31.0-37.0); Mean Platelet Volume 6.4; Microcytosis Slight; Monocytes # (A) 0.4 k/uL (0-1.0); Monocytes % (A) 4 %; Neutrophils # (A) 4.9 k/uL (1.3-7.7); Neutrophils % (A) 57 %; Platelet Count 489 k/uL (150-450); Poikilocytosis Slight; RBC 4.75 m/uL (4.30-5.90); RDW 17.8 % (11.5-15.5); WBC 8.7 k/uL (3.8-10.6)
[2017-05-26 07:49] LABS: Anion Gap 16 mmol/L; Blood Urea Nitrogen 14 mg/dL (9-20); Carbon Dioxide 24 mmol/L (22-30); Chloride 99 mmol/L (98-107); Glucose 181 mg/dL (74-99); Potassium 4.9 mmol/L (3.5-5.1); Sodium 139 mmol/L (137-145)
[2017-05-26] MEDS: PANTOPRAZOLE 40 MG TABLET PO SCH ×2 (10:36→19:23)
[2017-05-26] MEDS: APIXABAN 5 MG TAB PO SCH ×2 (10:37→20:28)
[2017-05-26] MEDS: AMMONIUM LACTATE 12% LOTION 225 GM BTL TOPICAL SCH (10:38)
[2017-05-26] MEDS: LISINOPRIL 20 MG TAB PO SCH ×2 (10:39→20:28)
[2017-05-26] MEDS: MICAFUNGIN 100 MG in SODIUM CHLORIDE 0.9% 100 ML IVPB SCH (11:56)
[2017-05-26] MEDS: ONDANSETRON 4 MG/2 ML VIAL IVP PRN (11:56)
--- NOTE | 2017-05-26 12:03 | P.PN ---
Subjective Patient ambulating freely in the room to denies any discomfort at this time. Attempting trans-for to [facility] for tertiary care. Continues with consultation with Dr. Amaral on antifungal and cefepime lLinezolid Objective - Vital Signs Vital signs: Vital Signs Temp 97.1 F L 05/26/17 04:23 Pulse 113 H 05/26/17 04:23 Resp 16 05/26/17 04:23 BP 132/84 05/26/17 04:23 Pulse Ox 97 05/26/17 04:23 Intake & Output 05/25/17 05/26/17 05/26/17 18:59 06:59 18:59 Intake Total 350 Balance 350 Weight 81.647 kg Intake: Intake, IV Titration 350 Amount Cefepime 2 gm In Sodium 50 Chloride 0.9% 50 ml @ 100 mls/hr IVPB Q8HR [facility] Rx# :[id number] Linezolid 600 mg In 300 Dextrose/Water 1 300ml. bag @ 150 mls/hr IVPB Q12HR [facility] Rx#:[id number] Other: Voiding Method Toilet Toilet # Voids 4 - Constitutional General appearance: Present: average body habitus - EENT Eyes: Present: abnormal pupil Ears: bilateral: normal - Neck Neck: Present: normal ROM - Respiratory Respiratory: bilateral: CTA - Cardiovascular Rhythm: regular - Gastrointestinal General gastrointestinal: Present: soft - Integumentary Integumentary: Present: normal - Neurologic Neurologic: Present: CNII-XII intact - Musculoskeletal Musculoskeletal: Present: gait normal - Labs CBC & Chem 7: 05/26/17 07:14 05/26/17 07:14 Labs: Abnormal Lab Results - Last 24 Hours (Table) 05/26/17 05/26/17 Range/Units 07:14 07:14 Hgb 11.5 L (13.0-17.5) gm/dL Hct 38.0 L (39.0-53.0) % MCH 24.2 L (25.0-35.0) pg MCHC 30.3 L (31.0-37.0) g/dL RDW 17.8 H (11.5-15.5) % Plt Count 489 H (150-450) k/uL Eosinophils # 1.0 H (0-0.7) k/uL Creatinine 0.63 L (0.66-1.25) mg/dL Glucose 181 H (74-99) mg/dL Calcium 11.0 H (8.4-10.2) mg/dL Microbiology - Last 24 Hours (Table) 05/23/17 05:15 Blood Culture - Preliminary Blood No Growth after 72 hours 05/19/17 23:00 Blood Culture - Final Blood No Growth after 144 hours 05/21/17 11:00 Blood Culture Gram Stain - Final Blood Blood Culture - Final Alecia albicans Alpha Hemolytic Streptococcus 05/22/17 10:27 Blood Culture - Preliminary Blood No Growth after 72 hours 05/24/17 00:20 Catheter Tip Culture - Preliminary Catheter Tip Assessment and Plan Plan: Assessment Abdominal pain with vomiting and diarrhea improved Pneumonia Sepsis as evidenced by positive blood cultures source PICC line Positive blood culture for Alecia albicans and the hemolytic strep Anemia microcytic Coumadin coagulopathy Hypokalemia DVT bilateral arms Degenerative joint disease history of GERD Hypertension history of splenomegaly Anxiety disorder Lumbar osteomyelitis treated at [facility] 04/10/2017 PICC lines removed has Started to right hand Continue consultation with Dr. Amaral Hopeful discharge to [facility] for tertiary care
[2017-05-26] MEDS: LINEZOLID 600 MG in DEXTROSE/WATER 1 300ML.BAG IVPB SCH ×2 (13:47→20:29)
--- NOTE | 2017-05-26 22:10 | P.PN ---
Subjective Progress Note Date: 05/26/17 Principal diagnosis: sepsis 46-year-old male well-known to the infectious disease service regarding his many hospitalizations. He's had multiple bouts of sepsis including PICC line related infections that were polymicrobial in nature. In the latter part of 2017 he was in the [facility] for potential abdominal wall reconstructive surgery. However because of the patient's many many infections he was deemed a very poor candidate even for biological mesh because of the risk of infection. Fortunately the abdominal wall is intact. He does have intermittent bouts of some discomfort. He then relates he started developing increasing amounts of back pain. He was seen by his surgeon at [facility]. 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 Then reports that he underwent a decompressive procedure isn't receiving intravenous antibiotic therapy with daptomycin and Tefloro. Patient chaz was doing relatively well until he had the sudden onset of increasing abdominal pain associated with nausea and emesis. He felt very poorly. At presentation he had evidence of high-grade fever some chills and appeared to have sepsis. With evidence of a positive blood culture for gram-negative bacilli infectious diseases consultation has been requested. Data from the outside hospital has been requested. This is to clarify his blood cultures, surgical cultures, and current inpatient intravenous antibiotic therapy. The patient has significant difficulties with IV access. At this facility and at [facility] there have been difficulties with placement of his PICC lines. Other than his chronic back pain is stable. Fever and chills improved. Appetite is adequate. The laboratory is now related that in addition to the gram-positive and gram- negative bacterial infection there is evidence of yeast in the blood culture. Dr. Nova of surgery has been called and have placed temporary central line, with removal of his PICC line which is a source of his sepsis. Despite remove the PICC line we again have a possible culture for gram-positive cocci in chains. Likely enterococcus. Consulate the time of the call of the positive blood culture the antimicrobial therapy was altered from daptomycin to Zyvox. Once he has complete clearance of his sepsis than a Hinds catheter may be placed to complete his course of intravenous antibiotic therapy that will be required. Follow up blood cultures again positive now also with yeast. With the culture now again having yeast present despite antifungal therapy ultrasound to the left arm is requested to evaluate the prior PICC site. Of note arm has no swelling erythema or tenderness. 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 We had no ability to transfer to an outside hospital. Nursing staff relate that a 3 mL syringe was attached to his triple-lumen catheter over the weekend. Nursing staff unable to recall or relate how it got there. Concerns ongoing infection the triple-lumen catheter was removed and IV was placed into his right arm. Syringe was not sent for evaluation, and drug screen was negative. We now evidence of blood cultures are coming back negative. Showing evidence of response finally to antimicrobial therapy. Patient is feeling better. Objective - Vital Signs Vital signs: Vital Signs Temp 98.1 F 05/26/17 20:26 Pulse 117 H 05/26/17 20:26 Resp 16 05/26/17 20:26 BP 148/92 05/26/17 20:26 Pulse Ox 99 05/26/17 20:26 Intake & Output 05/26/17 05/26/17 05/27/17 06:59 18:59 06:59 Intake Total 350 800 400 Balance 350 800 400 Weight 81.647 kg Intake: Intake, IV Titration 350 300 Amount Cefepime 2 gm In Sodium 50 50 Chloride 0.9% 50 ml @ 100 mls/hr IVPB Q8HR PRIS[facility]A Rx# :[id number] Linezolid 600 mg In 300 150 Dextrose/Water 1 300ml. bag @ 150 mls/hr IVPB Q12HR PRIS[facility]A Rx#:[id number] Micafungin 100 mg In 100 Sodium Chloride 0.9% 100 ml @ 100 mls/hr IVPB DAILY PRISCILLA Rx#:[id number] Oral 500 400 Other: Voiding Method Toilet Toilet # Voids 1 - Exam 46-year-old male who is more comfortable at this time that admission. his back pain is stabilized. HEENT: Anicteric conjunctiva are pink and moist nasal mucosa grossly intact without significant lesions, there is no thrush. Does have evidence of the injury to his eye. Neck: The neck is supple without significant lymphadenopathy or thyromegaly. Surgical scar is well-healed, the triple-lumen right IJ removed. Lungs: Good bilateral air entry without significant crackles or wheezing. There is no significant bronchial sounds. There is no egophony or dullness. Heart: Regular with an audible S1 and S2 no S3 soft S4 2/6 murmur left sternal border without radiation. PMI was nondisplaced Abdomen: Positive bowel sounds soft and without significant tenderness. No palpable masses or organomegaly. There is benefits of the extensive prior surgical interventions but the abdominal wall is intact without opening or drainage. Extremities: Left upper extremity prior PICC line site is without expressible purulence, no significant tenderness or ascending erythema. Right upper extremity reveals some swelling in the patient relates a recent deep venous thrombosis diagnosed at [facility]. Confirmed here. Lower extremities have some trace edema. Spine shows evidence of the recent surgical interventions that are healing well some point tenderness but no bulge or purulence is seen. Patient is able to up and ambulate and has no other acute changes to his spine. Neuro: Awake alert oriented to person place and time. There are no acute new gross focal sensory motor deficits. - Labs CBC & Chem 7: 05/26/17 07:14 05/26/17 07:14 Labs: Abnormal Lab Results - Last 24 Hours (Table) 05/26/17 05/26/17 Range/Units 07:14 07:14 Hgb 11.5 L (13.0-17.5) gm/dL Hct 38.0 L (39.0-53.0) % MCH 24.2 L (25.0-35.0) pg MCHC 30.3 L (31.0-37.0) g/dL RDW 17.8 H (11.5-15.5) % Plt Count 489 H (150-450) k/uL Eosinophils # 1.0 H (0-0.7) k/uL Creatinine 0.63 L (0.66-1.25) mg/dL Glucose 181 H (74-99) mg/dL Calcium 11.0 H (8.4-10.2) mg/dL Microbiology - Last 24 Hours (Table) 05/24/17 00:20 Catheter Tip Culture - Final Catheter Tip 05/22/17 10:27 Blood Culture - Preliminary Blood No Growth after 96 hours 05/23/17 05:15 Blood Culture - Preliminary Blood No Growth after 72 hours 05/19/17 23:00 Blood Culture - Final Blood No Growth after 144 hours Laboratory Results WBC 8.7 k/uL (3.8-10.6) 05/26/17 07:14 RBC 4.75 m/uL (4.30-5.90) 05/26/17 07:14 Hgb 11.5 gm/dL (13.0-17.5) L 05/26/17 07:14 Hct 38.0 % (39.0-53.0) L 05/26/17 07:14 MCV 80.0 fL (80.0-100.0) 05/26/17 07:14 MCH 24.2 pg (25.0-35.0) L 05/26/17 07:14 MCHC 30.3 g/dL (31.0-37.0) L 05/26/17 07:14 RDW 17.8 % (11.5-15.5) H 05/26/17 07:14 Plt Count 489 k/uL (150-450) H 05/26/17 07:14 Neutrophils % 57 % 05/26/17 07:14 Lymphocytes % 25 % 05/26/17 07:14 Monocytes % 4 % 05/26/17 07:14 Eosinophils % 11 % 05/26/17 07:14 Basophils % 1 % 05/26/17 07:14 Neutrophils # 4.9 k/uL (1.3-7.7) 05/26/17 07:14 Lymphocytes # 2.2 k/uL (1.0-4.8) 05/26/17 07:14 Monocytes # 0.4 k/uL (0-1.0) 05/26/17 07:14 Eosinophils # 1.0 k/uL (0-0.7) H 05/26/17 07:14 Basophils # 0.1 k/uL (0-0.2) 05/26/17 07:14 Manual Slide Review Performed 05/10/17 22:40 Hypochromasia Marked 05/26/17 07:14 Poikilocytosis Slight 05/26/17 07:14 Anisocytosis Slight 05/26/17 07:14 Microcytosis Slight 05/26/17 07:14 PT 10.1 sec (9.0-12.0) 05/23/17 05:15 INR 1.0 (<1.2) 05/23/17 05:15 APTT 90.4 sec (22.0-30.0) H 05/10/17 22:40 Sodium 139 mmol/L (137-145) 05/26/17 07:14 Potassium 4.9 mmol/L (3.5-5.1) 05/26/17 07:14 Chloride 99 mmol/L (98-107) 05/26/17 07:14 Carbon Dioxide 24 mmol/L (22-30) 05/26/17 07:14 Anion Gap 16 mmol/L 05/26/17 07:14 BUN 14 mg/dL (9-20) 05/26/17 07:14 Creatinine 0.63 mg/dL (0.66-1.25) L 05/26/17 07:14 Est GFR (MDRD) Af Amer >60 (>60 ml/min/1.73 sqM) 05/26/17 07:14 Est GFR (MDRD) Non-Af >60 (>60 ml/min/1.73 sqM) 05/26/17 07:14 Glucose 181 mg/dL (74-99) H 05/26/17 07:14 Calcium 11.0 mg/dL (8.4-10.2) H 05/26/17 07:14 Phosphorus 3.8 mg/dL (2.5-4.5) 05/10/17 22:40 Magnesium 1.7 mg/dL (1.6-2.3) 05/25/17 06:53 Total Bilirubin 0.3 mg/dL (0.2-1.3) 05/11/17 09:16 AST 14 U/L (17-59) L 05/11/17 09:16 ALT 26 U/L (21-72) 05/11/17 09:16 Alkaline Phosphatase 184 U/L (38-126) H 05/11/17 09:16 Total Creatine Kinase <20 U/L (55-170) L 05/10/17 22:40 CK-MB (CK-2) 0.5 ng/mL (0.0-2.4) 05/10/17 22:40 CK-MB (CK-2) Rel Index 05/10/17 22:40 Troponin I <0.012 ng/mL (0.000-0.034) 05/10/17 22:40 Total Protein 7.4 g/dL (6.3-8.2) 05/11/17 09:16 Albumin 3.2 g/dL (3.5-5.0) L 05/11/17 09:16 Urine Color Colorless 05/24/17 14:25 Urine Appearance Clear (Clear) 05/24/17 14:25 Urine pH 7.0 (5.0-8.0) 05/24/17 14:25 Ur Specific [place]aft 1.002 (1.001-1.035) 05/24/17 14:25 Urine Protein Negative (Negative) 05/24/17 14:25 Urine Glucose (UA) Negative (Negative) 05/24/17 14:25 Urine Ketones Negative (Negative) 05/24/17 14:25 Urine Blood Negative (Negative) 05/24/17 14:25 Urine Nitrite Negative (Negative) 05/24/17 14:25 Urine Bilirubin Negative (Negative) 05/24/17 14:25 Urine Urobilinogen <2.0 mg/dL (<2.0) 05/24/17 14:25 Ur Leukocyte Esterase Negative (Negative) 05/24/17 14:25 Ur Random Creatinine 11.7 mg/dL 05/24/17 14:25 Urine Opiates Screen Negative ng/mL (Negative) 05/24/17 14:25 Urine Methadone Screen Negative ng/mL (Negative) 05/24/17 14:25 Ur Propoxyphene Screen Negative ng/mL (Negative) 05/24/17 14:25 Urine Barbiturates Negative ng/mL (Negative) 05/24/17 14:25 Ur Phencyclidine Scrn Negative ng/mL (Negative) 05/24/17 14:25 Ur Amphetamine Screen Negative ng/mL (Negative) 05/24/17 14:25 U Benzodiazepines Scrn Negative ng/mL (Negative) 05/24/17 14:25 Urine Cocaine Screen Negative ng/mL (Negative) 05/24/17 14:25 U Cannabinoids Screen Negative ng/mL (Negative) 05/24/17 14:25 Urine Alcohol Negative mg/dL (Negative) 05/24/17 14:25 Microbiology 05/24/17 00:20 Catheter Tip Catheter Tip Culture - Final 05/22/17 10:27 Blood Blood Culture - Preliminary No Growth after 96 hours 05/23/17 05:15 Blood Blood Culture - Preliminary No Growth after 72 hours 05/19/17 23:00 Blood Blood Culture - Final No Growth after 144 hours 05/21/17 11:00 Blood Blood Culture Gram Stain - Final 05/21/17 11:00 Blood Blood Culture - Final Alecia albicans Alpha Hemolytic Streptococcus 05/21/17 11:00 Blood Blood Culture Gram Stain - Final 05/21/17 11:00 Blood Blood Culture - Final Alecia albicans 05/21/17 11:00 Blood Blood Culture - Final 05/21/17 10:45 Blood Blood Culture - Final 05/19/17 00:15 Blood Blood Culture Gram Stain - Final 05/19/17 00:15 Blood Blood Culture - Final Enterococcus faecium 05/19/17 00:15 Blood Blood Culture - Final 05/13/17 08:33 Blood Blood Culture - Final No Growth after 144 hours 05/16/17 13:18 Picc Line Catheter Tip Culture - Final 05/14/17 07:02 Blood Blood Culture Gram Stain - Final 05/14/17 07:02 Blood Blood Culture - Final Enterococcus faecium 05/14/17 07:32 Blood Blood Culture Gram Stain - Final Yeast species 05/14/17 07:32 Blood Blood Culture - Final Alecia albicans 05/14/17 07:32 Blood Blood Culture - Final 05/11/17 07:53 Blood Blood Culture Gram Stain - Final 05/11/17 07:53 Blood Blood Culture - Final Escherichia coli Alpha Hemolytic Streptococcus Enterococcus faecium 05/14/17 07:02 Blood Blood Culture - Final 05/12/17 10:45 Urine,Clean Catch Urine Culture - Final 05/12/17 07:45 Blood Blood Culture - Final Assessment and Plan (1) Gram negative sepsis Narrative/Plan: 46 year male who is a very complicated and convoluted past medical history presents to the emergency center for further evaluation. He was having nausea and emesis and acute abdominal pain. This is now improved since he's been hydrated and received antibiotic therapy. Based on prior cultures antibiotic therapy at this time is been utilized with daptomycin and levofloxacin has been added based on his prior cultures. Cultures now available in the Levaquin is transitioned to cefepime to cover the drug resistant E. coli. Daptomycin continues. He is feeling better his fevers have improved. Data from [facility] is required as to recent surgery, recent blood and wound cultures, and clarification of his antibiotic therapy. As noted blood cultures are with Enterococcus faecalis, E. coli and the cefepime and daptomycin were being utilized. However new laboratories: The positive blood culture with yeast. With this micafungin was added. There is evidence of another positive blood culture. Appears to be failing daptomycin. Will be changed to Zyvox. Has gentamicin ALLERGY. Further blood cultures are requested. Fortunately he is feeling relatively well fever is resolved, PICC line removed and right IJ central line has been placed. Patient's had a marked improvement since removal of his PICC line. Pain control appears to be adequate Encouraged for improved protein intake. Abdominal binder in place He has noted there were further positive blood cultures. For now we have negative blood cultures at 72 and 96 hours. There was an event with his IJ catheter over the weekend but drug screen is negative. The patient will require long-term antibiotic therapy. With a negative blood culture surgery is been contacted to hopefully place a Hinds catheter to complete his course of therapy over the next nearly 40 days for his polymicrobial infection. He is instructed that after his discharge if he is a further difficulties with infection" his left arm he should report to his prior hospital which is [facility]. This is where his surgery was performed and is PICC line was placed that became infected and is noted they refused to accept him on transfer despite their prior relationship and care provided. Current Visit: Yes Status: Acute Code(s): A41.50 - GRAM-NEGATIVE SEPSIS, UNSPECIFIED SNOMED Code(s): 476146078 (2) Back pain Current Visit: No Status: Acute Code(s): M54.9 - DORSALGIA, UNSPECIFIED SNOMED Code(s): 024698469 (3) Fever Current Visit: No Status: Acute Priority: High Code(s): R50.9 - FEVER, UNSPECIFIED SNOMED Code(s): 080083441 (4) Hernia of abdominal wall Current Visit: Yes Status: Acute Code(s): K43.9 - VENTRAL HERNIA WITHOUT OBSTRUCTION OR GANGRENE SNOMED Code(s): 585425896
[2017-05-26] MEDS ORDERED: HYDROmorphone 2 MG TAB ONE (23:30)
[2017-05-27] MEDS ORDERED: HYDROmorphone 2 MG TAB ONE (02:30)
[2017-05-27] MEDS: CEFEPIME 2 GM in SODIUM CHLORIDE 0.9% 50 ML IVPB SCH ×3 (05:25→16:02)
[2017-05-27] MEDS: HYDROmorphone 2 MG TAB PO PRN ×5 (05:39→20:35)
[2017-05-27 08:19] LABS: Anisocytosis Slight; Basophils % (A) 1 %; Eosinophils # (A) 0.6 k/uL (0-0.7); Eosinophils % (A) 10 %; HCT 31.6 % (39.0-53.0); Hypochromasia Marked; Lymphocytes # (A) 1.3 k/uL (1.0-4.8); Lymphocytes % (A) 22 %; MCHC 30.1 g/dL (31.0-37.0); MCV 79.6 fL (80.0-100.0); Mean Platelet Volume 5.9; Microcytosis Slight; Monocytes # (A) 0.3 k/uL (0-1.0); Monocytes % (A) 5 %; Neutrophils # (A) 3.7 k/uL (1.3-7.7); Neutrophils % (A) 61 %; Platelet Count 355 k/uL (150-450); Poikilocytosis Slight; RBC 3.98 m/uL (4.30-5.90); RDW 18.4 % (11.5-15.5)
[2017-05-27 08:22] LABS: HGB 9.5 gm/dL (13.0-17.5)
[2017-05-27 08:25] LABS: Anion Gap 11 mmol/L; Blood Urea Nitrogen 14 mg/dL (9-20); Calcium 10.2 mg/dL (8.4-10.2); Carbon Dioxide 26 mmol/L (22-30); Chloride 101 mmol/L (98-107); Glucose 145 mg/dL (74-99); Potassium 4.4 mmol/L (3.5-5.1); Sodium 138 mmol/L (137-145)
[2017-05-27] MEDS: PANTOPRAZOLE 40 MG TABLET PO SCH ×2 (09:11→17:51)
[2017-05-27] MEDS: AMMONIUM LACTATE 12% LOTION 225 GM BTL TOPICAL SCH (09:12)
[2017-05-27] MEDS: LISINOPRIL 20 MG TAB PO SCH ×2 (09:12→20:35)
--- NOTE | 2017-05-27 09:36 | P.PN ---
Subjective Progress Note Date: 05/27/17 46-year-old seen and examined sitting up on the edge of the bed. Dr. kilgore has been requested by the attending and infectious disease to place Hinds catheter possible today repeat blood cultures have been negative the plan is the patient needs to complete IV antibiotic over the next 40 days for his polymicrobial infection. Patient states he's anxious to have the procedure done hoping to go home today. Patient initially was seen this admission for a surgical eval umbilical hernias with no evidence of an acute surgical abdomen at that time recommendations were conservative management for the umbilical hernia currently patient continues to report no nausea no vomiting abdomen is soft with a umbilical hernia palpable Objective - Vital Signs Vital signs: Vital Signs Temp 96.8 F L 05/27/17 02:41 Pulse 106 H 05/27/17 02:41 Resp 16 05/27/17 02:41 BP 126/81 05/27/17 02:41 Pulse Ox 96 05/27/17 02:41 Intake & Output 05/26/17 05/27/17 05/27/17 18:59 06:59 18:59 Intake Total 800 500 Balance 800 500 Weight 81.647 kg Intake: Intake, IV Titration 300 100 Amount Cefepime 2 gm In Sodium 50 100 Chloride 0.9% 50 ml @ 100 mls/hr IVPB Q8HR [facility] Rx# :[id number] Linezolid 600 mg In 150 Dextrose/Water 1 300ml. bag @ 150 mls/hr IVPB Q12HR [facility] Rx#:[id number] Micafungin 100 mg In 100 Sodium Chloride 0.9% 100 ml @ 100 mls/hr IVPB DAILY [facility]LLA Rx#:[id number] Oral 500 400 Other: Voiding Method Toilet # Voids 1 - Exam Physical exam 46-year-old male sitting up in a chair pleasant cooperative oriented 3 anxious to be discharged waiting "Hinds catheter to be placed Lungs adequate air movement bilaterally on room air Heart S1-S2 audible no chest pain Abdomen soft not distended nontender palpable umbilical hernia no nausea no vomiting and denying abdominal pain states no stool Extremities below-knee MARÍA hose in place peripheral IV right upper arm no evidence of redness - Labs CBC & Chem 7: 05/27/17 07:42 05/27/17 07:42 Labs: Abnormal Lab Results - Last 24 Hours (Table) 05/27/17 05/27/17 Range/Units 07:42 07:42 RBC 3.98 L (4.30-5.90) m/uL Hgb 9.5 L D (13.0-17.5) gm/dL Hct 31.6 L (39.0-53.0) % MCV 79.6 L (80.0-100.0) fL MCH 24.0 L (25.0-35.0) pg MCHC 30.1 L (31.0-37.0) g/dL RDW 18.4 H (11.5-15.5) % Creatinine 0.59 L (0.66-1.25) mg/dL Glucose 145 H (74-99) mg/dL Microbiology - Last 24 Hours (Table) 05/23/17 05:15 Blood Culture - Preliminary Blood No Growth after 96 hours 05/24/17 00:20 Catheter Tip Culture - Final Catheter Tip 05/22/17 10:27 Blood Culture - Preliminary Blood No Growth after 96 hours 05/19/17 23:00 Blood Culture - Final Blood No Growth after 144 hours Assessment and Plan Assessment: Impression Present on admission abdominal pain nausea vomiting diarrhea resolved Known history of umbilical hernias Present on admission Coumadin coagulopathy Lumbar osteomyelitis with a recent lumbar surgery April 10 at [facility] 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 Rosie Pimentel nurse practitioner acting as scribe for signing physician.
[2017-05-27] MEDS: MICAFUNGIN 100 MG in SODIUM CHLORIDE 0.9% 100 ML IVPB SCH (10:15)
--- NOTE | 2017-05-27 11:55 | P.PN ---
Subjective Principal diagnosis: Patient resting in bed without complaint. Awaiting Hinds placement. Will then be treated outpatient with Dr. Amaral. Attempted to transfer patient to tertiary care center unable to get centers to accept patient Objective - Vital Signs Vital signs: Vital Signs Temp 97.5 F L 05/27/17 07:00 Pulse 93 05/27/17 07:00 Resp 16 05/27/17 07:00 BP 114/81 05/27/17 07:00 Pulse Ox 96 05/27/17 07:00 Intake & Output 05/26/17 05/27/17 05/27/17 18:59 06:59 18:59 Intake Total 800 500 Balance 800 500 Weight 81.647 kg Intake: Intake, IV Titration 300 100 Amount Cefepime 2 gm In Sodium 50 100 Chloride 0.9% 50 ml @ 100 mls/hr IVPB Q8HR PR[facility]LLA Rx# :[id number] Linezolid 600 mg In 150 Dextrose/Water 1 300ml. bag @ 150 mls/hr IVPB Q12HR PRISCILLA Rx#:[id number] Micafungin 100 mg In 100 Sodium Chloride 0.9% 100 ml @ 100 mls/hr IVPB DAILY PRISCILLA Rx#:[id number] Oral 500 400 Other: Voiding Method Toilet # Voids 1 - Constitutional General appearance: Present: average body habitus - EENT Eyes: Present: abnormal pupil Ears: bilateral: normal - Neck Neck: Present: normal ROM - Respiratory Respiratory: bilateral: CTA - Cardiovascular Rhythm: regular - Gastrointestinal General gastrointestinal: Present: soft - Integumentary Integumentary: Present: normal - Neurologic Neurologic: Present: CNII-XII intact - Psychiatric Psychiatric: Present: A&O x's 3, appropriate affect, intact judgment & insight - Labs CBC & Chem 7: 05/27/17 07:42 05/27/17 07:42 Labs: Abnormal Lab Results - Last 24 Hours (Table) 05/27/17 05/27/17 Range/Units 07:42 07:42 RBC 3.98 L (4.30-5.90) m/uL Hgb 9.5 L D (13.0-17.5) gm/dL Hct 31.6 L (39.0-53.0) % MCV 79.6 L (80.0-100.0) fL MCH 24.0 L (25.0-35.0) pg MCHC 30.1 L (31.0-37.0) g/dL RDW 18.4 H (11.5-15.5) % Creatinine 0.59 L (0.66-1.25) mg/dL Glucose 145 H (74-99) mg/dL Microbiology - Last 24 Hours (Table) 05/23/17 05:15 Blood Culture - Preliminary Blood No Growth after 96 hours 05/24/17 00:20 Catheter Tip Culture - Final Catheter Tip 05/22/17 10:27 Blood Culture - Preliminary Blood No Growth after 96 hours Assessment and Plan Plan: Assessment Abdominal pain with vomiting and diarrhea resolved Incisional hernias Pneumonia Sepsis as evidenced by positive blood cultures from PICC line Coumadin coagulopathy anemia microcytic Hypokalemia 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 Amaral Patient to follow-up with Dr. Amaral after discharge
[2017-05-27] MEDS: LINEZOLID 600 MG in DEXTROSE/WATER 1 300ML.BAG IVPB SCH ×2 (12:13→20:34)
[2017-05-28] MEDS: HYDROmorphone 2 MG TAB PO PRN ×4 (00:21→15:07)
[2017-05-28] MEDS: CEFEPIME 2 GM in SODIUM CHLORIDE 0.9% 50 ML IVPB SCH ×3 (00:22→15:07)
[2017-05-28] MEDS: LISINOPRIL 20 MG TAB PO SCH (08:31)
[2017-05-28] MEDS: AMMONIUM LACTATE 12% LOTION 225 GM BTL TOPICAL SCH (08:32)
[2017-05-28] MEDS: PANTOPRAZOLE 40 MG TABLET PO SCH ×2 (08:32→16:28)
[2017-05-28 09:17] LABS: Anisocytosis Slight; Basophils # (A) 0.1 k/uL (0-0.2); Basophils % (A) 1 %; Eosinophils # (A) 0.5 k/uL (0-0.7); Eosinophils % (A) 7 %; HCT 39.3 % (39.0-53.0); HGB 11.5 gm/dL (13.0-17.5); Hypochromasia Marked; Lymphocytes # (A) 1.5 k/uL (1.0-4.8); Lymphocytes % (A) 20 %; MCH 23.7 pg (25.0-35.0); MCHC 29.3 g/dL (31.0-37.0); MCV 81.1 fL (80.0-100.0); Mean Platelet Volume 6.1; Microcytosis Slight; Monocytes # (A) 0.4 k/uL (0-1.0); Monocytes % (A) 5 %; Neutrophils # (A) 4.9 k/uL (1.3-7.7); Neutrophils % (A) 66 %; Platelet Count 439 k/uL (150-450); Poikilocytosis Slight; RBC 4.85 m/uL (4.30-5.90); RDW 18.2 % (11.5-15.5); WBC 7.5 k/uL (3.8-10.6)
[2017-05-28 09:29] LABS: Anion Gap 14 mmol/L; Blood Urea Nitrogen 13 mg/dL (9-20); Calcium 11.1 mg/dL (8.4-10.2); Carbon Dioxide 27 mmol/L (22-30); Chloride 99 mmol/L (98-107); Glucose 145 mg/dL (74-99); Potassium 4.5 mmol/L (3.5-5.1); Sodium 140 mmol/L (137-145)
[2017-05-28] MEDS: MICAFUNGIN 100 MG in SODIUM CHLORIDE 0.9% 100 ML IVPB SCH (09:35)
[2017-05-28] MEDS ORDERED: SODIUM CHLORIDE 0.9% 1,000 ML IV ONE (11:25)
[2017-05-28] MEDS: ONDANSETRON 4 MG/2 ML VIAL IVP PRN (11:27)
[2017-05-28] MEDS ORDERED: DEXAMETHASONE SOD PHOSPHATE 10 MG/ML 1 ML VIAL IV ONE (11:28)
[2017-05-28] MEDS ORDERED: fentaNYL (PF) 50 MCG/ML 2 ML AMP IV ONE (12:20)
[2017-05-28] MEDS ORDERED: PROPOFOL 10 MG/ML 20 ML VIAL IV ONE (13:13)
[2017-05-28] MEDS ORDERED: MIDAZOLAM 2 MG/2 ML VIAL ONE (13:13)
[2017-05-28] MEDS ORDERED: fentaNYL (PF) 50 MCG/ML 2 ML AMP ONE (13:13)
[2017-05-28] MEDS ORDERED: LIDOCAINE 1% INJ 10MG/ML (20 ML MDV) ONE (13:13)
[2017-05-28] MEDS ORDERED: KETAMINE 10 MG/ML 20 ML VIAL ONE (13:13)
[2017-05-28] MEDS ORDERED: diphenhydrAMINE 50 MG/ML 1 ML VIAL ONE (13:13)
[2017-05-28] MEDS ORDERED: BUPIVACAINE (PF) 0.25% 30 ML VIAL SQ ONE (13:31)
--- NOTE | 2017-05-28 13:48 | P.OP ---
Date of Procedure: 05/28/17 Preoperative Diagnosis: Endocarditis Sepsis Postoperative Diagnosis: History of endocarditis History of sepsis Procedure(s) Performed: Placement of right subclavian Mediport Anesthesia: MAC Surgeon: Uriah Goetz Estimated Blood Loss (ml): 5 Pathology: none sent Condition: stable Disposition: PACU Description of Procedure: PROCEDURE: The patient was placed on the operating table in the supine position. She received MAC anesthetic. The [right] chest was prepped and draped in the usual sterile fashion. The skin underneath the right clavicle was anesthetized with 1% Xylocaine and using Seldinger technique, the right subclavian vein was cannulized. The wire was placed through the needle and positioned under fluoroscopy. Next, the needle was removed and the port site was anesthetized with 1% Xylocaine. Skin was incised with #15 blade and port pocket was made using blunt and sharp dissection. Following this the catheter was attached to the sport and the port was flushed. The port was positioned into the pocket site and was secured with 3-0 Vicryl suture. The catheter was then brought out through the wire site and then the dilator sheath was placed over the wire and the dilator and the wire were removed. The catheter was placed through the sheath and the sheath was removed. The port was flushed with hep-lock solution. Skin was closed with interrupted 3-0 Vicryl sutures. Steri-Strips were applied. The patient tolerated the procedure well. The patient was sent to recovery room for chest x-ray after the procedure.
[2017-05-28 14:15] VITALS: TEMP 98.2
--- NOTE | 2017-05-28 14:28 | XR ---
EXAMINATION TYPE: XR chest 1V DATE OF EXAM: 05/28/2017 COMPARISON: Prior chest x-ray 05/16/2017 HISTORY: Status post central venous catheter placement TECHNIQUE: Single frontal view of the chest is obtained. FINDINGS: There is been interval placement of a port in the left pectoral region, distal tip the cat heter is overlying the superior vena cava. Postop changes are noted to the cervical spine. No evident pneumothorax or pleural effusion. Cardiac mediastinal silhouette is stable. Right jugular central ve nous catheter has been removed. IMPRESSION: No evident complication status post left subclavian central venous Port-A-Cath placement .
[2017-05-28 15:04] VITALS: BP 181/109; PULSE 91; RESP 14
[2017-05-28] MEDS: LINEZOLID 600 MG in DEXTROSE/WATER 1 300ML.BAG IVPB SCH (16:23)
--- NOTE | 2017-05-28 16:44 | P.DS ---
Providers Date of admission: 05/10/17 23:32 Expected date of discharge: 05/28/17 Attending physician: Juan Carlos Ruvalcaba Consults: 05/12/17 12:41 Consult Physician Urgent Consulting Provider: Uriah Goetz Consult Reason/Comments: abd pain Do you want consulting provider notified?: Yes 05/12/17 20:25 Consult Physician Stat Consulting Provider: Kojo Amaral Consult Reason/Comments: positive blood cultures from PICC line Do you want consulting provider notified?: Yes 05/13/17 13:56 Consult Physician Urgent Consulting Provider: Shamir Hinton Consult Reason/Comments: right arm DVT treatment Do you want consulting provider notified?: Yes 05/13/17 18:34 Consult Physician Routine Consulting Provider: Avery Cummings Consult Reason/Comments: Chronic DVT, Anticoagulant therapy Do you want consulting provider notified?: Yes 05/26/17 14:08 Consult Physician Routine Consulting Provider: Uriah Goetz Consult Reason/Comments: villagran placement Do you want consulting provider notified?: Yes Primary care physician: Juan Carlos Ruvalcaba Pertinent Studies: 46-year-old male presented for admission with multiple medical issues patient was found to be septic patient had consultation with of hematology for anticoagulation had a consultation with surgery for Port-A-Cath insertion. Patient was treated for sepsis with infectious disease Dr. Amaral. Patient had PICC line's removed for sepsis Assessment abdominal pain with vomiting and diarrhea resolved Pneumonia resolved sepsis as evidenced by positive blood cultures from PICC line Coumadin coagulopathy Anemia microcytic hypokalemia resolved DVTs bilateral arms from PICC lines GERD Degenerative joint disease Remote history of endocarditis fromPICC lines Hypertension History of splenomegaly Anxiety disorder Lumbar osteomyelitis treated at [place] in 1279 PICC line removals Port-A-Cath insertion Plan Follow-up with Dr. Amaral for IV therapy Patient Condition at Discharge: Fair Plan - Discharge Summary Discharge Rx Participant: No New Discharge Prescriptions: New Apixaban [Eliquis] 5 mg PO BID #60 tab Cefepime HCl [Maxipime] 2 gm IV Q8HR #84 vial Linezolid [Zyvox] 600 mg PO Q12H #56 tab Non-Formulary Drug [Non Formulary Drug] 100 mg IVPB DAILY #28 misc Pantoprazole [Protonix] 40 mg PO AC-BID 30 Days #30 tablet.dr Continue Polyethylene Glycol 3350 [Miralax] 17 gm PO DAILY PRN PRN Reason: Constipation HYDROmorphone HCL [Dilaudid] 8 mg PO Q4H PRN PRN Reason: Pain fentaNYL 75MCG/HR PATCH [Duragesic 75MCG/HR] 1 patch TRANSDERM Q48H diphenhydrAMINE [Benadryl] 25 mg PO HS Acetaminophen Tab [Tylenol] 1,000 mg PO TID Naproxen [Naprosyn] 500 mg PO Q12HR PRN PRN Reason: Fever And/ Or Pain Ondansetron HCl [Zofran] 8 mg PO BID PRN PRN Reason: Nausea And Vomiting Ferrous Fumarate/Ascorbic Acid [Aj-Sequels 65-25 mg Caplet] 1 tab PO DAILY tiZANidine [Zanaflex] PO Q6H PRN PRN Reason: Muscle Spasm Lisinopril [Zestril] 20 mg PO DAILY 30 Days #30 tab Discontinued Ranitidine HCl [Zantac] 150 mg PO BID Rifampin [Rifadin] 600 mg PO DAILY Ferrous Sulfate [Feosol] 325 mg PO DAILY Discharge Medication List HYDROmorphone HCL [Dilaudid] 8 mg PO Q4H PRN 09/13/15 [History] Polyethylene Glycol 3350 [Miralax] 17 gm PO DAILY PRN 09/13/15 [History] diphenhydrAMINE [Benadryl] 25 mg PO HS 09/13/15 [History] fentaNYL 75MCG/HR PATCH [Duragesic 75MCG/HR] 1 patch TRANSDERM Q48H 09/13/15 [ History] Acetaminophen Tab [Tylenol] 1,000 mg PO TID 10/08/15 [History] Naproxen [Naprosyn] 500 mg PO Q12HR PRN 03/20/16 [History] Ferrous Fumarate/Ascorbic Acid [Aj-Sequels 65-25 mg Caplet] 1 tab PO DAILY [History] Ondansetron HCl [Zofran] 8 mg PO BID PRN 05/10/17 [History] tiZANidine [Zanaflex] PO Q6H PRN 05/11/17 [History] Apixaban [Eliquis] 5 mg PO BID #60 tab 05/14/17 [Rx] Cefepime HCl [Maxipime] 2 gm IV Q8HR #84 vial 05/28/17 [Rx] Linezolid [Zyvox] 600 mg PO Q12H #56 tab 05/28/17 [Rx] Lisinopril [Zestril] 20 mg PO DAILY 30 Days #30 tab 05/28/17 [Rx] Non-Formulary Drug [Non Formulary Drug] 100 mg IVPB DAILY #28 misc 05/28/17 [Rx] Pantoprazole [Protonix] 40 mg PO AC-BID 30 Days #30 tablet. 05/28/17 [Rx] Follow up Appointment(s)/Referral(s): Juan Carlos Ruvalcaba MD [Primary Care Provider] - 1-2 days Kojo Amaral MD [STAFF PHYSICIAN] - 2 Weeks Uriah Goetz MD [STAFF PHYSICIAN] - 1 Week Ambulatory/Diagnostic Orders: Basic Metabolic Panel [LAB.AMB] Location: Determined By Patient Complete Blood Count w/diff [LAB.AMB] Location: Determined By Patient Activity/Diet/Wound Care/Special Instructions: [facility] - [phone] Nm IV Rx: (infusion supply [employer]): [phone]- will deliver supplies tonight Please tow picker Herminia from [employer]. Eliquis cost $8.35.
== END 2017-05-28 18:15 | disposition home or self-care (01) | DRG 314 ==
LOC: EC 21:29 → 3SUR 23:32
PROVIDERS: ADMIT Family Medicine; ATTEND Family Medicine
PROC: 02HV33Z Insertion of Infusion Device into Superior Vena Cava, Percutaneous Approach (ICD-10-PCS; principal; 2017-05-16)
PROC: 05H533Z Insertion of Infusion Device into Right Subclavian Vein, Percutaneous Approach (ICD-10-PCS; 2017-05-28)
PROC: 0JH60WZ Insertion of Totally Implantable Vascular Access Device into Chest Subcutaneous Tissue and Fascia, Open Approach (ICD-10-PCS; 2017-05-28)
DX: T80.211A Bloodstream infection due to central venous catheter, initial encounter (principal); A41.50 Gram-negative sepsis, unspecified; J18.9 Pneumonia, unspecified organism; B37.7 Candidal sepsis; D68.9 Coagulation defect, unspecified; E87.5 Hyperkalemia; F11.20 Opioid dependence, uncomplicated; Y71.8 Miscellaneous cardiovascular devices associated with adverse incidents, not elsewhere classified; D50.9 Iron deficiency anemia, unspecified; E87.6 Hypokalemia; F41.9 Anxiety disorder, unspecified; G47.419 Narcolepsy without cataplexy; G89.4 Chronic pain syndrome; H54.61 Unqualified visual loss, right eye, normal vision left eye; I10 Essential (primary) hypertension; K21.9 Gastro-esophageal reflux disease without esophagitis; K42.9 Umbilical hernia without obstruction or gangrene; K43.2 Incisional hernia without obstruction or gangrene; M19.90 Unspecified osteoarthritis, unspecified site; R79.1 Abnormal coagulation profile; T45.515A Adverse effect of anticoagulants, initial encounter; Z79.01 Long term (current) use of anticoagulants; Z79.899 Other long term (current) drug therapy; Z83.3 Family history of diabetes mellitus; Z86.14 Personal history of Methicillin resistant Staphylococcus aureus infection; Z87.01 Personal history of pneumonia (recurrent); Z90.49 Acquired absence of other specified parts of digestive tract; Z86.718 Personal history of other venous thrombosis and embolism; Z88.1 Allergy status to other antibiotic agents; Z91.041 Radiographic dye allergy status
CPT/HCPCS: 36415; 71045; 74022; 80048; 80053; 80306; 81003; 82550; 82553; 82570; 83735; 84100; 84484; 85025; 85027; 85610; 85730; 87040; 87070; 87077; 87086; 87186; 93005; 93306; 93970; 94760; 96361; 96365; 96375; 99285